=== PATIENT | male | born 1950 | race Caucasian/White ===

== ENCOUNTER 2017-01-28 15:39 | Emergency (ER) | payer OTHER ==
[2017-01-28 15:47] VITALS: BP 155/103
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
--- NOTE | 2017-01-28 17:19 | XRAY Preliminary Report ---
Exam: XR Ribs w/PA Chest LT IMPRESSION: No acute fractures identified. [facility] SITE ID: [id number]
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
== END 2017-01-28 17:36 | disposition home or self-care (01) ==
LOC: ED 15:39
DX: S20.312A Abrasion of left front wall of thorax, initial encounter (principal); Y04.2XXA Assault by strike against or bumped into by another person, initial encounter; Z02.89 Encounter for other administrative examinations; G35 Multiple sclerosis; K21.9 Gastro-esophageal reflux disease without esophagitis; M79.7 Fibromyalgia; M19.90 Unspecified osteoarthritis, unspecified site; Z86.010 Personal history of colon polyps; F17.200 Nicotine dependence, unspecified, uncomplicated
CPT/HCPCS: 99283

== ENCOUNTER 2017-01-30 17:19 | Emergency (ER) | payer OTHER ==
[2017-01-30 17:53] VITALS: BP 104/58
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
[2017-01-30 18:36] LABS: BASOPHILS % (AUTO) 0.8 %; EOSINOPHILS # (AUTO) 0.1 10^3/uL (0.0-0.7); HCT - HEMATOCRIT 40.7 % (42.0-52.0); HGB - HEMOGLOBIN 13.8 g/dL (14.0-18.0); LYMPHOCYTES # (AUTO) 1.1 10^3/uL (1.5-3.5); LYMPHOCYTES % (AUTO) 21.5 %; MEAN CORPUSCULAR HEMOGLOBIN 32.8 pg (27.0-31.0); MEAN CORPUSCULAR HGB CONC 33.9 g/dL (32.0-36.0); MEAN CORPUSCULAR VOLUME 96.7 fL (80.0-94.0); MONOCYTES # (AUTO) 0.6 10^3/uL (0.0-1.0); MONOCYTES % (AUTO) 11.8 %; NEUTROPHILS # (AUTO) 3.3 10^3/uL (1.5-6.6); NEUTROPHILS % (AUTO) 64.9 %; NUCLEATED RED BLOOD CELLS AUTO 0.1 /100WBC; RED BLOOD COUNT 4.21 10^6/uL (4.70-6.10); RED CELL DISTRIBUTION WIDTH 14.2 % (12.0-15.0)
[2017-01-30 18:48] LABS: ALBUMIN/GLOBULIN RATIO 0.8 (1.0-2.2); CALCIUM 8.7 mg/dL (8.5-10.3); CREATININE 0.8 mg/dL (0.6-1.2); POTASSIUM 3.6 mmol/L (3.5-5.0); TOTAL PROTEIN 7.6 g/dL (6.7-8.2)
--- NOTE | 2017-01-30 19:27 | XRAY Preliminary Report ---
Exam: XR Chest 2 View PA/LAT IMPRESSION: Normal 2-view chest radiography. [facility] SITE ID: [id number]
[2017-01-30] MEDS ORDERED: FUROSEMIDE 20 MG TABLET PO STA (19:46)
--- NOTE | 2017-01-30 20:10 | XRAY Report ---
EXAM: CHEST RADIOGRAPHY EXAM DATE: 01/30/2017 07:02 PM. CLINICAL HISTORY: Cough. COMPARISON: 01/28/2017. TECHNIQUE: 2 views. FINDINGS: Lungs/Pleura: No focal opacities evident. No pleural effusion. No pneumothorax. Normal volumes. Mediastinum: Heart and mediastinal contours are unremarkable. Other: Several old left rib fractures. IMPRESSION: Normal 2-view chest radiography. [facility] Referring Provider Line: [phone] SITE ID: [id number]
== END 2017-01-30 19:59 | disposition home or self-care (01) ==
LOC: ED 17:19
DX: R60.9 Edema, unspecified (principal); I50.9 Heart failure, unspecified; K21.9 Gastro-esophageal reflux disease without esophagitis; M79.7 Fibromyalgia; M19.90 Unspecified osteoarthritis, unspecified site; Z86.010 Personal history of colon polyps; F17.200 Nicotine dependence, unspecified, uncomplicated
CPT/HCPCS: 36415; 71020; 80053; 83690; 83880; 85025; 99283; 99284

== ENCOUNTER 2017-01-31 08:12 | Outpatient (CLI) | payer OTHER | END 2017-01-31 08:13 | disposition critical access hospital (66) | LOC: EMS 08:12 | PROVIDERS: ATTEND Surgery | DX: R53.1 Weakness (principal) | CPT/HCPCS: A0425; A0429 ==

== ENCOUNTER 2017-01-31 08:33 | Observation (INO) | payer OTHER ==
[2017-01-31] MEDS ORDERED: SODIUM CHLORIDE 0.9% 1,000 ML IV ONE ×2 (08:55→19:54)
[2017-01-31] MEDS ORDERED: MORPHINE 2 MG/ML CARPUJECT IVP STA ×2 (08:55→19:54)
[2017-01-31 09:15] LABS: BASOPHILS % (AUTO) 0.6 %; EOSINOPHILS % (AUTO) 0.9 %; HCT - HEMATOCRIT 38.5 % (42.0-52.0); HGB - HEMOGLOBIN 13.2 g/dL (14.0-18.0); LYMPHOCYTES # (AUTO) 0.6 10^3/uL (1.5-3.5); LYMPHOCYTES % (AUTO) 13.4 %; MEAN CORPUSCULAR HEMOGLOBIN 32.8 pg (27.0-31.0); MEAN CORPUSCULAR HGB CONC 34.4 g/dL (32.0-36.0); MEAN CORPUSCULAR VOLUME 95.3 fL (80.0-94.0); MEAN PLATELET VOLUME 8.6 fL (7.4-11.4); MONOCYTES # (AUTO) 0.5 10^3/uL (0.0-1.0); MONOCYTES % (AUTO) 12.5 %; NEUTROPHILS # (AUTO) 3.1 10^3/uL (1.5-6.6); NEUTROPHILS % (AUTO) 72.6 %; NUCLEATED RED BLOOD CELLS AUTO 0.1 /100WBC; RED BLOOD COUNT 4.04 10^6/uL (4.70-6.10); RED CELL DISTRIBUTION WIDTH 13.9 % (12.0-15.0); UNCORRECTED WHITE BLOOD COUNT 4.3 x10^3/uL; WHITE BLOOD COUNT 4.3 x10^3/uL (4.8-10.8)
[2017-01-31 09:23] LABS: INR 1.5 (0.8-1.2); PT - PROTHROMBIN TIME 17.4 secs (9.9-12.6)
[2017-01-31 09:28] LABS: ALBUMIN/GLOBULIN RATIO 0.7 (1.0-2.2); BILIRUBIN,TOTAL 3.1 mg/dL (0.2-1.0); CALCIUM 8.5 mg/dL (8.5-10.3); CREATININE 0.9 mg/dL (0.6-1.2); POTASSIUM 3.1 mmol/L (3.5-5.0); TOTAL PROTEIN 7.7 g/dL (6.7-8.2)
[2017-01-31] MEDS ORDERED: IOPAMIDOL-300 100 ML VIAL IVP ONE (09:38)
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
[2017-01-31] MEDS ORDERED: POTASSIUM CHLOR 10 MEQ/100 ML 100 ML IV ONE ×2 (09:46→11:57)
[2017-01-31] MEDS ORDERED: PIPERACILLIN/TAZOBACTAM 4.5 GM in SODIUM CHLORIDE 0.9% MINIBAG 100 ML IV STA (09:46)
--- NOTE | 2017-01-31 10:00 | CT Preliminary Report ---
Exam: CT Abdomen/Pelvis W/ IMPRESSION: 1. No evidence of acute traumatic injury to the abdomen or pelvis. 2. There is hepatic steatosis. 3. There is cholelithiasis. 4. There is lumbar spine degenerative disease. [facility] SITE ID: [id number]
[2017-01-31] MEDS ORDERED: MORPHINE 2 MG/ML CARPUJECT ONE ×2 (10:02→19:59)
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
--- NOTE | 2017-01-31 12:57 | Ultrasound Report ---
RIGHT UPPER QUADRANT ULTRASOUND: 01/31/2017 CLINICAL INDICATION: Elevated bilirubin, cholelithiasis. TECHNIQUE: Real-time scanning was performed with sales representative [employer] static images obtained. FINDINGS: The liver measures 18.5 cm. Hepatic echogenicity is increased, compatible with fatty infi ltration. No focal parenchymal lesion or intrahepatic biliary dilatation is seen. The common bile d uct measures 5 mm. A large stone is again seen in the neck of the gallbladder, with mild wall thicke den. The right kidney measures 12.2 cm, and demonstrates no hydronephrosis. No free fluid is prese nt. IMPRESSION: CHOLELITHIASIS, WITH MILD GALLBLADDER WALL THICKENING. NO EVIDENCE OF DILATATION OF THE COMMON BILE DUCT. FATTY LIVER. JOB #: [id number] EXT JOB #:[id number]
[2017-01-31] MEDS ORDERED: PIPERACILLIN/TAZOBACTAM 3.375 GM in SODIUM CHLORIDE 0.9% MINIBAG 100 ML IV SCH (18:00)
--- NOTE | 2017-01-31 22:18 | ED Physician Documentation ---
ED Addendum - Addendum Addendum: 01/31/17 23:22 Signed out to me by Dr. Berger. D/w Dr. Urbina (gen surg) from [facility] who reviewed the images and doesn't feel confident that this represents cholecystitis. States in this high risk patient, would recommend HIDA scan in AM for further evaluation. Discussed with Dr. Sarabia (gen surg here) who feels that this is reasonable and recommends obs for HIDA scan. D/w Dr. Mathis ( hospitalist) who accepts. Pt's pain well controlled here. No fevers. BP stable. Mild diffuse TTP over pts abdomen. No peritoneal signs. Departure - Departure Disposition: ED Place in Observation Clinical Impression: Pancytopenia, Hypokalemia Cholelithiasis Qualifiers: Cholelithiasis location: gallbladder Cholecystitis presence: with cholecystitis Cholecystitis acuity: unspecified acuity Biliary obstruction: without biliary obstruction Qualified Code(s): K80.00 - Calculus of gallbladder with acute cholecystitis without obstruction Condition: Fair Discharge Date/Time: 01/31/17 23:10
[2017-01-31] MEDS ORDERED: LORazepam 2 MG/ML SYRINGE IVP STA (22:21)
[2017-01-31] MEDS ORDERED: SODIUM CHLORIDE FLUSH 0.9% 10 ML SYRINGE IVP PRN (22:23)
[2017-01-31] MEDS ORDERED: ONDANSETRON 4 MG/2 ML VIAL IVP PRN (22:23)
[2017-01-31] MEDS ORDERED: oxyCODONE 5 MG TABLET PO PRN (22:23)
[2017-01-31] MEDS ORDERED: ACETAMINOPHEN 325 MG TABLET PO PRN (22:23)
[2017-01-31] MEDS ORDERED: ZOLPIDEM 5 MG TABLET PO PRN (22:23)
[2017-01-31] MEDS ORDERED: LORazepam 2 MG/ML SYRINGE IVP PRN (22:23)
[2017-01-31] MEDS ORDERED: MORPHINE 2 MG/ML CARPUJECT IVP PRN (22:23)
[2017-01-31] MEDS ORDERED: PROCHLORPERAZINE 10 MG/2 ML VIAL IVP PRN (22:23)
[2017-02-01] MEDS ORDERED: SODIUM CHLORIDE 0.9% 100ML 100 ML IV ONE (00:03)
[2017-02-01] MEDS: NS W/20 MEQ KCL 1,000 ML IV SCH ×2 (00:14→11:25)
[2017-02-01] MEDS: PIPERACILLIN/TAZOBACTAM 3.375 GM in SODIUM CHLORIDE 0.9% MINIBAG 100 ML IV SCH ×2 (00:14→00:53)
[2017-02-01] MEDS: SODIUM CHLORIDE FLUSH 0.9% 10 ML SYRINGE IVP SCH ×2 (00:15→15:18)
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
[2017-02-01] MEDS: oxyCODONE 5 MG TABLET PO PRN ×2 (06:06→16:57)
[2017-02-01 06:31] LABS: BASOPHILS % (AUTO) 0.6 %; EOSINOPHILS # (AUTO) 0.1 10^3/uL (0.0-0.7); EOSINOPHILS % (AUTO) 3.1 %; HCT - HEMATOCRIT 37.7 % (42.0-52.0); HGB - HEMOGLOBIN 12.9 g/dL (14.0-18.0); LYMPHOCYTES # (AUTO) 0.7 10^3/uL (1.5-3.5); LYMPHOCYTES % (AUTO) 21.2 %; MEAN CORPUSCULAR HEMOGLOBIN 33.2 pg (27.0-31.0); MEAN CORPUSCULAR HGB CONC 34.1 g/dL (32.0-36.0); MEAN CORPUSCULAR VOLUME 97.4 fL (80.0-94.0); MEAN PLATELET VOLUME 8.6 fL (7.4-11.4); MONOCYTES # (AUTO) 0.5 10^3/uL (0.0-1.0); MONOCYTES % (AUTO) 15.2 %; NEUTROPHILS % (AUTO) 59.9 %; NUCLEATED RED BLOOD CELLS AUTO 0.2 /100WBC; RED BLOOD COUNT 3.87 10^6/uL (4.70-6.10); RED CELL DISTRIBUTION WIDTH 14.1 % (12.0-15.0); UNCORRECTED WHITE BLOOD COUNT 3.4 x10^3/uL; WHITE BLOOD COUNT 3.4 x10^3/uL (4.8-10.8)
[2017-02-01 06:38] LABS: ALBUMIN/GLOBULIN RATIO 0.8 (1.0-2.2); BILIRUBIN,TOTAL 2.7 mg/dL (0.2-1.0); CALCIUM 7.9 mg/dL (8.5-10.3); CREATININE 0.8 mg/dL (0.6-1.2); MAGNESIUM 1.5 mg/dL (1.7-2.8); PHOSPHORUS 3.1 mg/dL (2.5-4.6); POTASSIUM 3.3 mmol/L (3.5-5.0); TOTAL PROTEIN 6.7 g/dL (6.7-8.2)
[2017-02-01] MEDS ORDERED: PANTOPRAZOLE 40 MG TABLET PO SCH (07:00)
[2017-02-01] MEDS ORDERED: MAGNESIUM SULFATE 2 GRAM 50 ML IV ONE ×2 (07:45→08:02)
[2017-02-01] MEDS ORDERED: LORazepam 2 MG/ML SYRINGE IVP PRN (08:51)
[2017-02-01] MEDS ORDERED: THIAMINE 100 MG TABLET PO SCH (09:00)
[2017-02-01] MEDS ORDERED: POLYETHYLENE GLYCOL 3350 17 GM PACKET PO SCH (09:00)
[2017-02-01] MEDS ORDERED: MULTIVITAMIN 10 ML in SODIUM CHLORIDE 0.9% 1,000 ML IV SCH ×2 (09:00→17:00)
[2017-02-01] MEDS ORDERED: THIAMINE INJ 100 MG, FOLIC ACID INJ 1 MG in SODIUM CHLORIDE 0.9% 100ML 100 ML IV SCH (09:00)
[2017-02-01] MEDS ORDERED: PRENATAL VITAMIN TABLET PO SCH (09:00)
--- NOTE | 2017-02-01 10:27 | PROVIDER PROGRESS NOTE ---
Assessment/Plan - Problem List (2) Hypomagnesemia Assessment/Plan: acute on chronic. patient drinks alcohol daily and this is probably chronic. replace with magnesium sulfate IV and repeat lab values with daily draw - Current Meds Current Meds: Current Medications Generic Name Dose Route Start Last Admin Trade Name Freq PRN Reason Stop Dose Admin Piperacillin Sod/Tazobactam 100 mls @ 200 mls/hr 01/31/17 20:00 02/01/17 00:53 Sod 3.375 gm/ Sodium Chloride IV Not Given Q6H RIN Potassium Chloride/Sodium Chloride 1,000 mls @ 100 mls/hr 01/31/17 23:00 00:14 Normal Saline 0.9% W/20 Meq Kcl IV 100 mls/hr .Q10H RIN Administration Lorazepam 1 mg 02/01/17 08:51 02/01/17 09:39 Ativan Inj IVP 1 mg Q2HR PRN Administration Anxiety Oxycodone HCl 5 mg 01/31/17 22:23 02/01/17 06:06 Roxicodone PO 5 mg Q4HR PRN Administration Pain 5 to 7 Pantoprazole Sodium 40 mg 02/01/17 07:00 02/01/17 06:05 Protonix PO 40 mg QDAC RIN Administration Polyethylene Glycol 17 gm 02/01/17 09:00 02/01/17 09:12 Miralax PO Not Given DAILY RIN Multivit/Folic Acid/Iron 1 tab 02/01/17 09:00 02/01/17 09:13 Trinatal Rx 1 PO Not Given DAILY RIN Sodium Chloride 10 ml 01/31/17 22:23 02/01/17 09:38 Normal Saline Flush 0.9% IVP 20 ml PRN PRN Administration NEEDED PER PROVIDER ORDERS Sodium Chloride 10 ml 02/01/17 06:00 02/01/17 00:15 Normal Saline Flush 0.9% IVP 10 ml Q8HR RIN Administration Thiamine HCl 100 mg 02/01/17 09:00 02/01/17 09:13 Vitamin B-1 PO Not Given DAILY RIN - Lab Result Lab results reviewed: Yes Fish Bone Diagrams: 02/01/17 06:20 02/01/17 06:20 Other Lab Results: Abnormal Lab Results 01/31/17 01/31/17 01/31/17 09:01 09:01 09:01 WBC 4.3 x10^3/uL L x10^3/uL (4.8-10.8) RBC 4.04 10^6/uL L 10^6/uL (4.70-6.10) Hgb 13.2 g/dL L g/dL (14.0-18.0) Hct 38.5 % L % (42.0-52.0) MCV 95.3 fL H fL (80.0-94.0) MCH 32.8 pg H pg (27.0-31.0) Plt Count 47 10^3/uL L 10^3/uL (130-450) Lymph # 0.6 10^3/uL L 10^3/uL (1.5-3.5) PT 17.4 secs H secs (9.9-12.6) INR 1.5 H (0.8-1.2) Potassium 3.1 mmol/L L mmol/L (3.5-5.0) Chloride 100 mmol/L L mmol/L (101-111) Estimated GFR (MDRD) 84 L (>89) Glucose 139 mg/dL H mg/dL (70-100) Calcium Magnesium Total Bilirubin 3.1 mg/dL H mg/dL (0.2-1.0) AST 65 IU/L H IU/L (10-42) Alkaline Phosphatase 348 IU/L H IU/L (42-121) Albumin Globulin 4.5 g/dL H g/dL (2.1-4.2) Albumin/Globulin Ratio 0.7 L (1.0-2.2) 02/01/17 02/01/17 02/01/17 06:20 06:20 06:20 WBC 3.4 x10^3/uL L x10^3/uL (4.8-10.8) RBC 3.87 10^6/uL L 10^6/uL (4.70-6.10) Hgb 12.9 g/dL L g/dL (14.0-18.0) Hct 37.7 % L % (42.0-52.0) MCV 97.4 fL H fL (80.0-94.0) MCH 33.2 pg H pg (27.0-31.0) Plt Count 45 10^3/uL L 10^3/uL (130-450) Lymph # 0.7 10^3/uL L 10^3/uL (1.5-3.5) PT INR Potassium 3.3 mmol/L L mmol/L (3.5-5.0) Chloride Estimated GFR (MDRD) Glucose Calcium 7.9 mg/dL L mg/dL (8.5-10.3) Magnesium 1.5 mg/dL L mg/dL 1.5 mg/dL L mg/dL (1.7-2.8) (1.7-2.8) Total Bilirubin 2.7 mg/dL H mg/dL (0.2-1.0) AST 54 IU/L H IU/L (10-42) Alkaline Phosphatase 297 IU/L H IU/L (42-121) Albumin 2.9 g/dL L g/dL (3.2-5.5) Globulin Albumin/Globulin Ratio 0.8 L (1.0-2.2) - EKG Results EKG Interpreted Independently: No - Additional Planning My Orders: My Active Orders 02/01/17 08:51 LORazepam INJ [Ativan Inj] 1 mg IVP Q2HR PRN 02/01/17 10:22 GAMMA GLUTAMYL TRANSPEPTIDASE [CHEM] Stat Objective Vital Signs: Vital Signs - 24 hr 01/31/17 02/01/17 02/01/17 22:30 00:22 05:00 Temperature 37.0 C 37.1 C Heart Rate 57 L Heart Rate [ 73 73 Monitoring electrodes] Respiratory 18 18 16 Rate Blood Pressure 164/85 H Blood Pressure 156/87 H 146/91 H [Left Brachial artery] O2 Saturation 100 98 97 02/01/17 08:04 Temperature 37.2 C Heart Rate Heart Rate [ 70 Monitoring electrodes] Respiratory 17 Rate Blood Pressure Blood Pressure 145/90 H [Left Brachial artery] O2 Saturation 97 Oxygen O2 Source Room air I&O (Last 24 Hrs): Intake and Output Totals x24h 01/30/17 01/31/17 02/01/17 23:59 23:59 23:59 Intake Total 577 Output Total 725 Balance -148 - Results Results: Laboratory Results WBC 3.4 x10^3/uL (4.8-10.8) L 02/01/17 06:20 RBC 3.87 10^6/uL (4.70-6.10) L 02/01/17 06:20 Hgb 12.9 g/dL (14.0-18.0) L 02/01/17 06:20 Hct 37.7 % (42.0-52.0) L 02/01/17 06:20 MCV 97.4 fL (80.0-94.0) H 02/01/17 06:20 MCH 33.2 pg (27.0-31.0) H 02/01/17 06:20 MCHC 34.1 g/dL (32.0-36.0) 02/01/17 06:20 RDW 14.1 % (12.0-15.0) 02/01/17 06:20 Plt Count 45 10^3/uL (130-450) L 02/01/17 06:20 MPV 8.6 fL (7.4-11.4) 02/01/17 06:20 Neut # 2.0 10^3/uL (1.5-6.6) 02/01/17 06:20 Lymph # 0.7 10^3/uL (1.5-3.5) L 02/01/17 06:20 [place] # 0.5 10^3/uL (0.0-1.0) 02/01/17 06:20 Eos # 0.1 10^3/uL (0.0-0.7) 02/01/17 06:20 Baso # 0.0 10^3/uL (0.0-0.1) 02/01/17 06:20 Absolute Nucleated RBC 0.01 x10^3/uL 02/01/17 06:20 Nucleated RBCs 0.2 /100WBC 02/01/17 06:20 PT 17.4 secs (9.9-12.6) H 01/31/17 09:01 INR 1.5 (0.8-1.2) H 01/31/17 09:01 Sodium 136 mmol/L (135-145) 02/01/17 06:20 Potassium 3.3 mmol/L (3.5-5.0) L 02/01/17 06:20 Chloride 104 mmol/L (101-111) 02/01/17 06:20 Carbon Dioxide 26 mmol/L (21-32) 02/01/17 06:20 Anion Gap 6.0 (6-13) 02/01/17 06:20 BUN 10 mg/dL (6-20) 02/01/17 06:20 Creatinine 0.8 mg/dL (0.6-1.2) 02/01/17 06:20 Estimated GFR (MDRD) 97 (>89) 02/01/17 06:20 Glucose 92 mg/dL (70-100) 02/01/17 06:20 Lactic Acid 1.0 mmol/L (0.5-2.2) 02/01/17 06:20 Calcium 7.9 mg/dL (8.5-10.3) L 02/01/17 06:20 Phosphorus 3.1 mg/dL (2.5-4.6) 02/01/17 06:20 Magnesium 1.5 mg/dL (1.7-2.8) L 02/01/17 06:20 Total Bilirubin 2.7 mg/dL (0.2-1.0) H 02/01/17 06:20 AST 54 IU/L (10-42) H 02/01/17 06:20 ALT 28 IU/L (10-60) 02/01/17 06:20 Alkaline Phosphatase 297 IU/L (42-121) H 02/01/17 06:20 Troponin I < 0.04 ng/mL (<0.49) 01/31/17 09:01 Total Protein 6.7 g/dL (6.7-8.2) 02/01/17 06:20 Albumin 2.9 g/dL (3.2-5.5) L 02/01/17 06:20 Globulin 3.8 g/dL (2.1-4.2) 02/01/17 06:20 Albumin/Globulin Ratio 0.8 (1.0-2.2) L 02/01/17 06:20 Lipase 32 U/L (22-51) 01/31/17 09:01 Blood Type B POSITIVE 01/31/17 09:01 Antibody Screen NEGATIVE 01/31/17 09:01 - Procedures Procedures: Procedures CLOSURE SKIN & SUBCUTANEOUS NEC (02/07/13) TRANSFUSE NONAUT FROZEN PLASMA IN PERIPH VEIN, PERC (01/22/16) TRANSFUSE NONAUT PLATELETS IN PERIPH VEIN, PERC (01/22/16)
[2017-02-01] MEDS ORDERED: PIPERACILLIN/TAZOBACTAM 3.375 GM in SODIUM CHLORIDE 0.9% MINIBAG 100 ML IV SCH (12:00)
--- NOTE | 2017-02-01 12:09 | Nuclear Medicine Prelim Report ---
Exam: NM Hepatobiliary HIDA w/o Rx IMPRESSION: 1. There is activity in what appears to be the gallbladder indicating patency of the cystic duct. 2. Patent common bile duct. 3. The gallbladder does not appear to fill completely, possibly contracted, negative for acute cholec ystitis at this time. 4. No enterogastric bile reflux. [facility] SITE ID: [id number]
--- NOTE | 2017-02-01 12:12 | Nuclear Medicine Report ---
EXAM: HEPATOBILIARY SCAN EXAM DATE: 02/01/2017 11:17 AM. CLINICAL HISTORY: Abd pain w gallstone and wall thickening on US. COMPARISON: CT and ultrasound exams 01/31/2017 TECHNIQUE: Following the intravenous administration of 7.9 mCi of Tc99m Mebrofenin, a hepatobiliary s can was done centered on the right upper quadrant region in multiple sequential images and projection s. Morphine sulfate given: No. Four-hour delayed images performed: No. FINDINGS: Normal extraction of tracer from the blood pool indicating normal hepatocellular function. The liver size and shape is grossly within normal limits. There is activity visualized within the bile ducts and small bowel within the first 40 minutes. There is also activity in what appears to be a small or contracted gallbladder. IMPRESSION: 1. There is activity in what appears to be the gallbladder indicating patency of the cystic duct. 2. Patent common bile duct. 3. The gallbladder does not appear to fill completely, possibly contracted, negative for acute cholec ystitis at this time. 4. No enterogastric bile reflux. [facility] Referring Provider Line: [phone] SITE ID: [id number]
--- NOTE | 2017-02-01 13:12 | Discharge Plan ---
Discharge Plan Disposition: Home, Self Care Condition: Fair Prescriptions: oxyCODONE [Roxicodone] 10 mg PO Q4HR PRN #12 tablet PRN Reason: Pain 8 to 10 Magnesium Oxide [Mag Ox] 400 mg PO DAILYWM #30 tablet Pantoprazole [Protonix] 40 mg PO QDAC #30 tablet Vitamin [Trinatal Rx 1] 1 tab PO DAILY #30 tablet Thiamine [Vitamin B-1] 100 mg PO DAILY #30 tablet Cholecalciferol (Vitamin D3) [Vitamin D3] 5,000 unit PO BID #60 capsule Diet: Low Sodium Activity Restrictions: Wt Bearing as Tolerated Shower Restrictions: No Driving Restrictions: No Assistance Devices: Walker, Cane Weight Bearing: Full Weight Instruction Topics: Magnesium Salts capsules or tablets immediate release, Pantoprazole tablets, Thiamine Vitamin B1 tablets, Vitamin and Mineral Combinations oral solid dosage forms, Cholecalciferol capsules tablets or chewable dosage forms, Oxycodone tablets or capsules, Alcoholism Get Help, Addiction Alcohol Additional Instructions or Follow Up instructions: 1. Take the medication as prescribed. You will need to see your primary care provider if you need medications refilled 2. Stop drinking alcohol. you have been given some resources to help quit. 3. You need to eat a diet that is low in salt or sodium. You need to avoid soda and drink more water daily 4. Make sure you get rest and exercise during the day. 5. You need to return to the ER if you have chest pain, blood in stool, or shortness of breath. 6. You need to stop smoking and education for stopping has been provided. No Smoking: If you smoke, Please STOP! Call for help. Follow-up with: Rommel Sena MD [Primary Care Provider] -
[2017-02-01] MEDS ORDERED: MAGNESIUM OXIDE 400 MG TABLET PO SCH (14:00)
[2017-02-01 18:04] VITALS: BP 132/84
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
== END 2017-02-01 18:25 | disposition home or self-care (01) ==
LOC: EDUNIT# → ED 08:33 → SDS 15:00 → OBS 22:23
PROVIDERS: ADMIT Internal Medicine; ATTEND Nurse Practitioner
DX: R10.84 Generalized abdominal pain (principal); R10.817 Generalized abdominal tenderness; W22.8XXA Striking against or struck by other objects, initial encounter; K80.20 Calculus of gallbladder without cholecystitis without obstruction; D61.818 Other pancytopenia; E87.6 Hypokalemia; I95.9 Hypotension, unspecified; G89.4 Chronic pain syndrome; G35 Multiple sclerosis; K21.9 Gastro-esophageal reflux disease without esophagitis; M19.90 Unspecified osteoarthritis, unspecified site; M79.7 Fibromyalgia; K76.0 Fatty (change of) liver, not elsewhere classified; F10.29 Alcohol dependence with unspecified alcohol-induced disorder; F17.210 Nicotine dependence, cigarettes, uncomplicated; F32.9 Major depressive disorder, single episode, unspecified; F43.10 Post-traumatic stress disorder, unspecified; F41.9 Anxiety disorder, unspecified; Z96.659 Presence of unspecified artificial knee joint; Z90.81 Acquired absence of spleen; Z59.0 Homelessness; Z91.81 History of falling; Z86.010 Personal history of colon polyps
CPT/HCPCS: 36415; 74177; 76705; 78226; 80053; 82977; 83605; 83690; 83735; 84100; 84484; 85025; 85610; 86850; 86900; 86901; 96361; 96365; 96366; 96367; 96375; 96376; 99284; 99285; A9270; A9537; G0378; J2060; J3411; Q9967

== ENCOUNTER 2017-02-07 18:13 | Outpatient (CLI) | payer OTHER | END 2017-02-07 18:14 | disposition critical access hospital (66) | LOC: EMS 18:13 | PROVIDERS: ATTEND Surgery | DX: R53.1 Weakness (principal); M79.605 Pain in left leg; M79.604 Pain in right leg | CPT/HCPCS: A0425; A0429 ==

== ENCOUNTER 2017-02-07 18:32 | Emergency (ER) | payer OTHER ==
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
[2017-02-07] MEDS ORDERED: oxyCODONE 5 MG TABLET PO STA (19:29)
[2017-02-07] MEDS ORDERED: oxyCODONE 5 MG TABLET ONE (19:49)
--- NOTE | 2017-02-07 20:19 | XRAY Preliminary Report ---
Exam: XR Knee 4 View LT IMPRESSION: 1. No fracture or joint effusion. 2. No significant degenerative changes. 3. Prepatellar soft tissue swelling is nonspecific but can be seen in the setting of hematoma and bur sitis. [facility] SITE ID: [id number]
--- NOTE | 2017-02-07 20:21 | XRAY Preliminary Report ---
Exam: XR Tib/Fib LT IMPRESSION: 1. No fracture. 2. Prepatellar soft tissue swelling is nonspecific but can be seen in the setting of hematoma and bur sitis. 3. Mild soft tissue swelling about the ankle. [facility] SITE ID: [id number]
--- NOTE | 2017-02-07 20:22 | XRAY Report ---
EXAM: LEFT KNEE RADIOGRAPHY EXAM DATE: 02/07/2017 08:01 PM. CLINICAL HISTORY: Leg injury. COMPARISON: None. TECHNIQUE: 4 views. FINDINGS: Bones: Normal. No fractures or bone lesions. Joints: Normal. No effusion. No subluxations. Soft Tissues: Prepatellar soft tissue swelling. IMPRESSION: 1. No fracture or joint effusion. 2. No significant degenerative changes. 3. Prepatellar soft tissue swelling is nonspecific but can be seen in the setting of hematoma and bur sitis. [facility] Referring Provider Line: [phone] SITE ID: [id number]
--- NOTE | 2017-02-07 20:24 | XRAY Report ---
EXAM: RIGHT/LEFT TIBIA/FIBULA RADIOGRAPHY EXAM DATE: 02/07/2017 08:01 PM. CLINICAL HISTORY: Leg injury with pain. COMPARISON: None. TECHNIQUE: 5 views. FINDINGS: Bones: Normal. No fracture or bone lesion. Joints: The visualized knee and ankle joints are normal. No effusions. Soft Tissues: Prepatellar soft tissue swelling. Soft tissue swelling about the ankle. IMPRESSION: 1. No fracture. 2. Prepatellar soft tissue swelling is nonspecific but can be seen in the setting of hematoma and bur sitis. 3. Mild soft tissue swelling about the ankle. [facility] Referring Provider Line: [phone] SITE ID: [id number]
--- NOTE | 2017-02-07 20:24 | XRAY Preliminary Report ---
Exam: XR Femur 2V LT IMPRESSION: 1. No acute fracture. 2. Amorphous wispy calcifications along the lateral and medial aspect of the left femur are nonspecif ic but can be seen in the setting of prior trauma. No cortical irregularity or periosteal reaction of the underlying femur. [facility] SITE ID: [id number]
--- NOTE | 2017-02-07 20:27 | XRAY Report ---
EXAM: LEFT FEMUR RADIOGRAPHY EXAM DATE: 02/07/2017 08:00 PM. CLINICAL HISTORY: Leg injury with leg pain. COMPARISON: None. TECHNIQUE: 2 views. FINDINGS: Bones: Normal. No fracture or bone lesion. Joints: The visualized hip and knee joints are normal. No effusions. Soft Tissues: Subtle amorphous wispy calcifications along the lateral and medial aspect of the proxim al left femur. IMPRESSION: 1. No acute fracture. 2. Amorphous wispy calcifications along the lateral and medial aspect of the left femur are nonspecif ic but can be seen in the setting of prior trauma. No cortical irregularity or periosteal reaction of the underlying femur. [facility] Referring Provider Line: [phone] SITE ID: [id number]
[2017-02-07 20:55] VITALS: BP 148/89
== END 2017-02-07 21:04 | disposition home or self-care (01) ==
LOC: EDUNIT# → ED 18:32
DX: S80.12XA Contusion of left lower leg, initial encounter (principal); Y04.2XXA Assault by strike against or bumped into by another person, initial encounter; R03.0 Elevated blood-pressure reading, without diagnosis of hypertension; G35 Multiple sclerosis; K21.9 Gastro-esophageal reflux disease without esophagitis; M19.90 Unspecified osteoarthritis, unspecified site; M79.7 Fibromyalgia; Z86.010 Personal history of colon polyps; F10.20 Alcohol dependence, uncomplicated; F17.200 Nicotine dependence, unspecified, uncomplicated
CPT/HCPCS: 36415; 73552; 73564; 73590; 80320; 99283; A9270

== ENCOUNTER 2017-08-17 13:46 | Outpatient (CLI) | payer OTHER | END 2017-08-17 13:47 | disposition critical access hospital (66) | LOC: EMS 13:46 | PROVIDERS: ATTEND Surgery | DX: K92.1 Melena (principal); R07.9 Chest pain, unspecified | CPT/HCPCS: A0425; A0429 ==

== ENCOUNTER 2017-08-17 14:06 | Emergency (ER) | payer OTHER ==
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
[2017-08-17 14:36] LABS: BASOPHILS # (AUTO) 0.1 10^3/uL (0.0-0.1); BASOPHILS % (AUTO) 1.7 %; EOSINOPHILS # (AUTO) 0.1 10^3/uL (0.0-0.7); EOSINOPHILS % (AUTO) 1.5 %; HGB - HEMOGLOBIN 14.3 g/dL (14.0-18.0); LYMPHOCYTES # (AUTO) 1.7 10^3/uL (1.5-3.5); LYMPHOCYTES % (AUTO) 33.4 %; MEAN CORPUSCULAR HEMOGLOBIN 32.7 pg (27.0-31.0); MEAN CORPUSCULAR HGB CONC 33.6 g/dL (32.0-36.0); MEAN CORPUSCULAR VOLUME 97.5 fL (80.0-94.0); MEAN PLATELET VOLUME 7.5 fL (7.4-11.4); MONOCYTES # (AUTO) 0.4 10^3/uL (0.0-1.0); MONOCYTES % (AUTO) 7.8 %; NEUTROPHILS # (AUTO) 2.8 10^3/uL (1.5-6.6); NEUTROPHILS % (AUTO) 55.6 %; PLT - PLATELET COUNT 104 10^3/uL (130-450); RED BLOOD COUNT 4.38 10^6/uL (4.70-6.10); RED CELL DISTRIBUTION WIDTH 14.6 % (12.0-15.0); WHITE BLOOD COUNT 5.1 x10^3/uL (4.8-10.8)
[2017-08-17 14:43] LABS: INR 1.3 (0.8-1.2); PT - PROTHROMBIN TIME 14.8 secs (9.9-12.6)
[2017-08-17 14:50] LABS: ALBUMIN 3.4 g/dL (3.2-5.5); ALBUMIN/GLOBULIN RATIO 0.7 (1.0-2.2); BILIRUBIN,TOTAL 1.5 mg/dL (0.2-1.0); CALCIUM 8.5 mg/dL (8.5-10.3); CREATININE 0.7 mg/dL (0.6-1.2)
[2017-08-17 15:19] VITALS: BP 132/82
== END 2017-08-17 15:40 | disposition home or self-care (01) ==
LOC: EDUNIT# → ED 14:06
DX: F10.19 Alcohol abuse with unspecified alcohol-induced disorder (principal); K92.2 Gastrointestinal hemorrhage, unspecified; G35 Multiple sclerosis; F17.200 Nicotine dependence, unspecified, uncomplicated; Z96.659 Presence of unspecified artificial knee joint; Z90.81 Acquired absence of spleen
CPT/HCPCS: 36415; 80053; 80320; 83690; 85025; 85610; 86850; 86900; 86901; 99283; 99284

== ENCOUNTER 2017-09-01 09:41 | Emergency (ER) | payer OTHER ==
--- NOTE | 2017-09-01 11:29 | XRAY Preliminary Report ---
Exam: XR FEMUR 2V LT IMPRESSION: No acute osseous abnormality. [facility] SITE ID: [id number]
--- NOTE | 2017-09-01 11:29 | XRAY Report ---
EXAM: LEFT FEMUR RADIOGRAPHY EXAM DATE: 09/01/2017 11:06 AM. CLINICAL HISTORY: Fall hip contusion medial pain . COMPARISON: 02/07/2017. TECHNIQUE: 2 views. 5 images are provided. FINDINGS: Bones: No acute fracture. Increased density of the calcifications adjacent to the proximal femoral di aphysis suggesting evolving sequela of prior trauma. Joints: No dislocation. Soft Tissues: There appears to soft tissue swelling centered over the greater trochanter. IMPRESSION: No acute osseous abnormality. [facility] Referring Provider Line: [phone] SITE ID: [id number]
--- NOTE | 2017-09-01 11:31 | XRAY Preliminary Report ---
Exam: XR TIB/FIB LT IMPRESSION: No acute osseous abnormality. No significant change from prior. [facility] SITE ID: [id number]
--- NOTE | 2017-09-01 11:31 | XRAY Report ---
EXAM: LEFT TIBIA/FIBULA RADIOGRAPHY EXAM DATE: 09/01/2017 11:07 AM. CLINICAL HISTORY: Fall LE pain/swelling. COMPARISON: 02/07/2017. TECHNIQUE: 2 views. 4 images are provided. FINDINGS: Bones: No acute fracture. Chronic changes of the distal fibula and imaged hindfoot. Joints: No dislocation. Soft Tissues: Diffuse soft tissue swelling. IMPRESSION: No acute osseous abnormality. No significant change from prior. [facility] Referring Provider Line: [phone] SITE ID: [id number]
--- NOTE | 2017-09-01 11:57 | ED Physician Documentation ---
PD HPI LOWER EXT INJURY - Stated complaint Stated Complaint: FALL/LT SIDE PX - Chief complaint Chief Complaint: Ext Problem - History obtained from History obtained from: Patient - History of Present Illness PD HPI LOW EXT INJURY LOCATION: Left, Hip, Lower leg Type of injury: Fall Where injury occurred: Home Timing - onset: How many days ago (3) Timing - duration: Days (3) Timing - details: Abrupt onset, Still present Improved by: Rest, Immobilization Worsened by: Moving, Palpating Associated symptoms: Weakness (generalized) Similar symptoms before: Diagnosis (hip fracture) Recently seen: Emergency Dept - Additional information Additional information: 66-year-old male with history of chronic alcohol abuse and fibromyalgia as well as MS has recently been seen in the emergency department for GI bleeding with a stable hct and today he is in the ED with weakness and a recent fall. He indicates that he was using his scooter and going up a ramp at a friends home and he was unable to get the chair turned around and he ended up going backwards down a set of steps and having the scooter land on top of him. He states he injured the left side of his body with the fall and complains of pain in the left hip and leg all the way down the calf. He notes that the leg is red and swollen and this is new. He usually has some swelling but this has been more than usual and the redness is different. He denies alcohol consumption recently. Review of Systems Constitutional: reports: Myalgias, Fatigue. denies: Fever, Chills Eyes: denies: Decreased vision Ears: denies: Ear pain Nose: denies: Rhinorrhea / runny nose, Congestion Throat: denies: Sore throat Cardiac: denies: Chest pain / pressure, Palpitations Respiratory: reports: Cough. denies: Dyspnea GI: denies: Abdominal Pain : denies: Dysuria, Frequency Skin: denies: Rash Musculoskeletal: reports: Back pain, Extremity pain, Extremity swelling, Pain with weight bearing. denies: Neck pain Neurologic: reports: Generalized weakness. denies: Focal weakness, Numbness PD PAST MEDICAL HISTORY - Past Medical History Past Medical History: Yes Cardiovascular: None Respiratory: None Neuro: Multiple sclerosis Endocrine/Autoimmune: None GI: GERD, Colon polyps : None HEENT: None Psych: Depression, Post traumatic stress disorder Musculoskeletal: Osteoarthritis, Fibromyalgia Derm: None - Past Surgical History Past Surgical History: Yes General: Splenectomy Ortho: Knee replacement, Other - Present Medications Home Medications: Ambulatory Orders Medication Instructions Recorded Confirmed raNITIdine [Zantac] 150 mg PO DAILY 01/30/17 02/07/17 oxyCODONE [Roxicodone] 5 mg PO Q4-6H PRN #10 tablet 02/07/17 Omeprazole [PriLOSEC] 20 mg PO DAILY #14 capsule 08/17/17 Amox/Clav 875/125 [Augmentin] 1 each PO Q12H #14 tablet 09/01/17 - Allergies Allergies/Adverse Reactions: Allergies Allergy/AdvReac Type Severity Reaction Status Date / Time ibuprofen [From Motrin] AdvReac Mild Nausea Verified 09/01/17 09:51 acetaminophen [From Tylenol] AdvReac Unknown Verified 09/01/17 09:51 NSAIDS (Non-Steroidal AdvReac Nausea Verified 09/01/17 09:51 Anti-Inflamma - Social History Does the pt smoke?: Yes Smoking Status: Current every day smoker Does the pt drink ETOH?: Yes Does the pt have substance abuse?: No - Immunizations Immunizations are current?: No Immunizations: TDAP >10years/unknown - POLST Patient has POLST: No POLST Status: Full Code PD ED PE NORMAL - Vitals Vital signs reviewed: Yes (hypertensive) - General General: Alert and oriented X 3, Well developed/nourished, Other (The patient is a deshoveled 66 y/o male with a long thick florian and he [place] in a [place]. He mumbles a lot when he talks. ) - HEENT HEENT: Atraumatic, PERRL, EOMI, Other (dry mucous membranes) - Neck Neck: Supple, no meningeal sign, No bony TTP, Other (There is JVD present with CVP estimated at 5cm. ) - Cardiac Cardiac: RRR, No murmur - Respiratory Respiratory: No respiratory distress, Other (scattered wheezes bilaterally ) - Abdomen Abdomen: Soft, Non tender, Other (well healed left perpendicular to axis surgical scar) - Back Back: No CVA TTP, No spinal TTP - Derm Derm: Warm and dry, No rash - Extremities Extremities: Other (There is bilateral edema pitting and worse on the left. There is post inflamitory hyperpigmentation consistent with venous stasis disease on the right and acute inflamation on the left that extends to the mid calf and over the patella there is an entrance wound aobut 2cm round with surrounding erythema/swelling) - Neuro Neuro: Alert and oriented X 3, steward/stewardess third 2-12 intact, No motor deficit, No sensory deficit, Normal speech Eye Opening: Spontaneous Motor: Obeys Commands Verbal: Oriented GCS Score: 15 - Psych Psych: Normal mood, Normal affect Results - Vitals Vitals: Vital Signs - 24 hr 09/01/17 09:45 Temperature 36.8 C Heart Rate 88 Respiratory 16 Rate Blood Pressure 147/89 H O2 Saturation 96 Oxygen O2 Source Room air - Labs Labs: Laboratory Tests 09/01/17 09/01/17 09/01/17 14:35 14:35 14:35 WBC 3.7 L RBC 3.91 L Hgb 13.1 L Hct 38.4 L MCV 98.1 H MCH 33.5 H MCHC 34.1 RDW 14.4 Plt Count 71 L MPV 8.7 Neut # 2.3 Lymph # 0.7 L [place] # 0.5 Eos # 0.1 Baso # 0.2 H Absolute Nucleated RBC 0.00 Nucleated RBC % 0.0 Sodium 138 Potassium 3.9 Chloride 105 Carbon Dioxide 25 Anion Gap 8.0 BUN 8 Creatinine 0.6 Estimated GFR (MDRD) 135 Glucose 100 Lactic Acid Calcium 8.4 L Total Bilirubin 2.4 H AST 57 H ALT 30 Alkaline Phosphatase 151 H Total Creatine Kinase 67 CK-MB (CK-2) 2.1 Troponin I < 0.04 Total Protein 7.0 Albumin 3.1 L Globulin 3.9 Albumin/Globulin Ratio 0.8 L Lipase 42 Ethyl Alcohol < 5.0 09/01/17 14:35 WBC RBC Hgb Hct MCV MCH MCHC RDW Plt Count MPV Neut # Lymph # Door # Eos # Baso # Absolute Nucleated RBC Nucleated RBC % Sodium Potassium Chloride Carbon Dioxide Anion Gap BUN Creatinine Estimated GFR (MDRD) Glucose Lactic Acid 1.2 Calcium Total Bilirubin AST ALT Alkaline Phosphatase Total Creatine Kinase CK-MB (CK-2) Troponin I Total Protein Albumin Globulin Albumin/Globulin Ratio Lipase Ethyl Alcohol - Rads (name of study) tib/fib Radiology: Prelim report reviewed (Impression: No acute osseous abnormality. No significant change from prior.), EMP read indepedently, See rad report femur Radiology: Prelim report reviewed (Impression: No acute osseous abnormality.), EMP read indepedently, See rad report PD MEDICAL DECISION MAKING - ED course Complexity details: reviewed old records, reviewed results, re-evaluated patient , considered differential, d/w patient ED course: 66-year-old male with a history of chronic alcohol abuse, MS fibromyalgia has had a fall in his scooter and has increased pain in the left leg. There are no fractures present. He has some swelling and erythema consistent with cellulitis. He does not have a fever and WBC is normal. The infectious load of the left LE is moderate and here in the ED he is administered a banana bag IV and rocephin and we will treat as outpatient. Departure - Departure Disposition: 01 Home, Self Care Clinical Impression: Cellulitis Qualifiers: Site of cellulitis: extremity Site of cellulitis of extremity: lower extremity Laterality: left Qualified Code(s): L03.116 - Cellulitis of left lower limb Contusion, hip Qualifiers: Encounter type: initial encounter Laterality: left Qualified Code(s): S70.02XA - Contusion of left hip, initial encounter Contusion of left calf Qualifiers: Encounter type: initial encounter Qualified Code(s): S80.12XA - Contusion of left lower leg, initial encounter Condition: Stable Instructions: ED Infec Skin Cellulitis, ED Contusion Hip Follow-Up: [facility] [Provider Group] Prescriptions: Amox/Clav 875/125 [Augmentin] 1 each PO Q12H #14 tablet
[2017-09-01] MEDS ORDERED: MAGNESIUM SULFATE 2 GRAM 2 GM/50 ML BAG IV STA (14:07)
[2017-09-01] MEDS ORDERED: THIAMINE INJ 100 MG, FOLIC ACID INJ 1 MG in SODIUM CHLORIDE 0.9% 100ML 100 ML IV STA (14:07)
[2017-09-01] MEDS ORDERED: MULTIVITAMIN 10 ML in SODIUM CHLORIDE 0.9% 1,000 ML IV STA (14:07)
[2017-09-01 14:47] LABS: BASOPHILS # (AUTO) 0.2 10^3/uL (0.0-0.1); EOSINOPHILS # (AUTO) 0.1 10^3/uL (0.0-0.7); EOSINOPHILS % (AUTO) 1.5 %; HGB - HEMOGLOBIN 13.1 g/dL (14.0-18.0); LYMPHOCYTES # (AUTO) 0.7 10^3/uL (1.5-3.5); LYMPHOCYTES % (AUTO) 19.4 %; MEAN CORPUSCULAR HEMOGLOBIN 33.5 pg (27.0-31.0); MEAN CORPUSCULAR HGB CONC 34.1 g/dL (32.0-36.0); MEAN CORPUSCULAR VOLUME 98.1 fL (80.0-94.0); MEAN PLATELET VOLUME 8.7 fL (7.4-11.4); MONOCYTES # (AUTO) 0.5 10^3/uL (0.0-1.0); MONOCYTES % (AUTO) 13.1 %; NEUTROPHILS # (AUTO) 2.3 10^3/uL (1.5-6.6); PLT - PLATELET COUNT 71 10^3/uL (130-450); RED BLOOD COUNT 3.91 10^6/uL (4.70-6.10); RED CELL DISTRIBUTION WIDTH 14.4 % (12.0-15.0); WHITE BLOOD COUNT 3.7 x10^3/uL (4.8-10.8)
[2017-09-01 15:01] LABS: ALBUMIN 3.1 g/dL (3.2-5.5); ALBUMIN/GLOBULIN RATIO 0.8 (1.0-2.2); ALKALINE PHOSPHATASE 151 IU/L (42-121); ALT ALANINE AMINOTRANSFERASE 30 IU/L (10-60); AST ASPARTATE AMINOTRANSFERASE 57 IU/L (10-42); BILIRUBIN,TOTAL 2.4 mg/dL (0.2-1.0); BUN - BLOOD UREA NITROGEN 8 mg/dL (6-20); CALCIUM 8.4 mg/dL (8.5-10.3); CARBON DIOXIDE - CO2 25 mmol/L (21-32); CHLORIDE 105 mmol/L (101-111); CK- CREATINE KINASE 67 IU/L (22-269); CREATININE 0.6 mg/dL (0.6-1.2); GFR - MDRD 135 (>89); GLUCOSE 100 mg/dL (70-100); LIPASE 42 U/L (22-51); SODIUM 138 mmol/L (135-145)
[2017-09-01 15:06] LABS: TROPONIN I < 0.04 ng/mL (<0.49)
[2017-09-01] MEDS ORDERED: cefTRIAXone 1 GM in SODIUM CHLORIDE 0.9% MINIBAG 100 ML IV STA (15:06)
[2017-09-01 15:08] LABS: CREATINE KINASE MB 2.1 ng/mL (0.6-6.3)
[2017-09-01 15:49] LABS: INR 1.4 (0.8-1.2); PT - PROTHROMBIN TIME 15.2 secs (9.9-12.6)
[2017-09-01 18:26] VITALS: BP 149/93
== END 2017-09-01 18:35 | disposition home or self-care (01) ==
LOC: ED 09:41
DX: S70.02XA Contusion of left hip, initial encounter (principal); S80.12XA Contusion of left lower leg, initial encounter; L03.116 Cellulitis of left lower limb; W01.0XXA Fall on same level from slipping, tripping and stumbling without subsequent striking against object, initial encounter; Y92.009 Unspecified place in unspecified non-institutional (private) residence as the place of occurrence of the external cause; M79.7 Fibromyalgia; G35 Multiple sclerosis; F10.20 Alcohol dependence, uncomplicated; K21.9 Gastro-esophageal reflux disease without esophagitis; Z86.010 Personal history of colon polyps; M19.90 Unspecified osteoarthritis, unspecified site; F17.200 Nicotine dependence, unspecified, uncomplicated
CPT/HCPCS: 36415; 73552; 73590; 80053; 80320; 82550; 82553; 83605; 83690; 84484; 85025; 85610; 87040; 96365; 96366; 96368; 96375; 99283; 99284; J3411

== ENCOUNTER 2017-10-18 16:16 | Outpatient (CLI) | payer OTHER | END 2017-10-18 16:17 | disposition critical access hospital (66) | LOC: EMS 16:16 | PROVIDERS: ATTEND Surgery | DX: K92.0 Hematemesis (principal); K92.1 Melena | CPT/HCPCS: A0425; A0427 ==

== ENCOUNTER 2017-10-18 16:37 | Emergency (ER) | payer OTHER ==
[2017-10-18] MEDS ORDERED: SODIUM CHLORIDE 0.9% 1,000 ML IV ONE ×2 (16:40→16:45)
[2017-10-18] MEDS ORDERED: PANTOPRAZOLE 40 MG VIAL IV STA (16:41)
[2017-10-18 16:46] VITALS: BP 147/93
--- NOTE | 2017-10-18 16:49 | ED Physician Documentation ---
History of Present Illness - Stated complaint Stated Complaint: N/V - Chief complaint Chief Complaint: General - History obtained from History obtained from: Patient, EMS - History of Present Illness Timing: Today Pain level max: 0 Pain level now: 0 Improved by: nothing Worsened by: nothing - Additonal information Additional information: Patient is a 66-year-old male who presents to the emergency department with hematemesis today. This been ongoing for the past several hours. Also having bright red blood per rectum. States he does have a history of colon cancer. Is also a heavy alcoholic. History of thrombocytopenia and elevated INR due to liver disease. States he does not think he has varices or cirrhosis but is unsure and states he has not been scoped for this. Vomited approximately 500 mL 's of clots and bright red blood in the ambulance on the way to the emergency department. Review of Systems Ten Systems: 10 systems reviewed and negative Constitutional: denies: Fever, Chills Ears: denies: Ear pain Nose: denies: Rhinorrhea / runny nose, Congestion Throat: denies: Oral lesions / sores Cardiac: denies: Chest pain / pressure Respiratory: denies: Cough GI: reports: Vomiting, Hematemesis, Bloody / black stool (bright red) Skin: denies: Rash Musculoskeletal: denies: Neck pain, Back pain Neurologic: denies: Focal weakness, Numbness, Headache PD PAST MEDICAL HISTORY - Past Medical History Cardiovascular: None Respiratory: None Neuro: Multiple sclerosis Endocrine/Autoimmune: None GI: GERD, Colon polyps : None HEENT: None Psych: Depression, Post traumatic stress disorder Musculoskeletal: Osteoarthritis, Fibromyalgia Derm: None - Past Surgical History Past Surgical History: Yes General: Splenectomy Ortho: Knee replacement, Other - Present Medications Home Medications: Ambulatory Orders Medication Instructions Recorded Confirmed raNITIdine [Zantac] 150 mg PO DAILY 01/30/17 02/07/17 oxyCODONE [Roxicodone] 5 mg PO Q4-6H PRN #10 tablet 02/07/17 Omeprazole [PriLOSEC] 20 mg PO DAILY #14 capsule 08/17/17 Amox/Clav 875/125 [Augmentin] 1 each PO Q12H #14 tablet 09/01/17 - Allergies Allergies/Adverse Reactions: Allergies Allergy/AdvReac Type Severity Reaction Status Date / Time ibuprofen [From Motrin] AdvReac Mild Nausea Verified 09/01/17 09:51 acetaminophen [From Tylenol] AdvReac Unknown Verified 09/01/17 09:51 NSAIDS (Non-Steroidal AdvReac Nausea Verified 09/01/17 09:51 Anti-Inflamma - Social History Does the pt smoke?: Yes Smoking Status: Current every day smoker Does the pt drink ETOH?: Yes Does the pt have substance abuse?: No - Immunizations Immunizations are current?: No Immunizations: TDAP >10years/unknown - POLST Patient has POLST: No POLST Status: Full Code PD ED PE NORMAL - Vitals Vital signs reviewed: Yes - General General: Alert and oriented X 3, No acute distress - HEENT HEENT: Moist mucous membranes, Other (bright red blood over the mouth and chest with clots. ) - Neck Neck: Supple, no meningeal sign - Cardiac Cardiac: RRR, Strong equal pulses - Respiratory Respiratory: No respiratory distress, Clear bilaterally - Abdomen Abdomen: Soft, Other (distended, firm.) - Back Back: No spinal TTP - Derm Derm: Warm and dry, No rash - Extremities Extremities: Other (2+ BLE edema) - Neuro Neuro: Alert and oriented X 3 - Psych Psych: Normal mood, Normal affect Results - Vitals Vitals: Vital Signs - 24 hr 10/18/17 16:40 Temperature 36.8 C Heart Rate 117 H Respiratory 20 Rate Blood Pressure 147/93 H O2 Saturation 96 Oxygen O2 Source Room air - Labs Labs: Laboratory Tests 10/18/17 10/18/17 10/18/17 16:47 16:47 16:47 WBC 6.4 RBC 3.31 L Hgb 10.7 L Hct 32.4 L MCV 97.9 H MCH 32.2 H MCHC 32.9 RDW 14.0 Plt Count 82 L MPV 8.0 Neut # 4.1 Lymph # 1.3 L [place] # 0.9 Eos # 0.1 Baso # 0.1 Absolute Nucleated RBC 0.00 Nucleated RBC % 0.1 PT 15.7 H INR 1.4 H APTT 29.2 Sodium 143 Potassium 3.9 Chloride 109 Carbon Dioxide 25 Anion Gap 9.0 BUN 13 Creatinine 0.8 Estimated GFR (MDRD) 97 Glucose 122 H Calcium 7.9 L Total Bilirubin 1.2 H AST 74 H ALT 32 Alkaline Phosphatase 105 Total Protein 6.2 L Albumin 2.5 L Globulin 3.7 Albumin/Globulin Ratio 0.7 L Lipase 59 H Ethyl Alcohol 153.5 Blood Type Antibody Screen Crossmatch IS Only 10/18/17 16:47 WBC RBC Hgb Hct MCV MCH MCHC RDW Plt Count MPV Neut # Lymph # [place] # Eos # Baso # Absolute Nucleated RBC Nucleated RBC % PT INR APTT Sodium Potassium Chloride Carbon Dioxide Anion Gap BUN Creatinine Estimated GFR (MDRD) Glucose Calcium Total Bilirubin AST ALT Alkaline Phosphatase Total Protein Albumin Globulin Albumin/Globulin Ratio Lipase Ethyl Alcohol Blood Type B POSITIVE Antibody Screen NEGATIVE Crossmatch IS Only See Detail PD MEDICAL DECISION MAKING - ED course Complexity details: reviewed old records (prior ED visits and hospitalizations for endoscopy/colonoscopy.), reviewed results, re-evaluated patient, considered differential, d/w patient, d/w quality compliance consultant ED course: Patient is a 66-year-old alcoholic male who presents to the emergency department with significant hematemesis and bright red blood per rectum. Appears to have a significant upper GI bleed. Unclear if he has a history of varices or not, but given his heavy alcohol use, elevated INR, chronic liver disease and thrombocytopenia it is felt to be likely. He was given Rocephin, protonix, octreotide and IV fluids. 2 large-bore IVs were started. Also given tranexamic acid. Patient will need transfer to a higher level of care is we are unable to care for varices in this hospital. [facility] contacted at [phone]. Hgb is down to 10.7, baseline approx 14 from 1 month ago. pRBC will be transfused when ready. D/w Dr. George (mortar mixer operator at [facility]) who graciously accepts in transfer at [phone]. This document was made in part using voice recognition software. While efforts are made to proofread this document, sound alike and grammatical errors may occur. - Critical Care Time(min): 40 Time Includes: Direct patient care, Review records, Reassess patient, Document care, Coordinate care, See progress note Data interpretation: See progress note Procedures included in critical care time: See progress note Procedures excluded from critical care time: See progress note Departure - Departure Disposition: 02 Transfer Acute Care Hosp Clinical Impression: Upper GI bleeding Condition: Serious Discharge Date/Time: 10/18/17 18:10
[2017-10-18] MEDS ORDERED: cefTRIAXone 1 GM VIAL IVP STA (16:50)
[2017-10-18] MEDS ORDERED: TRANEXAMIC ACID 1,000 MG in SODIUM CHLORIDE 0.9% 100ML 100 ML IV STA (16:51)
[2017-10-18] MEDS ORDERED: OCTREOTIDE 100 MCG/ML VIAL IVP STA (16:53)
[2017-10-18] MEDS ORDERED: OCTREOTIDE 500 MCG in SODIUM CHLORIDE 0.9% 100ML 95 ML IV STA (16:53)
[2017-10-18 16:57] LABS: BASOPHILS # (AUTO) 0.1 10^3/uL (0.0-0.1); EOSINOPHILS # (AUTO) 0.1 10^3/uL (0.0-0.7); EOSINOPHILS % (AUTO) 1.6 %; HGB - HEMOGLOBIN 10.7 g/dL (14.0-18.0); LYMPHOCYTES # (AUTO) 1.3 10^3/uL (1.5-3.5); LYMPHOCYTES % (AUTO) 20.4 %; MEAN CORPUSCULAR HEMOGLOBIN 32.2 pg (27.0-31.0); MEAN CORPUSCULAR HGB CONC 32.9 g/dL (32.0-36.0); MEAN CORPUSCULAR VOLUME 97.9 fL (80.0-94.0); MONOCYTES # (AUTO) 0.9 10^3/uL (0.0-1.0); MONOCYTES % (AUTO) 13.2 %; NEUTROPHILS # (AUTO) 4.1 10^3/uL (1.5-6.6); NEUTROPHILS % (AUTO) 63.8 %; PLT - PLATELET COUNT 82 10^3/uL (130-450); RED BLOOD COUNT 3.31 10^6/uL (4.70-6.10); WHITE BLOOD COUNT 6.4 x10^3/uL (4.8-10.8)
[2017-10-18] MEDS ORDERED: OCTREOTIDE 500 MCG in SODIUM CHLORIDE 0.9% 100ML 99 ML IV STA (16:57)
[2017-10-18 17:02] LABS: INR 1.4 (0.8-1.2); PT - PROTHROMBIN TIME 15.7 secs (9.9-12.6)
[2017-10-18 17:12] LABS: ALBUMIN 2.5 g/dL (3.2-5.5); ALBUMIN/GLOBULIN RATIO 0.7 (1.0-2.2); BILIRUBIN,TOTAL 1.2 mg/dL (0.2-1.0); CALCIUM 7.9 mg/dL (8.5-10.3); CREATININE 0.8 mg/dL (0.6-1.2); TOTAL PROTEIN 6.2 g/dL (6.7-8.2)
[2017-10-18] MEDS ORDERED: ONDANSETRON 4 MG/2 ML VIAL IVP STA (17:52)
== END 2017-10-18 18:10 | disposition short-term general hospital (02) ==
LOC: EDUNIT# → ED 16:37
DX: K92.2 Gastrointestinal hemorrhage, unspecified (principal); G35 Multiple sclerosis; K21.9 Gastro-esophageal reflux disease without esophagitis; M79.7 Fibromyalgia; M19.90 Unspecified osteoarthritis, unspecified site; Z86.010 Personal history of colon polyps; F17.200 Nicotine dependence, unspecified, uncomplicated
CPT/HCPCS: 36415; 80053; 80320; 83690; 85025; 85610; 85730; 86850; 86900; 86901; 86920; 96361; 96374; 96375; 99283; 99291; J2354; 99284

== ENCOUNTER 2017-11-13 13:15 | Outpatient (CLI) | payer OTHER | END 2017-11-13 13:16 | disposition home or self-care (01) | LOC: LAB.R 13:15 | PROVIDERS: ATTEND Emergency Medicine Emergency Medical Services | DX: L08.9 Local infection of the skin and subcutaneous tissue, unspecified (principal) | CPT/HCPCS: 87070; 87077; 87181; 87205 ==

== ENCOUNTER 2017-11-16 14:57 | Outpatient (CLI) | payer OTHER | END 2017-11-16 14:58 | disposition critical access hospital (66) | LOC: EMS 14:57 | PROVIDERS: ATTEND Surgery | DX: R50.9 Fever, unspecified (principal); R53.1 Weakness | CPT/HCPCS: A0425; A0429 ==

== ENCOUNTER 2017-11-16 15:22 | Emergency (ER) | payer OTHER ==
--- NOTE | 2017-11-16 15:31 | ED Physician Documentation ---
History of Present Illness - Stated complaint Stated Complaint: FEVER - Chief complaint Chief Complaint: Fever - History obtained from History obtained from: Patient, EMS - History of Present Illness Timing: Today (66-year-old gentleman with multiple health issues including cirrhosis and recent ICU stay for upper GI bleed with esophageal varices banding presents with left lower extremity cellulitis and a fever that he thinks that started today. He has been out of the hospital for about 3 days, he was hospitalized in [place]. Home health sent him in today because of the fever which was 100.4 Fahrenheit at home. He has a lot of pain from the left leg and it has been red and weepy, although he cannot really put a timeframe on how long it has been like that. He had a wound culture done in the last few days which grew both MSSA and Acinetobacter.) Review of Systems Ten Systems: 10 systems reviewed and negative Constitutional: reports: Fever, Chills, Fatigue Cardiac: denies: Chest pain / pressure, Palpitations Respiratory: reports: Cough. denies: Dyspnea GI: denies: Abdominal Pain, Nausea, Vomiting, Bloody / black stool PD PAST MEDICAL HISTORY - Past Medical History Past Medical History: Yes Cardiovascular: Congestive heart failure Respiratory: None Endocrine/Autoimmune: None GI: GERD, Esophageal varices, GI bleed, Colon polyps, Cirrhosis : None HEENT: None Psych: Depression, Post traumatic stress disorder Musculoskeletal: Osteoarthritis, Fibromyalgia Derm: None - Past Surgical History Past Surgical History: Yes General: Splenectomy Ortho: Knee replacement, Other - Present Medications Home Medications: Ambulatory Orders Medication Instructions Recorded Confirmed raNITIdine [Zantac] 150 mg PO DAILY 01/30/17 02/07/17 oxyCODONE [Roxicodone] 5 mg PO Q4-6H PRN #10 tablet 02/07/17 Bisacodyl Supp [Dulcolax Supp] 10 mg [place] 11/16/17 Cholecalciferol (Vitamin D3) 400 unit PO 11/16/17 [Vitamin D3] Ciprofloxacin HCl [Cipro] 500 mg PO BID #14 tablet 11/16/17 Lactulose [Constulose] 10 gm PO 11/16/17 Lidocaine Patch 5% [Lidoderm Patch] 1 each TOP DAILY 11/16/17 11/16/17 Multivitamin/Iron/Folic Acid 11/16/17 [Multivitamin with Iron Tablet] Nystatin 100,000 unit PO 11/16/17 Pantoprazole [Protonix] 40 mg PO 11/16/17 Polyethylene Glycol 3350 1,700 gm PO 11/16/17 [Laxaclear] Senna [Senokot] 8.6 mg PO ONCE 11/16/17 11/16/17 Tamsulosin HCl [Flomax] 0.4 mg PO 11/16/17 11/16/17 oxyCODONE [Roxicodone] 5 mg PO Q4-6H #10 tablet 11/16/17 - Allergies Allergies/Adverse Reactions: Allergies Allergy/AdvReac Type Severity Reaction Status Date / Time ibuprofen [From Motrin] AdvReac Mild Nausea Verified 11/16/17 15:28 acetaminophen [From Tylenol] AdvReac Unknown Verified 11/16/17 15:28 NSAIDS (Non-Steroidal AdvReac Nausea Verified 11/16/17 15:28 Anti-Inflamma - Social History Does the pt smoke?: Yes Smoking Status: Current every day smoker Does the pt drink ETOH?: Yes Does the pt have substance abuse?: No - Family History Family history: reports: Non contributory - Immunizations Immunizations are current?: No Immunizations: TDAP >10years/unknown - POLST Patient has POLST: No POLST Status: Full Code PD ED PE NORMAL - Vitals Vital signs reviewed: Yes - General General: Alert and oriented X 3, No acute distress - HEENT HEENT: PERRL, EOMI - Neck Neck: Supple, no meningeal sign, No bony TTP - Cardiac Cardiac: RRR, No murmur - Respiratory Respiratory: No respiratory distress, Clear bilaterally - Abdomen Abdomen: Normal bowel sounds, Soft, Non tender - Derm Derm: Normal color, Warm and dry - Extremities Extremities: Other (Significant cellulitis of the left leg much more than the right anteriorly with weeping and pressure ulcers, probably grade 2 over both patella.) - Neuro Neuro: Alert and oriented X 3 Eye Opening: Spontaneous - Psych Psych: Normal mood, Normal affect Results - Vitals Vitals: Vital Signs - 24 hr 11/16/17 15:21 Temperature 37.6 C H Heart Rate 91 Respiratory 20 Rate Blood Pressure 153/87 H O2 Saturation 98 Oxygen O2 Source Room air - Labs Labs: Laboratory Tests 11/16/17 11/16/17 11/16/17 15:40 15:40 15:40 WBC 3.3 L RBC 3.14 L Hgb 9.7 L Hct 29.1 L MCV 92.7 MCH 30.8 MCHC 33.2 RDW 15.2 H Plt Count 55 L MPV 7.8 Neut # (Auto) 2.2 Lymph # (Auto) 0.6 L [place] # (Auto) 0.4 Eos # (Auto) 0.0 Baso # (Auto) 0.0 Absolute Nucleated RBC 0.01 Nucleated RBC % 0.2 PT 16.2 H INR 1.5 H Sodium 140 Potassium 3.5 Chloride 108 Carbon Dioxide 25 Anion Gap 7.0 BUN 8 Creatinine 0.8 Estimated GFR (MDRD) 97 Glucose 106 H Lactic Acid Calcium 8.1 L Total Bilirubin 1.3 H AST 56 H ALT 28 Alkaline Phosphatase 125 H Total Protein 7.1 Albumin 2.6 L Globulin 4.5 H Albumin/Globulin Ratio 0.6 L Lipase 63 H Ethyl Alcohol 24.1 11/16/17 15:40 WBC RBC Hgb Hct MCV MCH MCHC RDW Plt Count MPV Neut # (Auto) Lymph # (Auto) [place] # (Auto) Eos # (Auto) Baso # (Auto) Absolute Nucleated RBC Nucleated RBC % PT INR Sodium Potassium Chloride Carbon Dioxide Anion Gap BUN Creatinine Estimated GFR (MDRD) Glucose Lactic Acid 1.8 Calcium Total Bilirubin AST ALT Alkaline Phosphatase Total Protein Albumin Globulin Albumin/Globulin Ratio Lipase Ethyl Alcohol PD MEDICAL DECISION MAKING - ED course ED course: 66-year-old gentleman with cirrhosis presents with cellulitis of the left leg with cultures already done showing MSSA and Acinetobacter, he was administered IV Cipro here which per the sensitivities should cover both. His labs are reassuring, basically at his baseline. He says he has not been drinking but there is a small amount of alcohol in his system; he said he felt well enough to go home. - Sepsis Event Vital Signs: Vital Signs - 24 hr 11/16/17 15:21 Temperature 37.6 C H Heart Rate 91 Respiratory 20 Rate Blood Pressure 153/87 H O2 Saturation 98 Oxygen O2 Source Room air Departure - Departure Disposition: 01 Home, Self Care Clinical Impression: Cirrhosis Qualifiers: Hepatic cirrhosis type: alcoholic cirrhosis Ascites presence: without ascites Qualified Code(s): K70.30 - Alcoholic cirrhosis of liver without ascites Cellulitis Qualifiers: Site of cellulitis: extremity Site of cellulitis of extremity: lower extremity Laterality: left Qualified Code(s): L03.116 - Cellulitis of left lower limb Condition: Good Record reviewed to determine appropriate education?: Yes Instructions: Cellulitis Dc Prescriptions: Ciprofloxacin HCl [Cipro] 500 mg PO BID #14 tablet oxyCODONE [Roxicodone] 5 mg PO Q4-6H #10 tablet Comments: Have the home health nurses look at it daily and return if worsening. Follow- up with your doctor on Monday. Your blood pressure was elevated today on check into the emergency department. This does not mean that you have hypertension, it is a common phenomenon to come to the emergency department and have elevated blood pressure. I recommend that you see your primary care physician within the week to have it rechecked when you are feeling better.
[2017-11-16] MEDS ORDERED: CIPROFLOXACIN 400 MG/200 ML 200 ML IV ONE (15:45)
[2017-11-16 15:51] LABS: BASOPHILS % (AUTO) 0.5 %; EOSINOPHILS % (AUTO) 1.2 %; HGB - HEMOGLOBIN 9.7 g/dL (14.0-18.0); LYMPHOCYTES # (AUTO) 0.6 10^3/uL (1.5-3.5); LYMPHOCYTES % (AUTO) 19.8 %; MEAN CORPUSCULAR HEMOGLOBIN 30.8 pg (27.0-31.0); MEAN CORPUSCULAR HGB CONC 33.2 g/dL (32.0-36.0); MEAN CORPUSCULAR VOLUME 92.7 fL (80.0-94.0); MEAN PLATELET VOLUME 7.8 fL (7.4-11.4); MONOCYTES # (AUTO) 0.4 10^3/uL (0.0-1.0); NEUTROPHILS # (AUTO) 2.2 10^3/uL (1.5-6.6); NEUTROPHILS % (AUTO) 66.5 %; PLT - PLATELET COUNT 55 10^3/uL (130-450); RED BLOOD COUNT 3.14 10^6/uL (4.70-6.10); RED CELL DISTRIBUTION WIDTH 15.2 % (12.0-15.0); WHITE BLOOD COUNT 3.3 x10^3/uL (4.8-10.8)
[2017-11-16 16:00] LABS: INR 1.5 (0.8-1.2); PT - PROTHROMBIN TIME 16.2 secs (9.9-12.6)
[2017-11-16 16:05] LABS: ALBUMIN 2.6 g/dL (3.2-5.5); ALBUMIN/GLOBULIN RATIO 0.6 (1.0-2.2); BILIRUBIN,TOTAL 1.3 mg/dL (0.2-1.0); CALCIUM 8.1 mg/dL (8.5-10.3); CREATININE 0.8 mg/dL (0.6-1.2); TOTAL PROTEIN 7.1 g/dL (6.7-8.2)
[2017-11-16] MEDS ORDERED: oxyCODONE 5 MG TABLET PO STA (16:05)
--- NOTE | 2017-11-16 16:53 | Ultrasound Report ---
EXAM: BILATERAL LOWER EXTREMITY VENOUS ULTRASOUND EXAM DATE: 11/16/2017 04:41 PM. CLINICAL HISTORY: Leg pain, recent icu stay. COMPARISON: None. TECHNIQUE: Real-time sonographic vascular imaging was performed by the rolling mill plugger through the lower extremities utilizing both color-flow and Doppler spectral analysis. Multiple sales representative health insurance static i mages were saved for review. FINDINGS: Right: Common Femoral Vein (CFV): Normal. CFV-GSV Junction: Normal. Profunda Femoral Vein (PFV): Normal. Femoral Vein (FV) Prox: Normal. Femoral Vein (FV) Mid: Normal. Femoral Vein (FV) Dist: Normal. Popliteal Vein: Normal. Left: Common Femoral Vein (CFV): Normal. CFV-GSV Junction: Normal. Profunda Femoral Vein (PFV): Normal. Femoral Vein (FV) Prox: Normal. Femoral Vein (FV) Mid: Normal. Femoral Vein (FV) Dist: Normal. Popliteal Vein: Normal. Bilateral deep calf veins not seen due to edema. IMPRESSION: No evidence for deep venous thrombosis bilaterally. Bilateral deep calf veins not seen due to edema. [facility] Referring Provider Line: [phone] SITE ID: [id number]
--- NOTE | 2017-11-16 16:53 | Ultrasound Preliminary Report ---
Exam: US DUPLEX EXT VEINS BILATERAL IMPRESSION: No evidence for deep venous thrombosis bilaterally. Bilateral deep calf veins not seen due to edema. [facility] SITE ID: [id number]
[2017-11-16 17:08] VITALS: BP 148/90
== END 2017-11-16 19:02 | disposition home or self-care (01) ==
LOC: ED 15:25
DX: K70.30 Alcoholic cirrhosis of liver without ascites (principal); L03.116 Cellulitis of left lower limb; R03.0 Elevated blood-pressure reading, without diagnosis of hypertension; F17.200 Nicotine dependence, unspecified, uncomplicated; Z90.81 Acquired absence of spleen; Z96.659 Presence of unspecified artificial knee joint
CPT/HCPCS: 36415; 80053; 80320; 83605; 83690; 85025; 85610; 87040; 93970; 96365; 99283; 99284; A9270

== ENCOUNTER 2017-12-20 20:29 | Outpatient (CLI) | payer OTHER | END 2017-12-20 20:30 | disposition critical access hospital (66) | LOC: EMS 20:29 | PROVIDERS: ATTEND Surgery | DX: R53.1 Weakness (principal) | CPT/HCPCS: A0425; A0429 ==

== ENCOUNTER 2017-12-20 20:48 | Emergency (ER) | payer OTHER ==
[2017-12-20 21:54] LABS: BASOPHILS % (AUTO) 0.8 %; EOSINOPHILS # (AUTO) 0.1 10^3/uL (0.0-0.7); EOSINOPHILS % (AUTO) 1.7 %; LYMPHOCYTES # (AUTO) 1.3 10^3/uL (1.5-3.5); LYMPHOCYTES % (AUTO) 30.8 %; MEAN CORPUSCULAR HEMOGLOBIN 28.8 pg (27.0-31.0); MEAN CORPUSCULAR HGB CONC 32.7 g/dL (32.0-36.0); MEAN CORPUSCULAR VOLUME 88.2 fL (80.0-94.0); MEAN PLATELET VOLUME 7.5 fL (7.4-11.4); MONOCYTES # (AUTO) 0.8 10^3/uL (0.0-1.0); MONOCYTES % (AUTO) 18.2 %; NEUTROPHILS # (AUTO) 2.1 10^3/uL (1.5-6.6); NEUTROPHILS % (AUTO) 48.5 %; PLT - PLATELET COUNT 54 10^3/uL (130-450); RED BLOOD COUNT 3.47 10^6/uL (4.70-6.10); RED CELL DISTRIBUTION WIDTH 17.8 % (12.0-15.0); WHITE BLOOD COUNT 4.3 x10^3/uL (4.8-10.8)
[2017-12-20 22:03] LABS: ALBUMIN 2.7 g/dL (3.2-5.5); ALBUMIN/GLOBULIN RATIO 0.5 (1.0-2.2); BILIRUBIN,TOTAL 1.3 mg/dL (0.2-1.0); CALCIUM 8.1 mg/dL (8.5-10.3); CREATININE 0.8 mg/dL (0.6-1.2); TOTAL PROTEIN 7.7 g/dL (6.7-8.2)
--- NOTE | 2017-12-20 22:47 | ED Physician Documentation ---
History of Present Illness - Stated complaint Stated Complaint: WEAKNESS - Chief complaint Chief Complaint: Neuro - History obtained from History obtained from: Patient, EMS - History of Present Illness Timing: Unknown (despite repeated attempts to ascertain timing information, patient cannot tell me how long he has had symptoms) Improved by: rest Worsened by: ambulating - Treatment prior to arrival Treatment prior to arrival: BIBA. Patient is a vague historian and repeatedly tells me of chronic issues, such as osteoarthritis, gout, MS, bladder incontinence. His chief complaint is "I can't walk"; when why he can't walk, such as pain or weakness, he replies "I can't function". He is drowsy and falls asleep several times during H+P. Review of Systems Constitutional: reports: Fatigue. denies: Fever, Chills, Sweats Eyes: reports: Reviewed and negative Cardiac: reports: Pedal edema. denies: Chest pain / pressure, Palpitations Respiratory: denies: Dyspnea, Cough GI: denies: Abdominal Pain, Nausea, Vomiting, Constipation, Diarrhea, Hematemesis, Bloody / black stool : denies: Dysuria, Frequency Musculoskeletal: reports: Back pain Neurologic: reports: Generalized weakness. denies: Focal weakness, Numbness PD PAST MEDICAL HISTORY - Past Medical History Past Medical History: Yes Cardiovascular: Congestive heart failure Respiratory: Asthma, COPD Endocrine/Autoimmune: None GI: GERD, Esophageal varices, GI bleed, Colon polyps, Cirrhosis : None HEENT: None Psych: Depression, Post traumatic stress disorder Musculoskeletal: Osteoarthritis, Fibromyalgia, Gout Derm: Other drug resistant infections, Other - Past Surgical History Past Surgical History: Yes General: Splenectomy Ortho: Knee replacement, Other - Present Medications Home Medications: Ambulatory Orders Medication Instructions Recorded Confirmed raNITIdine [Zantac] 150 mg PO DAILY 01/30/17 02/07/17 oxyCODONE [Roxicodone] 5 mg PO Q4-6H PRN #10 tablet 02/07/17 Bisacodyl Supp [Dulcolax Supp] 10 mg [place] 11/16/17 Cholecalciferol (Vitamin D3) 400 unit PO 11/16/17 [Vitamin D3] Ciprofloxacin HCl [Cipro] 500 mg PO BID #14 tablet 11/16/17 Lactulose [Constulose] 10 gm PO 11/16/17 Lidocaine Patch 5% [Lidoderm Patch] 1 each TOP DAILY 11/16/17 11/16/17 Multivitamin/Iron/Folic Acid 11/16/17 [Multivitamin with Iron Tablet] Nystatin 100,000 unit PO 11/16/17 Pantoprazole [Protonix] 40 mg PO 11/16/17 Polyethylene Glycol 3350 1,700 gm PO 11/16/17 [Laxaclear] Senna [Senokot] 8.6 mg PO ONCE 11/16/17 11/16/17 Tamsulosin HCl [Flomax] 0.4 mg PO 11/16/17 11/16/17 oxyCODONE [Roxicodone] 5 mg PO Q4-6H #10 tablet 11/16/17 - Allergies Allergies/Adverse Reactions: Allergies Allergy/AdvReac Type Severity Reaction Status Date / Time ibuprofen [From Motrin] AdvReac Mild Nausea Verified 12/20/17 20:55 acetaminophen [From Tylenol] AdvReac Unknown Verified 12/20/17 20:55 NSAIDS (Non-Steroidal AdvReac Nausea Verified 12/20/17 20:55 Anti-Inflamma - Social History Does the pt smoke?: Yes Smoking Status: Current every day smoker Does the pt drink ETOH?: Yes Does the pt have substance abuse?: No - Immunizations Immunizations are current?: No Immunizations: TDAP >10years/unknown - POLST Patient has POLST: No POLST Status: Full Code PD ED PE NORMAL - Vitals Vital signs reviewed: Yes - General General: Alert and oriented X 3, No acute distress, Well developed/nourished - HEENT HEENT: PERRL, EOMI, Ears normal, Other (bruising noted right temporal scalp with mild tenderness but no bony step-off or crepitus) - Neck Neck: No bony TTP - Cardiac Cardiac: RRR, No murmur - Respiratory Respiratory: No respiratory distress, Clear bilaterally - Abdomen Abdomen: Soft, Non tender - Back Back: No spinal TTP - Derm Derm: Normal color, Warm and dry - Extremities Extremities: No tenderness to palpate - Neuro Neuro: Alert and oriented X 3, 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 2-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, No motor deficit, No sensory deficit Eye Opening: To Voice Motor: Obeys Commands Verbal: Oriented GCS Score: 14 PD ED PE EXPANDED - Extremities Extremities: Pedal edema bilateral, Other (bilateral anterior (pre-tibial) venous stasis changes (hyperpigmentation s/o chronic process)) Results - Vitals Vitals: Oxygen O2 Source Room air - Labs Labs: Laboratory Tests 12/20/17 12/20/17 12/21/17 21:50 21:50 01:36 WBC 4.3 L RBC 3.47 L Hgb 10.0 L Hct 30.6 L MCV 88.2 MCH 28.8 MCHC 32.7 RDW 17.8 H Plt Count 54 L MPV 7.5 Neut # (Auto) 2.1 Lymph # (Auto) 1.3 L [place] # (Auto) 0.8 Eos # (Auto) 0.1 Baso # (Auto) 0.0 Absolute Nucleated RBC 0.00 Nucleated RBC % 0.1 Sodium 142 Potassium 3.7 Chloride 107 Carbon Dioxide 28 Anion Gap 7.0 BUN 7 Creatinine 0.8 Estimated GFR (MDRD) 96 Glucose 124 H Calcium 8.1 L Total Bilirubin 1.3 H AST 105 H ALT 37 Alkaline Phosphatase 149 H Total Protein 7.7 Albumin 2.7 L Globulin 5.0 H Albumin/Globulin Ratio 0.5 L Lipase 120 H Urine Color YELLOW Urine Clarity CLEAR Urine pH 6.0 Ur Specific [place] 1.020 Urine Protein NEGATIVE Urine Glucose (UA) NEGATIVE Urine Ketones NEGATIVE Urine Occult Blood NEGATIVE Urine Nitrite NEGATIVE Urine Bilirubin NEGATIVE Urine Urobilinogen 2 H Ur Leukocyte Esterase NEGATIVE Ur Microscopic Review NOT INDICATED Urine Culture Comments NOT INDICATED - Rads (name of study) CT head Radiology: Prelim report reviewed, See rad report PD MEDICAL DECISION MAKING - ED course Complexity details: reviewed old records, reviewed results, re-evaluated patient , considered differential, d/w patient ED course: presented to ED last month for hematemesis and was transferred at that time. He has no complaints or ROS answers s/o GI bleeding on this presentation. Blood tests and CTH are reassuring. Due to drowsiness, patient was held in ED until the morning. He was significantly more awake, alert, and conversant on reevaluation at approximately 6:30 AM. SW consulted, arranged for services ( wheelchair, walker), and patient then discharged - Sepsis Event Vital Signs: Oxygen O2 Source Room air Departure - Departure Disposition: 01 Home, Self Care Clinical Impression: Weakness Condition: Good Instructions: ED Weakness UKO Follow-Up: [facility] [Provider Group] [facility] [Provider Group] Comments: Follow up with your primary care physician; call to arrange for next available appointment Discharge Date/Time: 12/21/17 10:20
--- NOTE | 2017-12-21 00:20 | CT Report ---
Procedure Date: 12/21/2017 Accession Number: [id number] / [id number] Procedure: CT - Head W/O CPT Code: FULL RESULT: EXAM: CT HEAD EXAM DATE: 12/21/2017 12:02 AM. CLINICAL HISTORY: AMS. COMPARISON: CT axial HEAD W/O 04/20/2016. TECHNIQUE: Multiaxial CT images were obtained from the foramen magnum to the vertex. Reformats: Coronal. IV contrast: None. In accordance with CT protocol optimization, one or more of the following dose reduction techniques were utilized for this exam: automated exposure control, adjustment of mA and/or KV based on patient size, or use of iterative reconstructive technique. FINDINGS: Parenchyma: No intraparenchymal hemorrhage. No evidence of mass, midline shift, or CT findings of infarction. Mckenzie-white differentiation is distinct. There is mild to moderate chronic microvascular changes in the white matter bilaterally. Extraaxial Spaces: Moderate generalized cerebral volume loss appears stable. No subdural or epidural collections identified. Ventricles: Normal. No hydrocephalus. Sinuses and Orbits: The visualized right maxillary sinus is mostly opacified with thickened wick suggesting chronic sinusitis. This appears similar to the prior CT. Remaining sinuses and mastoid air cells are clear. Orbits are symmetric and unremarkable. Bones: No evidence of fracture or calvarial defect. Other: None. IMPRESSION: 1. No acute intracranial abnormality. No significant change compared to 04/20/2016. 2. Generalized cerebral volume loss and chronic microvascular change appears stable. 3. No intracranial mass lesion, mass effect, or hydrocephalus. 4. Chronic right maxillary sinusitis. RADIA
[2017-12-21 01:45] LABS: BILIRUBIN,URINE NEGATIVE (NEGATIVE); GLUCOSE, URINE (UA) NEGATIVE (NEGATIVE); KETONES,URINE (UA) NEGATIVE (NEGATIVE); LEUKOCYTE ESTERASE, URINE NEGATIVE (NEGATIVE); NITRITE,URINE NEGATIVE (NEGATIVE); OCCULT BLOOD,URINE NEGATIVE (NEGATIVE); PROTEIN,URINE NEGATIVE (NEGATIVE); UROBILINOGEN,URINE 2 E.U./dL (NORMAL)
[2017-12-21 01:48] LABS: CLARITY,URINE CLEAR (CLEAR)
[2017-12-21 10:29] VITALS: BP 140/70
== END 2017-12-21 10:20 | disposition home or self-care (01) ==
LOC: EDUNIT# → ED 20:48
DX: R53.1 Weakness (principal); R60.0 Localized edema
CPT/HCPCS: 36415; 70450; 80053; 81001; 81003; 83690; 85025; 87086; 99283; 99285

== ENCOUNTER 2018-03-12 21:23 | Outpatient (CLI) | payer OTHER | END 2018-03-12 21:24 | disposition critical access hospital (66) | LOC: EMS 21:23 | PROVIDERS: ATTEND Surgery | DX: M79.89 Other specified soft tissue disorders (principal); S00.212A Abrasion of left eyelid and periocular area, initial encounter; S80.212A Abrasion, left knee, initial encounter; W05.1XXA Fall from non-moving nonmotorized scooter, initial encounter; Y92.038 Other place in apartment as the place of occurrence of the external cause | CPT/HCPCS: A0425; A0429 ==

== ENCOUNTER 2018-03-12 21:41 | Emergency (ER) | payer OTHER ==
[2018-03-12 22:24] LABS: BASOPHILS % (AUTO) 0.6 %; EOSINOPHILS # (AUTO) 0.1 10^3/uL (0.0-0.7); HGB - HEMOGLOBIN 10.7 g/dL (14.0-18.0); LYMPHOCYTES # (AUTO) 1.3 10^3/uL (1.5-3.5); LYMPHOCYTES % (AUTO) 27.4 %; MEAN CORPUSCULAR HGB CONC 33.1 g/dL (32.0-36.0); MEAN CORPUSCULAR VOLUME 84.8 fL (80.0-94.0); MEAN PLATELET VOLUME 7.7 fL (7.4-11.4); MONOCYTES # (AUTO) 0.5 10^3/uL (0.0-1.0); MONOCYTES % (AUTO) 10.5 %; NEUTROPHILS # (AUTO) 2.7 10^3/uL (1.5-6.6); NEUTROPHILS % (AUTO) 59.5 %; PLT - PLATELET COUNT 86 10^3/uL (130-450); RED BLOOD COUNT 3.81 10^6/uL (4.70-6.10); RED CELL DISTRIBUTION WIDTH 17.8 % (12.0-15.0); WHITE BLOOD COUNT 4.6 x10^3/uL (4.8-10.8)
--- NOTE | 2018-03-12 22:31 | ED Physician Documentation ---
History of Present Illness - Stated complaint Stated Complaint: JOSSUE LEG SWELLING - Chief complaint Chief Complaint: Ext Problem - History obtained from History obtained from: Patient, EMS - History of Present Illness Timing: Today, Chronic - Additonal information Additional information: Patient is a 67 year old male with a history of chronic alcohol abuse, edema and recurrent cellulitis who called ems today for leg swelling. patient states that it is a bit worse than usual. patient also reports falling with a small abrasion on his forehead as well as his left knee. Review of Systems Ten Systems: 10 systems reviewed and negative Cardiac: denies: Chest pain / pressure, Palpitations Respiratory: denies: Cough GI: denies: Nausea, Vomiting Musculoskeletal: reports: Extremity pain, Extremity swelling Neurologic: denies: Generalized weakness, Focal weakness, Numbness Immunocompromised: denies: Immunocompromised PD PAST MEDICAL HISTORY - Past Medical History Cardiovascular: Congestive heart failure Respiratory: Asthma, COPD Endocrine/Autoimmune: None GI: GERD, Esophageal varices, GI bleed, Colon polyps, Cirrhosis : None HEENT: None Psych: Depression, Post traumatic stress disorder Musculoskeletal: Osteoarthritis, Fibromyalgia, Gout Derm: Other drug resistant infections, Other - Past Surgical History Past Surgical History: Yes General: Splenectomy Ortho: Knee replacement, Other - Present Medications Home Medications: Ambulatory Orders Medication Instructions Recorded Confirmed raNITIdine [Zantac] 150 mg PO DAILY 01/30/17 02/07/17 oxyCODONE [Roxicodone] 5 mg PO Q4-6H PRN #10 tablet 02/07/17 Bisacodyl Supp [Dulcolax Supp] 10 mg [place] 11/16/17 Cholecalciferol (Vitamin D3) 400 unit PO 11/16/17 [Vitamin D3] Ciprofloxacin HCl [Cipro] 500 mg PO BID #14 tablet 11/16/17 Lactulose [Constulose] 10 gm PO 11/16/17 Lidocaine Patch 5% [Lidoderm Patch] 1 each TOP DAILY 11/16/17 11/16/17 Multivitamin/Iron/Folic Acid 11/16/17 [Multivitamin with Iron Tablet] Nystatin 100,000 unit PO 11/16/17 Pantoprazole [Protonix] 40 mg PO 11/16/17 Polyethylene Glycol 3350 1,700 gm PO 11/16/17 [Laxaclear] Senna [Senokot] 8.6 mg PO ONCE 11/16/17 11/16/17 Tamsulosin HCl [Flomax] 0.4 mg PO 11/16/17 11/16/17 oxyCODONE [Roxicodone] 5 mg PO Q4-6H #10 tablet 11/16/17 - Allergies Allergies/Adverse Reactions: Allergies Allergy/AdvReac Type Severity Reaction Status Date / Time ibuprofen [From Motrin] AdvReac Mild Nausea Verified 03/12/18 21:51 acetaminophen [From Tylenol] AdvReac Unknown Verified 03/12/18 21:51 NSAIDS (Non-Steroidal AdvReac Nausea Verified 03/12/18 21:51 Anti-Inflamma - Social History Does the pt smoke?: Yes Smoking Status: Current every day smoker Does the pt drink ETOH?: Yes Does the pt have substance abuse?: No - Immunizations Immunizations are current?: No Immunizations: TDAP >10years/unknown - POLST Patient has POLST: No POLST Status: Full Code PD ED PE NORMAL - Vitals Vital signs reviewed: Yes - General General: Alert and oriented X 3 - Neck Neck: No bony TTP - Cardiac Cardiac: RRR - Respiratory Respiratory: No respiratory distress - Neuro Eye Opening: Spontaneous Motor: Obeys Commands Verbal: Oriented GCS Score: 15 PD ED PE EXPANDED - HEENT HEENT Visual: 1 - abrasion - Extremities Extremities: Left knee (small abrasion), Right leg (skin tear), Pedal edema bilateral (plus 4 bilateral lower extremity pitting edema. erythema of bilateral lower extremities ) Results - Vitals Vitals: Vital Signs - 24 hr 03/12/18 21:47 Temperature 35.6 C L Heart Rate 111 H Respiratory 17 Rate Blood Pressure 145/100 H O2 Saturation 95 Oxygen O2 Source Room air - Rads (name of study) ct head Radiology: Final report received (no acute intracranial pathology) left knee Radiology: Final report received (no acute fracture or dislocation) PD MEDICAL DECISION MAKING - ED course Complexity details: reviewed old records, reviewed results, re-evaluated patient, considered differential, d/w patient ED course: Patient was seen and examined at bedside. labs were drawn and imaging was ordered. patient's diagnostics showed no significant abnormalities. patient's conditions were mainly chronic in nature. patient required no inpatient treatment or care and was stable for discharge with outpatient follow up. - Sepsis Event Vital Signs: Vital Signs - 24 hr 03/12/18 21:47 Temperature 35.6 C L Heart Rate 111 H Respiratory 17 Rate Blood Pressure 145/100 H O2 Saturation 95 Oxygen O2 Source Room air Departure - Departure Disposition: Home, Self Care Clinical Impression: Peripheral edema Condition: Good Instructions: ED Edema Legs Bilateral Follow-Up: primary,care provider [Other] Comments: Your diagnostics today were within normal limits. there are no acute abnormalities on your imaging or your blood work. You should continue to work with your doctor on pain control. You should also refrain from drinking so heavily as it is likely contributing to your issues. You may return to the emergency department for new, worsening or uncontrollable symptoms. Discharge Date/Time: 03/12/18 23:46
[2018-03-12 22:38] LABS: ALBUMIN/GLOBULIN RATIO 0.6 (1.0-2.2); BILIRUBIN,TOTAL 0.9 mg/dL (0.2-1.0); CALCIUM 8.1 mg/dL (8.5-10.3); CREATININE 0.6 mg/dL (0.6-1.2); TOTAL PROTEIN 7.8 g/dL (6.7-8.2)
--- NOTE | 2018-03-12 22:44 | XRAY Report ---
Reason: fall etoh, knee abrasion Procedure Date: 03/12/2018 Accession Number: [id number] / [id number] Procedure: XR - Knee 2 View LT CPT Code: FULL RESULT: EXAM: LEFT KNEE RADIOGRAPHY EXAM DATE: 03/12/2018 10:32 PM. CLINICAL HISTORY: Fall etoh, knee abrasion. COMPARISON: 02/07/2017. TECHNIQUE: 2 views. FINDINGS: Bones: No acute fracture. Joints: Probable small amount of chondrocalcinosis in the lateral compartment. Trace effusion. No subluxation. Soft Tissues: Prepatellar soft tissue swelling. IMPRESSION: No acute osseus abnormality. RADIA
[2018-03-12] MEDS ORDERED: BACITRACIN OINT TOP STA (22:49)
--- NOTE | 2018-03-12 23:01 | CT Report ---
Reason: fall, etoh, head abrasion Procedure Date: 03/12/2018 Accession Number: [id number] / [id number] Procedure: CT - Head W/O CPT Code: FULL RESULT: EXAM: CT HEAD EXAM DATE: 03/12/2018 10:37 PM. CLINICAL HISTORY: Fall, etoh, head abrasion. COMPARISON: CT head 12/20/2017. TECHNIQUE: Multiaxial CT images were obtained from the foramen magnum to the vertex. Reformats: Coronal. IV contrast: None. In accordance with CT protocol optimization, one or more of the following dose reduction techniques were utilized for this exam: automated exposure control, adjustment of mA and/or KV based on patient size, or use of iterative reconstructive technique. FINDINGS: Parenchyma: No intraparenchymal hemorrhage. No evidence of mass, midline shift, or CT findings of acute infarction. Mckenzie-white differentiation is distinct. Mild to moderate chronic microvascular ischemic change in the deep white matter appears stable. Extraaxial Spaces: There is moderate generalized cerebral volume loss. This appears stable. No subdural or epidural collections identified. Ventricles: Normal. No hydrocephalus. Sinuses and Orbits: There is moderate mucosal thickening in the right maxillary sinus. This is unchanged. Remaining visualized sinuses and mastoid air cells are unremarkable. Bones: No evidence of fracture or calvarial defect. Other: None. IMPRESSION: 1. No acute intracranial abnormality. No significant change compared to 12/20/2017. 2. Age-related generalized cerebral volume loss and chronic microvascular change are again demonstrated. RADIA
[2018-03-12 23:28] VITALS: BP 147/102
== END 2018-03-12 23:46 | disposition home or self-care (01) ==
LOC: EDUNIT# → ED 21:41
DX: R60.9 Edema, unspecified (principal); S00.81XA Abrasion of other part of head, initial encounter; S80.212A Abrasion, left knee, initial encounter; S81.811A Laceration without foreign body, right lower leg, initial encounter; F10.10 Alcohol abuse, uncomplicated; F17.200 Nicotine dependence, unspecified, uncomplicated; W19.XXXA Unspecified fall, initial encounter
CPT/HCPCS: 36415; 70450; 73560; 80053; 83690; 83880; 85025; 99283; A9270

== ENCOUNTER 2018-06-06 18:17 | Outpatient (CLI) | payer OTHER | END 2018-06-06 18:18 | disposition critical access hospital (66) | LOC: EMS 18:17 | PROVIDERS: ATTEND Surgery | DX: R52 Pain, unspecified (principal) | CPT/HCPCS: A0425; A0429 ==

== ENCOUNTER 2018-08-27 15:08 | Outpatient (CLI) | payer OTHER | END 2018-08-27 15:09 | disposition critical access hospital (66) | LOC: EMS 15:08 | PROVIDERS: ATTEND Surgery | DX: R11.2 Nausea with vomiting, unspecified (principal); K92.1 Melena; R52 Pain, unspecified | CPT/HCPCS: A0425; A0427 ==

== ENCOUNTER 2018-08-27 15:34 | Observation (INO) | payer OTHER ==
[2018-08-27 16:16] LABS: BASOPHILS % (AUTO) 0.6 %; EOSINOPHILS # (AUTO) 0.2 10^3/uL (0.0-0.7); EOSINOPHILS % (AUTO) 3.5 %; HGB - HEMOGLOBIN 11.6 g/dL (14.0-18.0); LYMPHOCYTES # (AUTO) 1.4 10^3/uL (1.5-3.5); LYMPHOCYTES % (AUTO) 30.7 %; MEAN CORPUSCULAR HEMOGLOBIN 28.7 pg (27.0-31.0); MEAN CORPUSCULAR VOLUME 86.8 fL (80.0-94.0); MEAN PLATELET VOLUME 8.1 fL (7.4-11.4); MONOCYTES # (AUTO) 0.5 10^3/uL (0.0-1.0); MONOCYTES % (AUTO) 11.8 %; NEUTROPHILS # (AUTO) 2.5 10^3/uL (1.5-6.6); NEUTROPHILS % (AUTO) 53.4 %; PLT - PLATELET COUNT 80 10^3/uL (130-450); RED BLOOD COUNT 4.03 10^6/uL (4.70-6.10); RED CELL DISTRIBUTION WIDTH 16.1 % (12.0-15.0); WHITE BLOOD COUNT 4.6 x10^3/uL (4.8-10.8)
[2018-08-27 16:21] LABS: INR 1.4 (0.8-1.2); PT - PROTHROMBIN TIME 16.1 secs (9.9-12.6)
[2018-08-27 16:28] LABS: ALBUMIN 3.4 g/dL (3.2-5.5); ALBUMIN/GLOBULIN RATIO 0.8 (1.0-2.2); BILIRUBIN,TOTAL 0.8 mg/dL (0.2-1.0); CALCIUM 8.8 mg/dL (8.5-10.3); CREATININE 0.9 mg/dL (0.6-1.2); TOTAL PROTEIN 7.8 g/dL (6.7-8.2)
[2018-08-27 16:29] LABS: PARTIAL THROMBOPLASTIN TIME 30.6 secs (24.9-33.3)
[2018-08-27 16:47] LABS: BILIRUBIN,URINE NEGATIVE (NEGATIVE); GLUCOSE, URINE (UA) NEGATIVE (NEGATIVE); KETONES,URINE (UA) NEGATIVE (NEGATIVE); LEUKOCYTE ESTERASE, URINE NEGATIVE (NEGATIVE); NITRITE,URINE NEGATIVE (NEGATIVE); OCCULT BLOOD,URINE MODERATE (NEGATIVE); PROTEIN,URINE NEGATIVE (NEGATIVE); UROBILINOGEN,URINE 0.2 (NORMAL) E.U./dL (NORMAL)
[2018-08-27 16:55] LABS: CLARITY,URINE CLEAR (CLEAR)
[2018-08-27 16:56] LABS: RBC,URINE 0-5 /HPF (0-5); SQUAMOUS EPITHELIAL CELL,UR RARE Squamous (<= Few); STARCH,URINE PRESENT
[2018-08-27 16:57] LABS: BACTERIA,URINE Rare /HPF (None Seen)
--- NOTE | 2018-08-27 18:12 | XRAY Report ---
Reason: h/o CHF, leg swelling Procedure Date: 08/27/2018 Accession Number: [id number] / [id number] Procedure: XR - Chest 2 View X-Ray CPT Code: 31272 FULL RESULT: EXAM: CHEST RADIOGRAPHY EXAM DATE: 08/27/2018 05:47 PM. CLINICAL HISTORY: H/o CHF, leg swelling. COMPARISON: CHEST 2 VIEW PA/LAT 01/30/2017 6:46 PM. TECHNIQUE: 2 views. FINDINGS: Lungs/Pleura: No dense consolidation. No large effusion or pneumothorax. No pulmonary edema. Mediastinum: Heart and mediastinal contours are unremarkable. Other: Old left-sided rib fractures. IMPRESSION: No acute radiographic pulmonary abnormalities. RADIA
[2018-08-27] MEDS ORDERED: FUROSEMIDE 40 MG/4 ML VIAL IVP STA (18:22)
--- NOTE | 2018-08-27 19:24 | ED Physician Documentation ---
History of Present Illness - Stated complaint Stated Complaint: GI BLEED/BLOODY STOOL - Chief complaint Chief Complaint: General - Additonal information Additional information: 67-year-old male was brought in by EMS for evaluation of GI bleeding. Per friends the patient has had 4 bloody bowel movements today. The patient appears to be intoxicated and only wants to talk about his chronically swollen legs. The patient's legs are chronically swollen and not any acute changes today. The patient does report that he did have bleeding per rectum today. The patient denies any abdominal discomfort or dizziness. The history is limited secondary to the patient Being a very poor historian. Review of Systems Constitutional: denies: Fever, Chills Eyes: denies: Discharge Ears: denies: Ear pain Nose: denies: Congestion Throat: denies: Sore throat Cardiac: reports: Pedal edema. denies: Chest pain / pressure GI: reports: Bloody / black stool. denies: Abdominal Pain : denies: Dysuria Skin: denies: Rash Musculoskeletal: denies: Neck pain Neurologic: denies: Generalized weakness PD PAST MEDICAL HISTORY - Past Medical History Cardiovascular: Congestive heart failure Respiratory: Asthma, COPD Neuro: None Endocrine/Autoimmune: None GI: GERD, Esophageal varices, GI bleed, Colon polyps, Cirrhosis : None HEENT: None Psych: Depression, Post traumatic stress disorder Musculoskeletal: Osteoarthritis, Fibromyalgia, Gout Derm: Other drug resistant infections, Other - Past Surgical History Past Surgical History: Yes General: Splenectomy Ortho: Knee replacement, Other - Present Medications Home Medications: Ambulatory Orders Medication Instructions Recorded Confirmed raNITIdine [Zantac] 150 mg PO DAILY 01/30/17 02/07/17 oxyCODONE [Roxicodone] 5 mg PO Q4-6H PRN #10 tablet 02/07/17 Bisacodyl Supp [Dulcolax Supp] 10 mg [place] 11/16/17 Cholecalciferol (Vitamin D3) 400 unit PO 11/16/17 [Vitamin D3] Ciprofloxacin HCl [Cipro] 500 mg PO BID #14 tablet 11/16/17 Lactulose [Constulose] 10 gm PO 11/16/17 Lidocaine Patch 5% [Lidoderm Patch] 1 each TOP DAILY 11/16/17 11/16/17 Multivitamin/Iron/Folic Acid 11/16/17 [Multivitamin with Iron Tablet] Nystatin 100,000 unit PO 11/16/17 Pantoprazole [Protonix] 40 mg PO 11/16/17 Polyethylene Glycol 3350 1,700 gm PO 11/16/17 [Laxaclear] Senna [Senokot] 8.6 mg PO ONCE 11/16/17 11/16/17 Tamsulosin HCl [Flomax] 0.4 mg PO 11/16/17 11/16/17 oxyCODONE [Roxicodone] 5 mg PO Q4-6H #10 tablet 11/16/17 - Allergies Allergies/Adverse Reactions: Allergies Allergy/AdvReac Type Severity Reaction Status Date / Time ibuprofen [From Motrin] AdvReac Mild Nausea Verified 08/27/18 15:46 acetaminophen [From Tylenol] AdvReac Unknown Verified 08/27/18 15:46 NSAIDS (Non-Steroidal AdvReac Nausea Verified 08/27/18 15:46 Anti-Inflamma - Social History Does the pt smoke?: Yes Smoking Status: Current every day smoker Does the pt drink ETOH?: Yes Does the pt have substance abuse?: No - Immunizations Immunizations are current?: No Immunizations: TDAP >10years/unknown - POLST Patient has POLST: No POLST Status: Full Code PD ED PE NORMAL - General General: Other (67-year-old chronically ill-appearing male who appears to be in no acute distress) - HEENT HEENT: Atraumatic, PERRL - Cardiac Cardiac: RRR, Strong equal pulses - Respiratory Respiratory: No respiratory distress, Clear bilaterally - Abdomen Abdomen: Soft, Non tender - Male Male : Other (Phlegmonous stool on a glove finger which was heme positive) - Derm Derm: Normal color - Extremities Extremities: Other (Bilateral chronic venous stasis with chronic edema, normal bilateral dorsalis pedis pulses) - Neuro Neuro: Alert and oriented X 3, Normal speech - Psych Psych: Normal mood Results - Vitals Vitals: Vital Signs - 24 hr 08/27/18 08/27/18 08/27/18 15:39 17:18 17:34 Temperature Heart Rate 91 86 89 Respiratory 17 17 Rate Blood Pressure 118/74 125/83 H 125/76 O2 Saturation 95 96 97 08/27/18 08/27/18 19:00 20:44 Temperature 36.8 C Heart Rate 76 81 Respiratory 18 18 Rate Blood Pressure 99/61 129/77 O2 Saturation 95 94 Oxygen O2 Source Room air - EKG (time done) No standard instances Rate: Rate (enter#) (84) Rhythm: NSR Intervals: Normal [place], QRS normal Ischemia: Normal ST segments - Labs Labs: Laboratory Tests 08/27/18 08/27/18 08/27/18 16:09 16:09 16:09 WBC 4.6 L RBC 4.03 L Hgb 11.6 L Hct 35.0 L MCV 86.8 MCH 28.7 MCHC 33.0 RDW 16.1 H Plt Count 80 L MPV 8.1 Neut # (Auto) 2.5 Lymph # (Auto) 1.4 L [place] # (Auto) 0.5 Eos # (Auto) 0.2 Baso # (Auto) 0.0 Absolute Nucleated RBC 0.00 Nucleated RBC % 0.0 PT 16.1 H INR 1.4 H APTT 30.6 Sodium 138 Potassium 3.8 Chloride 105 Carbon Dioxide 22 Anion Gap 11.0 BUN 12 Creatinine 0.9 Estimated GFR (MDRD) 84 L Glucose 109 H Calcium 8.8 Total Bilirubin 0.8 AST 64 H ALT 37 Alkaline Phosphatase 116 Troponin I B-Natriuretic Peptide Total Protein 7.8 Albumin 3.4 Globulin 4.4 H Albumin/Globulin Ratio 0.8 L Lipase 59 H Urine Color Urine Clarity Urine pH Ur Specific [place] Urine Protein Urine Glucose (UA) Urine Ketones Urine Occult Blood Urine Nitrite Urine Bilirubin Urine Urobilinogen Ur Leukocyte Esterase Urine RBC Urine WBC Ur Squamous Epith Cells Urine Bacteria Urine Starch Ur Microscopic Review Urine Culture Comments Blood Type Antibody Screen 08/27/18 08/27/18 08/27/18 16:09 16:30 16:30 WBC RBC Hgb Hct MCV MCH MCHC RDW Plt Count MPV Neut # (Auto) Lymph # (Auto) [place] # (Auto) Eos # (Auto) Baso # (Auto) Absolute Nucleated RBC Nucleated RBC % PT INR APTT Sodium Potassium Chloride Carbon Dioxide Anion Gap BUN Creatinine Estimated GFR (MDRD) Glucose Calcium Total Bilirubin AST ALT Alkaline Phosphatase Troponin I < 0.04 B-Natriuretic Peptide Total Protein Albumin Globulin Albumin/Globulin Ratio Lipase Urine Color YELLOW Urine Clarity CLEAR Urine pH 6.0 Ur Specific [place] <=1.005 Urine Protein NEGATIVE Urine Glucose (UA) NEGATIVE Urine Ketones NEGATIVE Urine Occult Blood MODERATE H Urine Nitrite NEGATIVE Urine Bilirubin NEGATIVE Urine Urobilinogen 0.2 (NORMAL) Ur Leukocyte Esterase NEGATIVE Urine RBC 0-5 Urine WBC 4-5 Ur Squamous Epith Cells RARE Squamous Urine Bacteria Rare Urine Starch PRESENT Ur Microscopic Review INDICATED Urine Culture Comments NOT INDICATED Blood Type B POSITIVE Antibody Screen NEGATIVE 08/27/18 16:30 WBC RBC Hgb Hct MCV MCH MCHC RDW Plt Count MPV Neut # (Auto) Lymph # (Auto) [place] # (Auto) Eos # (Auto) Baso # (Auto) Absolute Nucleated RBC Nucleated RBC % PT INR APTT Sodium Potassium Chloride Carbon Dioxide Anion Gap BUN Creatinine Estimated GFR (MDRD) Glucose Calcium Total Bilirubin AST ALT Alkaline Phosphatase Troponin I B-Natriuretic Peptide 45 Total Protein Albumin Globulin Albumin/Globulin Ratio Lipase Urine Color Urine Clarity Urine pH Ur Specific [place] Urine Protein Urine Glucose (UA) Urine Ketones Urine Occult Blood Urine Nitrite Urine Bilirubin Urine Urobilinogen Ur Leukocyte Esterase Urine RBC Urine WBC Ur Squamous Epith Cells Urine Bacteria Urine Starch Ur Microscopic Review Urine Culture Comments Blood Type Antibody Screen - Rads (name of study) CXR Radiology: Final report received, See rad report (No acute radiographic pulmonary abnormalities. ) PD MEDICAL DECISION MAKING - ED course ED course: The patient is reporting bloody stools, the patient was heme positive and will require admission to the hospital for serial H&H's. The patient will require a Consult from surgery for possible colonoscopy. The case was discussed with the hospitalist who accepts the patient onto her service. The patient understands and agrees to the plan Departure - Departure Disposition: [facility] DC/Xfer Clinical Impression: GI bleed Qualifiers: GI bleed type/associated pathology: unspecified gastrointestinal hemorrhage type Qualified Code(s): K92.2 - Gastrointestinal hemorrhage, unspecified Edema Qualifiers: Edema type: unspecified Qualified Code(s): R60.9 - Edema, unspecified
[2018-08-27] MEDS ORDERED: SODIUM CHLORIDE FLUSH 0.9% 10 ML SYRINGE IVP PRN (20:56)
[2018-08-27 21:08] LABS: BASOPHILS % (AUTO) 0.9 %; EOSINOPHILS # (AUTO) 0.2 10^3/uL (0.0-0.7); EOSINOPHILS % (AUTO) 4.1 %; LYMPHOCYTES # (AUTO) 1.9 10^3/uL (1.5-3.5); LYMPHOCYTES % (AUTO) 36.8 %; MEAN CORPUSCULAR HEMOGLOBIN 28.9 pg (27.0-31.0); MEAN CORPUSCULAR HGB CONC 33.7 g/dL (32.0-36.0); MEAN CORPUSCULAR VOLUME 85.8 fL (80.0-94.0); MEAN PLATELET VOLUME 8.1 fL (7.4-11.4); MONOCYTES # (AUTO) 0.6 10^3/uL (0.0-1.0); MONOCYTES % (AUTO) 12.1 %; NEUTROPHILS # (AUTO) 2.4 10^3/uL (1.5-6.6); NEUTROPHILS % (AUTO) 46.1 %; PLT - PLATELET COUNT 89 10^3/uL (130-450); RED BLOOD COUNT 4.16 10^6/uL (4.70-6.10); RED CELL DISTRIBUTION WIDTH 16.3 % (12.0-15.0); WHITE BLOOD COUNT 5.3 x10^3/uL (4.8-10.8)
--- NOTE | 2018-08-27 21:28 | HISTORY & PHYSICAL EXAMINATION ---
Chief Complaint - Chief Complaint Chief Complaint: ?GI bleed, leg pain History of Present Illness - Admitted From Admitted From:: [facility] ED - History Obtained From Records Reviewed: yes History obtained from: ED physician Exam Limitations: patient is a poor historian - History of Present Illness HPI Comment/Other: 67-year-old male was brought in by EMS for evaluation of GI bleeding. Per friends the patient has had 4 bloody bowel movements today. The patient appears to be intoxicated and only wants to talk about his chronically swollen legs. The patient's legs are chronically swollen and not any acute changes today. The patient does report that he did have bleeding per rectum today. The patient denies any abdominal discomfort or dizziness. The history is limited secondary to the patient Being a very poor historian. The above account was obtained from the ED H&P. He is unable to give me a direct response to the question of why he came to the ED. He is fixated on his legs and requesting sulphur medication because conventional therapy does not work. Patient has chronic changes on his lower extremities from lymphedema. There is no sign indicative of an acute infection. He appears intoxicated. He says his roommate is his friend and landlord and he has been living with this person for 8 years. He was presented for admission mainly because he was heme- positive on digital exam. 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 He lives with a roommate Jesusita and details girlfriend. He lives and [place]. He states that he drinks 2 beers a day but states this he doesn't drink every day he was a heavy drinker previously. Patient states he smokes tobacco daily but smokes only 2 cigarettes a day but sometimes does smoke up to a pack a day and other times he states he doesn't smoke at all. He occasionally uses marijuana. 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 - POLST Patient has POLST: No POLST Status: Full Code Meds/Allgy - Home Medications Home Medications: Ambulatory Orders Medication Instructions Recorded Confirmed raNITIdine [Zantac] 150 mg PO DAILY 01/30/17 02/07/17 oxyCODONE [Roxicodone] 5 mg PO Q4-6H PRN #10 tablet 02/07/17 Bisacodyl Supp [Dulcolax Supp] 10 mg AL 11/16/17 Cholecalciferol (Vitamin D3) 400 unit PO 11/16/17 [Vitamin D3] Lactulose [Constulose] 10 gm PO 11/16/17 Lidocaine Patch 5% [Lidoderm Patch] 1 each TOP DAILY 11/16/17 11/16/17 Multivitamin/Iron/Folic Acid 11/16/17 [Multivitamin with Iron Tablet] Nystatin 100,000 unit PO 11/16/17 Pantoprazole [Protonix] 40 mg PO 11/16/17 Polyethylene Glycol 3350 1,700 gm PO 11/16/17 [Laxaclear] Senna [Senokot] 8.6 mg PO ONCE 11/16/17 11/16/17 Tamsulosin HCl [Flomax] 0.4 mg PO 11/16/17 11/16/17 oxyCODONE [Roxicodone] 5 mg PO Q4-6H #10 tablet 11/16/17 - Allergies Allergies/Adverse Reactions: Allergies Allergy/AdvReac Type Severity Reaction Status Date / Time ibuprofen [From Motrin] AdvReac Mild Nausea Verified 08/27/18 15:46 acetaminophen [From Tylenol] AdvReac Unknown Verified 08/27/18 15:46 NSAIDS (Non-Steroidal AdvReac Nausea Verified 08/27/18 15:46 Anti-Inflamma Review of Systems - Constitutional Constitutional: denies: Chills, Malaise, Weakness, Diaphoresis - Eyes Eyes: denies: Blurred vision, Vision loss, Dipolpia - Ears, Nose & Throat Ears, Nose & Throat: denies: Nasal pain, Nasal discharge - Cardiovascular Cariovascular: reports: Edema. denies: Irregular heart rate, Chest pain, Lightheadedness, Syncope, Exertional dyspnea - Respiratory Respiratory: denies: Cough, Sputum production, Wheezing, SOB at rest - Gastrointestinal Gastrointestinal: denies: Abdominal pain, Abdominal distention, Constipation, Diarrhea, Black stools, Bloody stools, Nausea, Vomiting, Bile emesis, French blood emesis, Coffee grounds emesis, Bloating, Poor appetite - Genitourinary Genitourinary: denies: Frequency, Urgency, Hematuria, Urethral discharge - Integumentary Integumentary: denies: Rash, Lesions, Dryness - Neurological Neurological: denies: Headache, Dizziness, Numbness - Psychiatric Psychiatric: denies: Depression, Anxiety - Endocrine Endocrine: denies: Polyuria, Polydypsia - Hematologic/Lymphatic Hematologic/Lymphatic: denies: Anemia, Bruising Exam - Vital Signs Vital Signs: Vital Signs x48h Temp Pulse Resp BP Pulse Ox 08/27/18 20:44 36.8 C 81 18 129/77 94 08/27/18 19:00 76 18 99/61 95 08/27/18 17:34 89 125/76 97 08/27/18 17:18 86 17 125/83 H 96 08/27/18 15:39 91 17 118/74 95 - Physical Exam General Appearance: positive: No acute distress, Alert Eyes Bilateral: positive: Normal inspection, PERRL, EOMI ENT: positive: ENT inspection nml, No signs of dehydration Neck: positive: Nml inspection, No JVD, Trachea midline Respiratory: positive: Chest non-tender, Breath sounds nml. negative: Wheezes, Rales, Rhonchi Cardiovascular: positive: Regular rate & rhythm, No murmur Abdomen: positive: Non-tender, Nml bowel sounds, No distention Rectal: positive: Stool - heme POS. negative: Black stool, Bloody stool Back: positive: Nml inspection Skin: positive: Color nml, Warm. negative: Cyanosis, Diaphoresis Extremities: positive: Other (chronic changes 2/2 lymphedema) Neurologic/Psychiatric: positive: Oriented x3 Conclusion/Plan - Problem List (1) GI bleed Conclusion/Plan: Serial H&H q6hr X 3. If stable patient may follow up out patient for an EGD and/or colonoscopy Qualifiers: GI bleed type/associated pathology: unspecified gastrointestinal hemorrhage type Qualified Code(s): K92.2 - Gastrointestinal hemorrhage, unspecified (2) Alcohol intoxication Conclusion/Plan: MUDDS and alcohol level pending. If peatient in the hospital longer than 48hrs, Will place on CIWA Qualifiers: Complication of substance-induced condition: uncomplicated Qualified Code(s): F10.920 - Alcohol use, unspecified with intoxication, uncomplicated (3) Lower extremity pain, bilateral Conclusion/Plan: L>R. Suspect chronic 2/2 lymphedema Duplex lower ext ordered (4) GERD (gastroesophageal reflux disease) Conclusion/Plan: Protonix 40mg po daily - Lab Results Fish Bones: 08/27/18 16:09 08/27/18 16:09 Core Measures - Anticipated LOS I expect patient to be DC'd or transferred within 96 hours.: Yes - DVT/VTE - Prophylaxis VTE/DVT Device ordered at admit?: No Not Ordered - Medical Reason: Contraindicated VTE/DVT Prophylaxis med ordered at admit?: No Not Ordered - Medical Reason: Contraindicated
[2018-08-27 21:52] LABS: MUDS CUTOFF CONCENTRATIONS CUTOFF CONC BELOW:
[2018-08-27 22:04] LABS: AMPHETAMINE SCREEN,URINE NEGATIVE (NEGATIVE); BENZODIAZEPINES SCREEN, URINE NEGATIVE (NEGATIVE); COCAINE SCREEN URINE NEGATIVE (NEGATIVE); METHADONE SCREEN, URINE NEGATIVE (NEGATIVE); METHAMPHETAMINES SCREEN, URINE NEGATIVE (NEGATIVE); OPIATE SCREEN, URINE NEGATIVE (NEGATIVE); OXYCODONE SCREEN, URINE NEGATIVE (NEGATIVE); PROPOXYPHENE SCREEN, URINE NEGATIVE (NEGATIVE); TRICYCLIC ANTIDEPRESSANT,URINE NEGATIVE (NEGATIVE)
[2018-08-28] MEDS: SODIUM CHLORIDE FLUSH 0.9% 10 ML SYRINGE IVP SCH ×2 (01:36→09:42)
[2018-08-28 05:48] LABS: HGB - HEMOGLOBIN 10.8 g/dL (14.0-18.0); MEAN CORPUSCULAR HEMOGLOBIN 28.7 pg (27.0-31.0); MEAN CORPUSCULAR HGB CONC 33.4 g/dL (32.0-36.0); MEAN PLATELET VOLUME 8.5 fL (7.4-11.4); RED BLOOD COUNT 3.77 10^6/uL (4.70-6.10); RED CELL DISTRIBUTION WIDTH 16.4 % (12.0-15.0); WHITE BLOOD COUNT 3.9 x10^3/uL (4.8-10.8)
[2018-08-28 05:52] LABS: CALCIUM 8.6 mg/dL (8.5-10.3); CREATININE 0.9 mg/dL (0.6-1.2)
--- NOTE | 2018-08-28 06:32 | Ultrasound Report ---
Reason: bilateral lower ext pain and swelling. L>R Procedure Date: 08/28/2018 Accession Number: [id number] / [id number] Procedure: US - Duplex Ext Veins Bilateral CPT Code: FULL RESULT: EXAM: BILATERAL LOWER EXTREMITY VENOUS ULTRASOUND EXAM DATE: 08/28/2018 05:00 AM. CLINICAL HISTORY: Bilateral lower ext pain and swelling. LR. COMPARISON: DUPLEX EXT VEINS BILATERAL 11/16/2017 4:12 PM. TECHNIQUE: Real-time sonographic vascular imaging was performed by the dormitory counselor through the lower extremities utilizing both color-flow and Doppler spectral analysis. Multiple commercial sales representative static images were saved for review. FINDINGS: Right: Common Femoral Vein (CFV): No evidence of thrombus. CFV-GSV Junction: No evidence of thrombus. Profunda Femoral Vein (PFV): No evidence of thrombus. Femoral Vein (FV) Prox: No evidence of thrombus. Femoral Vein (FV) Mid: No evidence of thrombus. Femoral Vein (FV) Dist: No evidence of thrombus. Popliteal Vein: No evidence of thrombus. Calf veins: Suboptimally visualized due to body habitus. Left: Common Femoral Vein (CFV): No evidence of thrombus. CFV-GSV Junction: No evidence of thrombus. Profunda Femoral Vein (PFV): No evidence of thrombus. Femoral Vein (FV) Prox: No evidence of thrombus. Femoral Vein (FV) Mid: No evidence of thrombus. Femoral Vein (FV) Dist: No evidence of thrombus. Popliteal Vein: No evidence of thrombus. Calf veins: Suboptimally visualized due to body habitus. Other: Subcutaneous edema noted. Small bilateral Hermosillo's cyst, measuring up to 2.4 cm on the right and 2.5 cm on the left. IMPRESSION: No evidence for deep venous thrombosis. RADIA
[2018-08-28 08:36] VITALS: BP 124/74
--- NOTE | 2018-08-28 08:58 | Discharge Plan ---
Discharge Plan Disposition: 01 Home, Self Care Condition: Good Diet: Regular Activity Restrictions: No Restrictions Additional Instructions or Follow Up instructions: You were admitted to the hospital with complaints of questionable GI bleed per report that you had bloody bowel movements. Your blood counts were followed and remained stable during your hospitalization. Given your history of GI bleed and esophageal varices (that you report were banded), it is important for you to decrease/stop drinking alcohol. Please follow-up with your primary care provider within 1 week for post- hospitalization follow-up. No Smoking: If you smoke, Please STOP! Call for help. Follow-up with: Rommel Sena MD [Physician No Access] -
--- NOTE | 2018-08-28 08:58 | DISCHARGE SUMMARY ---
"Discharge Summary Admit Date: 08/27/18 Discharge Date: 08/28/18 Discharging Provider: Jacqueline CHAIDEZ Primary Care Provider: Dr. Rommel Sena Condition at Discharge: Good Discharge Disposition: 01 Home, Self Care - DIAGNOSES Admission Diagnoses: (1) GI bleed (2) Alcohol intoxication (3) Lower extremity pain, bilateral (4) GERD (gastroesophageal reflux disease) Discharge Diagnoses with Status of Each Condition: (1) GI bleed, improved (2) Alcohol intoxication, improved (3) Lower extremity pain, bilateral, stable (4) GERD (gastroesophageal reflux disease), stable - HPI History of Present Illness: As per H&P by Dr. Sneha Cordova 08/27/2018: '67-year-old male was brought in by EMS for evaluation of GI bleeding. Per friends the patient has had 4 bloody bowel movements today. The patient appears to be intoxicated and only wants to talk about his chronically swollen legs. The patient's legs are chronically swollen and not any acute changes today. The patient does report that he did have bleeding per rectum today. The patient denies any abdominal discomfort or dizziness. The history is limited secondary to the patient Being a very poor historian. The above account was obtained from the ED H&P. He is unable to give me a direct response to the question of why he came to the ED. He is fixated on his legs and requesting sulphur medication because conventional therapy does not work. Patient has chronic changes on his lower extremities from lymphedema. There is no sign indicative of an acute infection. He appears intoxicated. He says his roommate is his friend and landlord and he has been living with this person for 8 years. He was presented for admission mainly because he was heme- positive on digital exam.' - CONSULTS | PROCEDURES Consultations: None - HOSPITAL COURSE Hospital Course: (1) GI bleed Per ER physician, ARVIN heme-positive. Serial H&H's were obtained. Hgb remained stable. He will need to be referred by his PCP for EGD and/or colonoscopy. (2) Alcohol intoxication MUDDS negative. Alcohol level 271.6. (3) Lower extremity pain, bilateral Suspect chronic 2/2 lymphedema. BLE duplex ordered, negative for DVT. (4) GERD (gastroesophageal reflux disease) He was continued on protonix 40mg po daily - ALLERGIES Allergies/Adverse Reactions: Allergies Allergy/AdvReac Type Severity Reaction Status Date / Time ibuprofen [From Motrin] AdvReac Mild Nausea Verified 08/27/18 15:46 acetaminophen [From Tylenol] AdvReac Unknown Verified 08/27/18 15:46 NSAIDS (Non-Steroidal AdvReac Nausea Verified 08/27/18 15:46 Anti-Inflamma - MEDICATIONS Home Medications: Ambulatory Orders Medication Instructions Recorded Confirmed raNITIdine [Zantac] 150 mg PO DAILY 01/30/17 02/07/17 oxyCODONE [Roxicodone] 5 mg PO Q4-6H PRN #10 tablet 02/07/17 Bisacodyl Supp [Dulcolax Supp] 10 mg DC 11/16/17 Cholecalciferol (Vitamin D3) 400 unit PO 11/16/17 [Vitamin D3] Lactulose [Constulose] 10 gm PO 11/16/17 Lidocaine Patch 5% [Lidoderm Patch] 1 each TOP DAILY 11/16/17 11/16/17 Multivitamin/Iron/Folic Acid 11/16/17 [Multivitamin with Iron Tablet] Nystatin 100,000 unit PO 11/16/17 Pantoprazole [Protonix] 40 mg PO 11/16/17 Polyethylene Glycol 3350 1,700 gm PO 11/16/17 [Laxaclear] Senna [Senokot] 8.6 mg PO ONCE 11/16/17 11/16/17 Tamsulosin HCl [Flomax] 0.4 mg PO 11/16/17 11/16/17 oxyCODONE [Roxicodone] 5 mg PO Q4-6H #10 tablet 11/16/17 - PHYSICAL EXAM AT DISCHARGE General Appearance: positive: No acute distress, Alert, Other (disheveled) Eyes Bilateral: positive: Normal inspection, PERRL, EOMI ENT: positive: ENT inspection nml, Pharynx nml, No signs of dehydration Neck: positive: Nml inspection, Trachea midline Respiratory: positive: Chest non-tender, No respiratory distress, Breath sounds nml. negative: Wheezes, Rales, Rhonchi Cardiovascular: positive: Regular rate & rhythm, No murmur, No gallop, Bradycardia Peripheral Pulses: positive: 1+ Abdomen: positive: Non-tender, No organomegaly, Nml bowel sounds, No distention Skin: positive: Warm, Dry, Other (chronic skin changes) Extremities: positive: Non-tender, Full ROM, Nml appearance Neurologic/Psychiatric: positive: Oriented x3, CN's nml (2-12), Motor nml, Sensation nml, Mood/affect nml - LABS Result Diagrams: 08/28/18 10:53 08/28/18 05:23 Other Lab Results: Laboratory Tests 08/27/18 08/27/18 08/27/18 16:09 16:09 16:09 WBC 4.6 L RBC 4.03 L Hgb 11.6 L Hct 35.0 L MCV 86.8 MCH 28.7 MCHC 33.0 RDW 16.1 H Plt Count 80 L MPV 8.1 Neut # (Auto) 2.5 Lymph # (Auto) 1.4 L Carter # (Auto) 0.5 Eos # (Auto) 0.2 Baso # (Auto) 0.0 Absolute Nucleated RBC 0.00 Nucleated RBC % 0.0 PT 16.1 H INR 1.4 H APTT 30.6 Sodium 138 Potassium 3.8 Chloride 105 Carbon Dioxide 22 Anion Gap 11.0 BUN 12 Creatinine 0.9 Estimated GFR (MDRD) 84 L Glucose 109 H Calcium 8.8 Total Bilirubin 0.8 AST 64 H ALT 37 Alkaline Phosphatase 116 Troponin I B-Natriuretic Peptide Total Protein 7.8 Albumin 3.4 Globulin 4.4 H Albumin/Globulin Ratio 0.8 L Lipase 59 H Urine Color Urine Clarity Urine pH Ur Specific [place] Urine Protein Urine Glucose (UA) Urine Ketones Urine Occult Blood Urine Nitrite Urine Bilirubin Urine Urobilinogen Ur Leukocyte Esterase Urine RBC Urine WBC Ur Squamous Epith Cells Urine Bacteria Urine Starch Ur Microscopic Review Urine Culture Comments Urine Opiates Screen Ur Oxycodone Screen Urine Methadone Screen Ur Propoxyphene Screen Ur Barbiturates Screen Ur Tricyclics Screen Ur Phencyclidine Scrn Ur Amphetamine Screen U Methamphetamines Scrn U Benzodiazepines Scrn Urine Cocaine Screen U Cannabinoids Screen Ethyl Alcohol Blood Type Antibody Screen 08/27/18 08/27/18 08/27/18 16:09 16:30 16:30 WBC RBC Hgb Hct MCV MCH MCHC RDW Plt Count MPV Neut # (Auto) Lymph # (Auto) Carter # (Auto) Eos # (Auto) Baso # (Auto) Absolute Nucleated RBC Nucleated RBC % PT INR APTT Sodium Potassium Chloride Carbon Dioxide Anion Gap BUN Creatinine Estimated GFR (MDRD) Glucose Calcium Total Bilirubin AST ALT Alkaline Phosphatase Troponin I < 0.04 B-Natriuretic Peptide Total Protein Albumin Globulin Albumin/Globulin Ratio Lipase Urine Color YELLOW Urine Clarity CLEAR Urine pH 6.0 Ur Specific [place] <=1.005 Urine Protein NEGATIVE Urine Glucose (UA) NEGATIVE Urine Ketones NEGATIVE Urine Occult Blood MODERATE H Urine Nitrite NEGATIVE Urine Bilirubin NEGATIVE Urine Urobilinogen 0.2 (NORMAL) Ur Leukocyte Esterase NEGATIVE Urine RBC 0-5 Urine WBC 4-5 Ur Squamous Epith Cells RARE Squamous Urine Bacteria Rare Urine Starch PRESENT Ur Microscopic Review INDICATED Urine Culture Comments NOT INDICATED Urine Opiates Screen Ur Oxycodone Screen Urine Methadone Screen Ur Propoxyphene Screen Ur Barbiturates Screen Ur Tricyclics Screen Ur Phencyclidine Scrn Ur Amphetamine Screen U Methamphetamines Scrn U Benzodiazepines Scrn Urine Cocaine Screen U Cannabinoids Screen Ethyl Alcohol Blood Type B POSITIVE Antibody Screen NEGATIVE 08/27/18 08/27/18 08/27/18 16:30 16:30 21:02 WBC 5.3 RBC 4.16 L Hgb 12.0 L Hct 35.7 L MCV 85.8 MCH 28.9 MCHC 33.7 RDW 16.3 H Plt Count 89 L MPV 8.1 Neut # (Auto) 2.4 Lymph # (Auto) 1.9 Carter # (Auto) 0.6 Eos # (Auto) 0.2 Baso # (Auto) 0.0 Absolute Nucleated RBC 0.00 Nucleated RBC % 0.1 PT INR APTT Sodium Potassium Chloride Carbon Dioxide Anion Gap BUN Creatinine Estimated GFR (MDRD) Glucose Calcium Total Bilirubin AST ALT Alkaline Phosphatase Troponin I B-Natriuretic Peptide 45 Total Protein Albumin Globulin Albumin/Globulin Ratio Lipase Urine Color Urine Clarity Urine pH Ur Specific [place] Urine Protein Urine Glucose (UA) Urine Ketones Urine Occult Blood Urine Nitrite Urine Bilirubin Urine Urobilinogen Ur Leukocyte Esterase Urine RBC Urine WBC Ur Squamous Epith Cells Urine Bacteria Urine Starch Ur Microscopic Review Urine Culture Comments Urine Opiates Screen NEGATIVE Ur Oxycodone Screen NEGATIVE Urine Methadone Screen NEGATIVE Ur Propoxyphene Screen NEGATIVE Ur Barbiturates Screen NEGATIVE Ur Tricyclics Screen NEGATIVE Ur Phencyclidine Scrn NEGATIVE Ur Amphetamine Screen NEGATIVE U Methamphetamines Scrn NEGATIVE U Benzodiazepines Scrn NEGATIVE Urine Cocaine Screen NEGATIVE U Cannabinoids Screen NEGATIVE Ethyl Alcohol Blood Type Antibody Screen 08/27/18 08/28/18 08/28/18 21:36 05:23 05:23 WBC 3.9 L RBC 3.77 L Hgb 10.8 L Hct 32.4 L MCV 86.0 MCH 28.7 MCHC 33.4 RDW 16.4 H Plt Count 65 L MPV 8.5 Neut # (Auto) Lymph # (Auto) Carter # (Auto) Eos # (Auto) Baso # (Auto) Absolute Nucleated RBC Nucleated RBC % PT INR APTT Sodium 140 Potassium 3.8 Chloride 108 Carbon Dioxide 26 Anion Gap 6.0 BUN 17 Creatinine 0.9 Estimated GFR (MDRD) 84 L Glucose 115 H Calcium 8.6 Total Bilirubin AST ALT Alkaline Phosphatase Troponin I B-Natriuretic Peptide Total Protein Albumin Globulin Albumin/Globulin Ratio Lipase Urine Color Urine Clarity Urine pH Ur Specific [place] Urine Protein Urine Glucose (UA) Urine Ketones Urine Occult Blood Urine Nitrite Urine Bilirubin Urine Urobilinogen Ur Leukocyte Esterase Urine RBC Urine WBC Ur Squamous Epith Cells Urine Bacteria Urine Starch Ur Microscopic Review Urine Culture Comments Urine Opiates Screen Ur Oxycodone Screen Urine Methadone Screen Ur Propoxyphene Screen Ur Barbiturates Screen Ur Tricyclics Screen Ur Phencyclidine Scrn Ur Amphetamine Screen U Methamphetamines Scrn U Benzodiazepines Scrn Urine Cocaine Screen U Cannabinoids Screen Ethyl Alcohol 271.6 Blood Type Antibody Screen 08/28/18 10:53 WBC 3.9 L RBC 3.99 L Hgb 11.6 L Hct 34.5 L MCV 86.4 MCH 29.2 MCHC 33.7 RDW 16.6 H Plt Count 69 L MPV 8.2 Neut # (Auto) Lymph # (Auto) Carter # (Auto) Eos # (Auto) Baso # (Auto) Absolute Nucleated RBC Nucleated RBC % PT INR APTT Sodium Potassium Chloride Carbon Dioxide Anion Gap BUN Creatinine Estimated GFR (MDRD) Glucose Calcium Total Bilirubin AST ALT Alkaline Phosphatase Troponin I B-Natriuretic Peptide Total Protein Albumin Globulin Albumin/Globulin Ratio Lipase Urine Color Urine Clarity Urine pH Ur Specific [place] Urine Protein Urine Glucose (UA) Urine Ketones Urine Occult Blood Urine Nitrite Urine Bilirubin Urine Urobilinogen Ur Leukocyte Esterase Urine RBC Urine WBC Ur Squamous Epith Cells Urine Bacteria Urine Starch Ur Microscopic Review Urine Culture Comments Urine Opiates Screen Ur Oxycodone Screen Urine Methadone Screen Ur Propoxyphene Screen Ur Barbiturates Screen Ur Tricyclics Screen Ur Phencyclidine Scrn Ur Amphetamine Screen U Methamphetamines Scrn U Benzodiazepines Scrn Urine Cocaine Screen U Cannabinoids Screen Ethyl Alcohol Blood Type Antibody Screen - DIAGNOSTIC IMAGING Diagnostic Imaging Results: Final report reviewed Diagnostic Imaging Results Comments: 2-view CXR 08/27/2018: No acute radiographic pulmonary abnormalities Bilateral lower extremity venous u/s 08/28/2018: No evidence of deep venous thrombosis - FOLLOW UP Follow Up: Follow-up with Dr. Rommel Sena within 1 week - TIME SPENT Time Spent in Discharge (Minutes): 45"
[2018-08-28] MEDS ORDERED: POLYETHYLENE GLYCOL 3350 17 GM PACKET PO SCH (09:00)
[2018-08-28 11:02] LABS: HGB - HEMOGLOBIN 11.6 g/dL (14.0-18.0); MEAN CORPUSCULAR HEMOGLOBIN 29.2 pg (27.0-31.0); MEAN CORPUSCULAR HGB CONC 33.7 g/dL (32.0-36.0); MEAN CORPUSCULAR VOLUME 86.4 fL (80.0-94.0); MEAN PLATELET VOLUME 8.2 fL (7.4-11.4); RED BLOOD COUNT 3.99 10^6/uL (4.70-6.10); RED CELL DISTRIBUTION WIDTH 16.6 % (12.0-15.0); WHITE BLOOD COUNT 3.9 x10^3/uL (4.8-10.8)
== END 2018-08-28 13:10 | disposition home or self-care (01) ==
LOC: EDUNIT# → ED 15:34 → OBS 20:56
PROVIDERS: ADMIT Internal Medicine; ATTEND Nurse Practitioner
DX: K92.2 Gastrointestinal hemorrhage, unspecified (principal); F10.129 Alcohol abuse with intoxication, unspecified; M79.605 Pain in left leg; M79.604 Pain in right leg; K21.9 Gastro-esophageal reflux disease without esophagitis; J44.9 Chronic obstructive pulmonary disease, unspecified; F17.210 Nicotine dependence, cigarettes, uncomplicated; I89.0 Lymphedema, not elsewhere classified; I50.9 Heart failure, unspecified; I87.8 Other specified disorders of veins; K74.60 Unspecified cirrhosis of liver
CPT/HCPCS: 36415; 71046; 80048; 80053; 80306; 80320; 81001; 83690; 83880; 84484; 85025; 85027; 85610; 85730; 86850; 86900; 86901; 93005; 93970; 99284; G0378; 80307; 81003; 87086

== ENCOUNTER 2019-06-05 18:27 | Outpatient (CLI) | payer OTHER | END 2019-06-05 23:59 | disposition critical access hospital (66) | LOC: EMS 18:27 | PROVIDERS: ATTEND Surgery | DX: M25.562 Pain in left knee (principal); M25.561 Pain in right knee; W01.0XXA Fall on same level from slipping, tripping and stumbling without subsequent striking against object, initial encounter; Y93.01 Activity, walking, marching and hiking; Y92.89 Other specified places as the place of occurrence of the external cause | CPT/HCPCS: A0425; A0429 ==

== ENCOUNTER 2019-06-05 18:46 | Emergency (ER) | payer OTHER ==
--- NOTE | 2019-06-05 18:54 | ED Physician Documentation ---
PD HPI HEAD INJURY - Stated complaint Stated Complaint: GLF, KNEE ABRASIONS, HBD, LT HIP ABSCESS - History obtained from History obtained from: Patient, EMS - History of Present Illness Mechanism of head injury: Fell (68-year-old gentleman with history of alcoholism presents after a fall, he scraped both knees and his left hip. He also says he hit his head but denies any significant head injury but he does seem intoxicated. Tetanus is up-to-date.) Review of Systems Constitutional: reports: Reviewed and negative Nose: reports: Reviewed and negative Throat: reports: Reviewed and negative PD PAST MEDICAL HISTORY - Past Medical History Cardiovascular: Congestive heart failure Respiratory: Asthma, COPD Neuro: None Endocrine/Autoimmune: None GI: GERD, Esophageal varices, GI bleed, Colon polyps, Cirrhosis : None HEENT: None Psych: Depression, Post traumatic stress disorder Musculoskeletal: Osteoarthritis, Fibromyalgia, Gout Derm: Other drug resistant infections, Other - Past Surgical History Past Surgical History: Yes General: Splenectomy Ortho: Knee replacement, Other - Present Medications Home Medications: Ambulatory Orders Medication Instructions Recorded Confirmed raNITIdine [Zantac] 150 mg PO DAILY 01/30/17 02/07/17 oxyCODONE [Roxicodone] 5 mg PO Q4-6H PRN #10 tablet 02/07/17 Bisacodyl Supp [Dulcolax Supp] 10 mg MI 11/16/17 Cholecalciferol (Vitamin D3) 400 unit PO 11/16/17 [Vitamin D3] Lactulose [Constulose] 10 gm PO 11/16/17 Lidocaine Patch 5% [Lidoderm Patch] 1 each TOP DAILY 11/16/17 11/16/17 Multivitamin/Iron/Folic Acid 11/16/17 [Multivitamin with Iron Tablet] Nystatin 100,000 unit PO 11/16/17 Pantoprazole [Protonix] 40 mg PO 11/16/17 Polyethylene Glycol 3350 1,700 gm PO 11/16/17 [Laxaclear] Senna [Senokot] 8.6 mg PO ONCE 11/16/17 11/16/17 Tamsulosin HCl [Flomax] 0.4 mg PO 11/16/17 11/16/17 oxyCODONE [Roxicodone] 5 mg PO Q4-6H #10 tablet 11/16/17 - Allergies Allergies/Adverse Reactions: Allergies Allergy/AdvReac Type Severity Reaction Status Date / Time ibuprofen [From Motrin] AdvReac Mild Nausea Verified 06/05/19 18:58 acetaminophen [From Tylenol] AdvReac Unknown Verified 06/05/19 18:58 NSAIDS (Non-Steroidal AdvReac Nausea Verified 06/05/19 18:58 Anti-Inflamma - Social History Does the pt smoke?: Yes Smoking Status: Current every day smoker Does the pt drink ETOH?: Yes Does the pt have substance abuse?: No - Immunizations Immunizations are current?: No Immunizations: TDAP >10years/unknown - POLST Patient has POLST: No POLST Status: Full Code PD ED PE NORMAL - Vitals Vital signs reviewed: Yes - General General: Alert and oriented X 3, Other (Slow slurred speech but cooperative) - HEENT HEENT: PERRL, EOMI - Neck Neck: Supple, no meningeal sign, No bony TTP - Cardiac Cardiac: RRR, No murmur - Respiratory Respiratory: No respiratory distress, Clear bilaterally - Abdomen Abdomen: Non tender - Back Back: No CVA TTP, No spinal TTP - Derm Derm: Normal color, Warm and dry - Extremities Extremities: Other (He has a hematoma over the left hip with an overlying abrasion, abrasions on both knees, none of his extremities are tender but we will image given his intoxicated status.) - Neuro Neuro: Alert and oriented X 3, Normal speech Results - Vitals Vitals: Vital Signs - 24 hr 06/05/19 12 18:58 20:45 Temperature 36.7 C 36.5 C Heart Rate 79 80 Respiratory 17 16 Rate Blood Pressure 141/91 H 119/61 O2 Saturation 97 98 Oxygen O2 Source Room air - Rads (name of study) X-rays of both knees, the left hip, and CT of the head and cervical spine Radiology: EMP read contemporaneously (Degenerative chronic changes without evidence of acute trauma) PD MEDICAL DECISION MAKING - ED course ED course: 68-year-old gentleman, well-known to this emergency department generally for complications related to alcohol use presents with fall and abrasions and a hematoma on the knees and left hip. Relevant imaging is negative. Ambulating well in the department. Departure - Departure Disposition: 01 Home, Self Care Clinical Impression: Abrasion, Alcohol abuse Injury of hip and thigh Qualifiers: Encounter type: initial encounter Laterality: left Qualified Code(s): S79.912A - Unspecified injury of left hip, initial encounter Fall from slip, trip, or stumble Qualifiers: Encounter type: initial encounter Qualified Code(s): W01.0XXA - Fall on same level from slipping, tripping and stumbling without subsequent striking against object, initial encounter Contusion, hip Qualifiers: Encounter type: initial encounter Laterality: left Qualified Code(s): S70.02XA - Contusion of left hip, initial encounter Alcohol intoxication Qualifiers: Complication of substance-induced condition: uncomplicated Qualified Code(s): F10.920 - Alcohol use, unspecified with intoxication, uncomplicated Contusion of right knee Qualifiers: Encounter type: initial encounter Qualified Code(s): S80.01XA - Contusion of right knee, initial encounter Contusion of left knee Qualifiers: Encounter type: initial encounter Qualified Code(s): S80.02XA - Contusion of left knee, initial encounter Condition: Stable Record reviewed to determine appropriate education?: Yes Instructions: ED Abrasion, ED Alcohol Intoxication Comments: Stop drinking alcohol, it is killing you. Return for any worsening symptoms. I would not take any of your usual pain medications tonight. Return if worse. Follow-up with your primary care doctor. Discharge Date/Time: 06/05/19 20:55
--- NOTE | 2019-06-05 20:06 | XRAY Report ---
Reason: head, B knee and L hip inj, fall ,Etoh Procedure Date: 06/05/2019 Accession Number: [id number] / [id number] Procedure: XR - Hip w/Pelvis 2-3V LT CPT Code: Final Report FULL RESULT: EXAM: LEFT HIP RADIOGRAPHY EXAM DATE: 06/05/2019 07:15 PM. CLINICAL HISTORY: Head, bilateral knee and left hip injury, fall, ETOH. COMPARISON: None. TECHNIQUE: 2 views. FINDINGS: Bones: Normal. No fractures or bone lesion. Joints: No dislocations. Mild bilateral degenerative joint space narrowing. Soft Tissues: Benign appearing soft tissue calcifications noted adjacent to the proximal femur presumably related to remote soft tissue injury. IMPRESSION: Mild degenerative changes. No fracture or dislocation. RADIA
--- NOTE | 2019-06-05 20:09 | XRAY Report ---
Reason: head, B knee and L hip inj, fall ,Etoh Procedure Date: 06/05/2019 Accession Number: [id number] / [id number] Procedure: XR - Knee 4 View BILAT CPT Code: Final Report FULL RESULT: EXAMS: 1. Right Knee Radiography 2. Left Knee Radiography EXAM DATE:06/05/2019 07:56 PM. CLINICAL HISTORY:Head, bilateral knee and left hip injury, fall, ETOH. COMPARISON: XR BILAT KNEES 2 VIEWS 01/21/2010 10:00 PM. TECHNIQUE: 3 views each. FINDINGS: Right Knee: Bones: Normal. No fractures or bone lesions. Joints: Mild narrowing of the medial and patellofemoral joint compartments noting chondrocalcinosis. No joint effusion. Normal alignment. Soft Tissues: Prepatellar soft tissue swelling. Left Knee: Bones: Normal. No fractures or bone lesions. Joints: Mild narrowing of the medial and patellofemoral joint compartments with diffuse chondrocalcinosis. No joint effusion. Normal alignment. Soft Tissues: Mild prepatellar soft tissue swelling. IMPRESSION: Mild bilateral degenerative changes. No acute bony abnormality. RADIA
--- NOTE | 2019-06-05 20:30 | CT Report ---
Reason: head, B knee and L hip inj, fall ,Etoh Procedure Date: 06/05/2019 Accession Number: [id number] / [id number] Procedure: CT - CERVICAL SPINE WO CPT Code: Final Report FULL RESULT: EXAM: CT CERVICAL SPINE WITHOUT CONTRAST DATE: 06/05/2019 07:38 PM. HISTORY: Head, B knee and L hip inj, fall ,Etoh. COMPARISONS: HEAD W/O 03/12/2018 10:24 PM CERVICAL SPINE W/O 01/21/2015 6:05 PM. TECHNIQUE: Thin-section axial images were acquired of the cervical spine without contrast. Post-processing: Coronal and sagittal reformats. Other: None. In accordance with CT protocol optimization, one or more of the following dose reduction techniques were utilized for this exam: automated exposure control, adjustment of mA and/or KV based on patient size, or use of iterative reconstructive technique. FINDINGS: Alignment: No scoliosis. Grade 1 retrolisthesis of C6 on C7 measuring 4 mm. Bones: No acute fractures. No bony destructive lesions. Craniovertebral junction: Intact. Soft tissue calcifications about the dens which can be seen with CPPD (calcium pyrophosphate deposition disease). Interspace Levels/Facets: Severe degenerative disk disease at C6-C7. Moderate severe degenerative disease at C4-C5. Severe level bilateral facet joint arthropathy. Mild to moderate right neural foraminal narrowing at C4-C5. Mild to moderate bilateral neural foraminal narrowing at C5-C6. Moderate right and severe left neural foraminal narrowing at C6-C7. Musculature: Nonspecific and fatty atrophy. Other: No significant prevertebral soft tissue swelling. The lung apices are clear. IMPRESSION: 1. No acute fractures or dislocations. 2. Multilevel degenerative changes as detailed in the findings section of the report. RADIA
--- NOTE | 2019-06-05 20:32 | CT Report ---
Reason: head, B knee and L hip inj, fall ,Etoh Procedure Date: 06/05/2019 Accession Number: [id number] / [id number] Procedure: CT - HEAD WO CPT Code: Final Report FULL RESULT: EXAM: CT HEAD EXAM DATE: 06/05/2019 07:39 PM. CLINICAL HISTORY: Head, B knee and L hip inj, fall ,Etoh. COMPARISON: HEAD W/O 03/12/2018 10:24 PM. TECHNIQUE: Multiaxial CT images were obtained from the foramen magnum to the vertex. Reformats: Sagittal and coronal. IV contrast: None. In accordance with CT protocol optimization, one or more of the following dose reduction techniques were utilized for this exam: automated exposure control, adjustment of mA and/or KV based on patient size, or use of iterative reconstructive technique. FINDINGS: Parenchyma: No intraparenchymal hemorrhage. No evidence of mass, midline shift, or CT findings of infarction. Mckenzie-white differentiation is distinct. Extraaxial Spaces: Normal for age. No subdural or epidural collections identified. Ventricles: Normal in size and position. Sinuses and Orbits: Right maxillary sinusitis. Rest of theimaged paranasal sinuses, orbits, and mastoids show no significant abnormality. Bones: No evidence of fracture or calvarial defect. Other: None. IMPRESSION: No acute traumatic intracranial abnormality. RADIA
[2019-06-05 20:50] VITALS: BP 119/61
== END 2019-06-05 20:55 | disposition home or self-care (01) ==
LOC: EDUNIT# → ED 18:46
DX: S80.212A Abrasion, left knee, initial encounter (principal); S80.211A Abrasion, right knee, initial encounter; S70.212A Abrasion, left hip, initial encounter; W18.30XA Fall on same level, unspecified, initial encounter; F10.129 Alcohol abuse with intoxication, unspecified; F17.200 Nicotine dependence, unspecified, uncomplicated
CPT/HCPCS: 70450; 72125; 99283; 99284

== ENCOUNTER 2020-01-26 15:47 | Outpatient (CLI) | payer OTHER | END 2020-01-26 15:48 | disposition critical access hospital (66) | LOC: EMS 15:47 | PROVIDERS: ATTEND Surgery | DX: R41.82 Altered mental status, unspecified (principal); M54.2 Cervicalgia; M79.605 Pain in left leg; M79.604 Pain in right leg; S50.811A Abrasion of right forearm, initial encounter; W17.81XA Fall down embankment (hill), initial encounter; Y92.89 Other specified places as the place of occurrence of the external cause | CPT/HCPCS: A0425; A0427 ==

== ENCOUNTER 2020-01-26 16:01 | Emergency (ER) | payer OTHER ==
[2020-01-26 16:24] LABS: BASOPHILS % (AUTO) 0.9 %; EOSINOPHILS # (AUTO) 0.1 10^3/uL (0.0-0.7); EOSINOPHILS % (AUTO) 2.6 %; HGB - HEMOGLOBIN 12.6 g/dL (14.0-18.0); LYMPHOCYTES # (AUTO) 1.7 10^3/uL (1.5-3.5); LYMPHOCYTES % (AUTO) 36.3 %; MEAN CORPUSCULAR HEMOGLOBIN 33.1 pg (27.0-31.0); MEAN CORPUSCULAR HGB CONC 34.1 g/dL (32.0-36.0); MEAN CORPUSCULAR VOLUME 96.9 fL (80.0-94.0); MEAN PLATELET VOLUME 10.2 fL (7.4-11.4); MONOCYTES # (AUTO) 0.6 10^3/uL (0.0-1.0); MONOCYTES % (AUTO) 12.4 %; NEUTROPHILS # (AUTO) 2.2 10^3/uL (1.5-6.6); NEUTROPHILS % (AUTO) 47.4 %; PLT - PLATELET COUNT 78 10^3/uL (130-450); RED BLOOD COUNT 3.81 10^6/uL (4.70-6.10); RED CELL DISTRIBUTION WIDTH 13.2 % (12.0-15.0); WHITE BLOOD COUNT 4.6 x10^3/uL (4.8-10.8)
[2020-01-26] MEDS ORDERED: IOVERSOL 320 100 ML VIAL IVP ONE ×2 (16:25→17:29)
[2020-01-26 16:27] LABS: INR 1.4 (0.8-1.2); PT - PROTHROMBIN TIME 15.7 secs (9.9-12.6)
[2020-01-26 16:34] LABS: PARTIAL THROMBOPLASTIN TIME 29.1 secs (24.9-33.3)
[2020-01-26 16:36] LABS: ALBUMIN 3.2 g/dL (3.2-5.5); ALBUMIN/GLOBULIN RATIO 0.8 (1.0-2.2); CALCIUM 8.2 mg/dL (8.5-10.3); CREATININE 0.8 mg/dL (0.6-1.2); TOTAL PROTEIN 7.3 g/dL (6.7-8.2)
--- NOTE | 2020-01-26 17:13 | CT Report ---
PROCEDURE: MAXILLOFACIAL WO INDICATIONS: facial trauma TECHNIQUE: Noncontrast 1.5 mm thick axial images acquired from the mandible through the frontal sinuses, with co yandy and sagittal reformatting. For radiation dose reduction, the following was used: automated ex posure control, adjustment of mA and/or kV according to patient size. COMPARISON: Correlation is made with accompanying head CT and CT cervical spine. FINDINGS: Image quality: Excellent. Bones and teeth: Orbital wick are intact. Sinus wick show no fracture or deformity. Nasal bones and septum are intact. Visualized portions of the mandible demonstrate no fractures or subluxation. Zygomatic arches are intact. Pterygoid plates are intact. Visualized portions of the skull base an d auditory canals are intact. No teeth are seen. Sinuses: There is a mucous retention cyst with mild mucosal thickening involving the right maxillary sinus. Paranasal sinuses are otherwise well aerated, without fluid levels, mucosal thickening, or mu coceles. Mastoid air cells are aerated. Mild rightward nasal septal deviation is seen. Soft tissues: No edema, masses, or fluid collections. No enlarged lymph nodes. No soft tissue lace rations or debris. Vascular: Visualized vascular structures appear normal in the absence of contrast. Bony vascular fo ramina and canals are intact. IMPRESSION: No displaced fractures can be seen. Focal right maxillary sinus disease. Reviewed by: Mazin Sultana MD on 01/26/2020 4:12 PM IDTERESO Approved by: Mazin Sultana MD on 01/26/2020 4:12 PM AKTERESO Station ID: [id number]
--- NOTE | 2020-01-26 17:14 | CT Report ---
PROCEDURE: HEAD WO INDICATIONS: Head trauma, abnormal mental status TECHNIQUE: Noncontrast 4.5 mm thick angled axial sections acquired from the foramen magnum to the vertex. For r adiation dose reduction, the following was used: automated exposure control, adjustment of mA and/or kV according to patient size. COMPARISON: Correlation is made with a maxillofacial CT and cervical spine CT, 01/26/2020. FINDINGS: Image quality: Excellent. CSF spaces: Basal cisterns are patent. No extra-axial fluid collections. Ventricles are normal in size and shape. Brain: No midline shift. No intracranial masses or hemorrhage. Mckenzie-white matter interface is norm al. Skull and face: Calvarium and visualized facial bones are intact, without suspicious lesions. Sinuses: Mild to moderate mucosal thickening is partially seen within the right maxillary sinus. Vis ualized sinuses and mastoids are otherwise clear. IMPRESSION: No intracranial hemorrhage is seen. No significant intracranial abnormality is seen. Right maxillary disease partially seen. Reviewed by: Mazin Sultana MD on 01/26/2020 4:13 PM MABEL Approved by: Mazin Sultana MD on 01/26/2020 4:13 PM MABEL Station ID: [id number]
--- NOTE | 2020-01-26 17:17 | CT Report ---
PROCEDURE: CERVICAL SPINE WO INDICATIONS: Neck trauma, midline tenderness TECHNIQUE: Noncontrast 3 mm thick sections acquired from the skull base to the T4 level. Sagittal and coronal r eformats were then constructed. For radiation dose reduction, the following was used: automated exp osure control, adjustment of mA and/or kV according to patient size. COMPARISON: Correlation is made with the accompanying head CT and maxillofacial CT, 01/26/2020 FINDINGS: Image quality: Excellent. Bones: No fractures or dislocations. Visualized superior ribs are intact. Prominent degenerative changes are seen, with moderate to severe disc space narrowing at C4-C5 and C6 -C7. At least moderate disc space narrowing is seen at C5-C6. Posteriorly directed endplate osteophyt es are seen, which are most prominent at C6-C7. There is minimal retrolisthesis at C6-C7 and mild ant erolisthesis seen at C7-T1. Focal degenerative change is also seen involving the C1-C2 interface ante riorly. Facet hypertrophy is seen throughout, including fusion of right-sided facet joints at C4-C5. Soft tissues: Prevertebral soft tissues are normal in thickness. No paravertebral hematomas. No ap ical pneumothoraces. IMPRESSION: No acute fractures are seen. Degenerative changes are seen, which are most prominent at the C6-C7 level. Reviewed by: Mazin Sultana MD on 01/26/2020 4:15 PM MABEL Approved by: Mazin Sultana MD on 01/26/2020 4:15 PM AKTERESO Station ID: [id number]
[2020-01-26 17:19] LABS: MUDS CUTOFF CONCENTRATIONS CUTOFF CONC BELOW:
--- NOTE | 2020-01-26 17:21 | CT Report ---
PROCEDURE: CHEST W INDICATIONS: Chest trauma, blunt, low energy CONTRAST: IV CONTRAST: Optiray 320 ml: 100 PO CONTRAST: *NO PO CONTRAST TECHNIQUE: After the administration of intravenous contrast, 5 mm thick sections acquired from the pulmonary api meir to the posterior costophrenic angles. 7 mm thick coronal MIP reformats were acquired. For radia tion dose reduction, the following was used: automated exposure control, adjustment of mA and/or kV according to patient size. COMPARISON: Correlation is made with the overlapping portions of cervical spine CT and abdomen pelvi s CT 01/26/2020 FINDINGS: Image quality: Excellent. Lungs and pleura: Mild dependent consolidation is seen, right worse than left, which is attributed to atelectasis. No pleural effusions or pneumothorax. Central and peripheral airways are patent and no rmal in caliber. Mediastinum: Heart size is normal. Coronary artery calcifications are seen. No pericardial effusion . No mediastinal or hilar adenopathy by size criteria. Thoracic aorta and central pulmonary arterie s are normal in size. Atherosclerotic calcification is seen. Esophagus is normal in caliber. There i s a small hiatal hernia. Bones and chest wall: Remote appearing, poorly healed rib fractures seen on the left posteriorly. No acute appearing rib fractures are seen. S-shaped scoliotic curvature is incidentally noted. Age-a ppropriate degenerative changes are seen. No suspicious bony lesions. No vertebral body compressio n fractures. No axillary or supraclavicular adenopathy by size criteria. Thyroid gland demonstrates no significant CT abnormality. Abdomen: Diffuse fatty liver infiltration can be seen. There is a right adrenal nodule seen that me asures 2.3 cm and measures 67 Hounsfield units. A prominent gallstone is seen. The visualized portion s of the upper abdominal structures are otherwise within normal limits. IMPRESSION: No significant acute posttraumatic abnormality is identified. Remote appearing left posterior rib fractures, without acute rib fractures seen. Incidental note is made of: Atelectatic calcification, including coronary artery calcification Dependent atelectasis Small hiatal hernia S shaped scoliotic curvature Fatty liver infiltration Gallstone Right adrenal nodule (please see the accompanying abdomen/pelvis CT report) Reviewed by: Mazin Sultana MD on 01/26/2020 4:20 PM AKDT Approved by: Mazin Sultana MD on 01/26/2020 4:20 PM AKDT Station ID: [id number]
[2020-01-26 17:23] LABS: BILIRUBIN,URINE NEGATIVE (NEGATIVE); GLUCOSE, URINE (UA) NEGATIVE (NEGATIVE); KETONES,URINE (UA) NEGATIVE (NEGATIVE); LEUKOCYTE ESTERASE, URINE NEGATIVE (NEGATIVE); NITRITE,URINE NEGATIVE (NEGATIVE); OCCULT BLOOD,URINE TRACE-LYSE (NEGATIVE); PH,URINE 5.5 PH (5.0-7.5); PROTEIN,URINE NEGATIVE (NEGATIVE); UROBILINOGEN,URINE 0.2 (NORMAL) E.U./dL (NORMAL)
--- NOTE | 2020-01-26 17:26 | CT Report ---
PROCEDURE: Abdomen/Pelvis W INDICATIONS: Abdominal trauma, blunt CONTRAST: IV CONTRAST: Optiray 320 ml: 100 PO CONTRAST: *NO PO CONTRAST TECHNIQUE: After the administration of 100 contrast, 5 mm thick sections acquired from the diaphragms to the sym physis. 5 mm thick coronal and sagittal reformats were acquired. For radiation dose reduction, the following was used: automated exposure control, adjustment of mA and/or kV according to patient size . COMPARISON: Correlation is made with a complete chest CT, 01/26/2020. FINDINGS: Image quality: Excellent. ABDOMEN: Lung bases: Mild dependent atelectasis is seen. Heart size is normal. Solid organs: Diffuse fatty liver infiltration is seen. The liver overall demonstrates normal size. T he spleen demonstrates normal size, without focal lesions. Gallbladder demonstrates a gallstone withi n its lumen. Biliary system is non dilated. Pancreas enhances normally. There is a right adrenal nodule seen, which measures 2.3 cm and 65 Hounsfield units. No left adrenal nodules. Kidneys demonstrate normal size and enhancement, without hydronephrosis. Peritoneum and bowel: Bowel loops demonstrate normal wall thickness and caliber. No free fluid or a ir. Nodes and vessels: No retroperitoneal or mesenteric adenopathy by size criteria. Aorta and inferior vena cava are normal in size. Atherosclerotic calcification is seen. Miscellaneous: No ventral hernias. PELVIS: Genitourinary: Bladder wall thickness is normal. Miscellaneous: No inguinal hernias or adenopathy. Bones: No suspicious bony lesions. No vertebral body compression fractures. Degenerative changes a re seen, which are most prominent involving the lumbar spine. Remote left posterior rib fractures are seen. Sacroiliac joint degenerative change is seen, including partial fusion on the left. Mild dextr oconvex scoliotic curvature is seen. Transitional lumbar anatomy is seen, with partial lumbarization of the S1 level. IMPRESSION: No significant acute posterior back abnormality is identified. Remote left posterior rib fractures are seen. No acute fractures are detected. There is a right adrenal nodule seen. Based upon these images, it cannot be defined as a benign, lipi d rich adrenal adenoma. Further evaluation is recommended with a dedicated adrenal protocol MRI (assu sruthi that there is no contraindication). Incidental note is made of: Dependent atelectasis Fatty liver infiltration Gallstone Dextroconvex scoliotic curvature Lower lumbar spine degenerative change Transitional lumbar anatomy, with partial lumbarization of S1. Partial fusion of the left sacroiliac joint Reviewed by: Mazin Sultana MD on 01/26/2020 4:25 PM MABEL Approved by: Mazin Sultana MD on 01/26/2020 4:25 PM MABEL Station ID: [id number]
[2020-01-26 17:29] LABS: CLARITY,URINE CLEAR (CLEAR)
[2020-01-26 17:35] LABS: AMPHETAMINE SCREEN,URINE NEGATIVE (NEGATIVE); BENZODIAZEPINES SCREEN, URINE NEGATIVE (NEGATIVE); COCAINE SCREEN URINE NEGATIVE (NEGATIVE); METHADONE SCREEN, URINE NEGATIVE (NEGATIVE); METHAMPHETAMINES SCREEN, URINE NEGATIVE (NEGATIVE); OPIATE SCREEN, URINE NEGATIVE (NEGATIVE); OXYCODONE SCREEN, URINE NEGATIVE (NEGATIVE); PROPOXYPHENE SCREEN, URINE NEGATIVE (NEGATIVE); TRICYCLIC ANTIDEPRESSANT,URINE NEGATIVE (NEGATIVE)
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
[2020-01-26 20:09] VITALS: BP 122/108
== END 2020-01-26 20:25 | disposition home or self-care (01) ==
LOC: EDUNIT# → ED 16:01
DX: Z04.3 Encounter for examination and observation following other accident (principal); V00.831A Fall from motorized mobility scooter, initial encounter; F10.229 Alcohol dependence with intoxication, unspecified; E27.8 Other specified disorders of adrenal gland; R60.0 Localized edema; F17.200 Nicotine dependence, unspecified, uncomplicated
CPT/HCPCS: 36415; 70450; 70486; 71260; 72125; 74177; 80053; 80306; 80320; 81003; 83690; 85025; 85610; 85730; 99284; Q9967; 81001; 87086

== ENCOUNTER 2020-03-23 01:41 | Outpatient (CLI) | payer OTHER | END 2020-03-23 01:42 | disposition critical access hospital (66) | LOC: EMS 01:41 | PROVIDERS: ATTEND Surgery | DX: R68.89 Other general symptoms and signs (principal) | CPT/HCPCS: A0425; A0429 ==

== ENCOUNTER 2020-03-23 01:55 | Emergency (ER) | payer OTHER ==
[2020-03-23] MEDS ORDERED: THIAMINE 100 MG/1 ML 2 ML MDV ONE (03:06)
[2020-03-23] MEDS ORDERED: FOLIC ACID 5 MG/1 ML 10ML MDV ONE (03:06)
[2020-03-23] MEDS ORDERED: MAGNESIUM SULFATE 1 GM/2 ML VIAL ONE (03:06)
[2020-03-23] MEDS ORDERED: KETAMINE 500 MG/10 ML VIAL ONE (03:07)
--- NOTE | 2020-03-23 04:16 | ED Physician Documentation ---
History of Present Illness - Stated complaint Stated Complaint: ETOH - History obtained from History obtained from: Patient, EMS - History of Present Illness Timing: Today - Additonal information Additional information: 69 y/o alcoholic male with a history of MS and fibromyalgia is complaining of left arm pain. He points to the inside of the left arm specifically and states he has pain and pain with movement and he is certain he has a blood clot. He is intoxicated and he is unable to tell me if he has injured himself. He denies chest pain specifically or shortness of breath. He was rude to the medics and gave no history to the medics or the call center. He appears angry on arrival to the ED. Review of Systems Constitutional: denies: Fever Eyes: denies: Decreased vision Ears: denies: Ear pain Nose: denies: Rhinorrhea / runny nose, Congestion Throat: denies: Sore throat Cardiac: reports: Pedal edema, Calf pain. denies: Chest pain / pressure, Palpitations Respiratory: denies: Dyspnea, Cough, Wheezing GI: denies: Abdominal Pain, Nausea, Vomiting : denies: Dysuria, Frequency Skin: denies: Rash Musculoskeletal: reports: Back pain, Extremity pain, Extremity swelling. denies: Neck pain Neurologic: denies: Generalized weakness, Focal weakness, Numbness PD PAST MEDICAL HISTORY - Past Medical History Cardiovascular: Congestive heart failure Respiratory: Asthma, COPD Neuro: None Endocrine/Autoimmune: None GI: GERD, Esophageal varices, GI bleed, Colon polyps, Cirrhosis : None HEENT: None Psych: Depression, Post traumatic stress disorder Musculoskeletal: Osteoarthritis, Fibromyalgia, Gout Derm: Other drug resistant infections, Other - Past Surgical History Past Surgical History: Yes General: Splenectomy Ortho: Knee replacement, Other - Present Medications Home Medications: Ambulatory Orders Medication Instructions Recorded Confirmed raNITIdine [Zantac] 150 mg PO DAILY 01/30/17 02/07/17 oxyCODONE [Roxicodone] 5 mg PO Q4-6H PRN #10 tablet 02/07/17 Bisacodyl Supp [Dulcolax Supp] 10 mg [place] 11/16/17 Cholecalciferol (Vitamin D3) 400 unit PO 11/16/17 [Vitamin D3] Lactulose [Constulose] 10 gm PO 11/16/17 Lidocaine Patch 5% [Lidoderm Patch] 1 each TOP DAILY 11/16/17 11/16/17 Multivitamin/Iron/Folic Acid 11/16/17 [Multivitamin with Iron Tablet] Nystatin 100,000 unit PO 11/16/17 Pantoprazole [Protonix] 40 mg PO 11/16/17 Polyethylene Glycol 3350 1,700 gm PO 11/16/17 [Laxaclear] Senna [Senokot] 8.6 mg PO ONCE 11/16/17 11/16/17 Tamsulosin HCl [Flomax] 0.4 mg PO 11/16/17 11/16/17 oxyCODONE [Roxicodone] 5 mg PO Q4-6H #10 tablet 11/16/17 traMADol [Ultram] 50 - 100 mg PO Q6H PRN #20 tablet 03/23/20 - Allergies Allergies/Adverse Reactions: Allergies Allergy/AdvReac Type Severity Reaction Status Date / Time ibuprofen [From Motrin] AdvReac Mild Nausea Verified 01/26/20 16:14 acetaminophen [From Tylenol] AdvReac Unknown Verified 01/26/20 16:14 NSAIDS (Non-Steroidal AdvReac Nausea Verified 01/26/20 16:14 Anti-Inflamma - Social History Does the pt smoke?: Yes Smoking Status: Current every day smoker Does the pt drink ETOH?: Yes Does the pt have substance abuse?: No - Immunizations Immunizations are current?: No Immunizations: TDAP >10years/unknown - POLST Patient has POLST: No POLST Status: Full Code PD ED PE NORMAL - Vitals Vital signs reviewed: Yes - General General: Alert and oriented X 3, Well developed/nourished, Other (swearing and angry complaining of pain in the left arm. ) - HEENT HEENT: Atraumatic, PERRL, EOMI - Neck Neck: Supple, no meningeal sign, No bony TTP - Cardiac Cardiac: RRR, No murmur - Respiratory Respiratory: No respiratory distress, Clear bilaterally - Abdomen Abdomen: Soft, Non tender - Back Back: No CVA TTP, No spinal TTP - Derm Derm: Normal color, Warm and dry, No rash - Extremities Extremities: Other (There is pedal edema bilaterally worse on the left. There is post inflamitory hyperpigmentation present bilaterally to the calves. 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 ) Results - Vitals Vitals: Vital Signs - 24 hr 03/23/20 06:11 Heart Rate 89 Respiratory 26 H Rate Blood Pressure 131/106 H O2 Saturation 98 Oxygen O2 Source Room air - EKG (time done) 0240 Rate: Rate (enter#) (81) Rhythm: NSR Intervals: Prolonged LA Ischemia: Q waves Compare to prior EKG: Unchanged from prior EKG (SPT 08-27-2018 no changes) Computer interpretation: Disagree with computer (I do not see ST elevation in the anterior leads) PD MEDICAL DECISION MAKING - ED course Complexity details: reviewed old records, reviewed results, re-evaluated patient, considered differential, d/w patient ED course: 69m y/o alcoholic male presents to the ED intoxicated and complaining of left shoulder and arm pain. He has increased pain with palpation and movement and is a super poor historian. We worked up his heart with unchanged EKG and negative troponin. At shift change films of the chest and shoulder are pending and care is turned over to Dr. Breen. His x-ray shows calcific tendonitis and he is given IV decadron for the pain. Departure - Departure Disposition: 01 Home, Self Care Clinical Impression: Calcific tendonitis Pain in extremity Qualifiers: Extremity pain location: upper extremity Laterality: left Qualified Code(s): M79.602 - Pain in left arm Condition: Stable Instructions: ED Tendinitis Calcific Follow-Up: Your, doctor [Other] Prescriptions: traMADol [Ultram] 50 - 100 mg PO Q6H PRN #20 tablet PRN Reason: Pain
[2020-03-23] MEDS ORDERED: MAGNESIUM SULFATE IM ONE ×5 (06:00)
[2020-03-23] MEDS ORDERED: THIAMINE IM ONE ×5 (06:00)
[2020-03-23] MEDS ORDERED: [UNRECOGNIZED DRUG - OTHER] IM ONE ×5 (06:00)
[2020-03-23] MEDS ORDERED: FOLIC ACID IM ONE ×5 (06:00)
[2020-03-23] MEDS ORDERED: DEXAMETHASONE 10 MG/ML VIAL IVP STA (07:59)
[2020-03-23] MEDS ORDERED: DEXAMETHASONE 10 MG/ML VIAL ONE (08:26)
[2020-03-23 08:39] VITALS: BP 145/103
[2020-03-23] MEDS ORDERED: oxyCODONE 5 MG TABLET PO STA (09:05)
[2020-03-23] MEDS ORDERED: oxyCODONE 5 MG TABLET ONE (09:37)
[2020-03-23 18:42] LABS: ALBUMIN 2.9 g/dL (3.2-5.5); ALBUMIN/GLOBULIN RATIO 0.7 (1.0-2.2); BILIRUBIN,TOTAL 0.9 mg/dL (0.2-1.0); CALCIUM 8.5 mg/dL (8.5-10.3); CREATININE 0.8 mg/dL (0.6-1.2); TOTAL PROTEIN 7.1 g/dL (6.7-8.2)
[2020-03-23 18:44] LABS: BASOPHILS % (AUTO) 0.5 %; EOSINOPHILS # (AUTO) 0.1 10^3/uL (0.0-0.7); EOSINOPHILS % (AUTO) 2.4 %; HGB - HEMOGLOBIN 12.8 g/dL (14.0-18.0); LYMPHOCYTES # (AUTO) 1.5 10^3/uL (1.5-3.5); LYMPHOCYTES % (AUTO) 35.4 %; MEAN CORPUSCULAR HEMOGLOBIN 32.9 pg (27.0-31.0); MEAN CORPUSCULAR HGB CONC 33.9 g/dL (32.0-36.0); MEAN CORPUSCULAR VOLUME 97.2 fL (80.0-94.0); MEAN PLATELET VOLUME 11.9 fL (7.4-11.4); MONOCYTES # (AUTO) 0.4 10^3/uL (0.0-1.0); MONOCYTES % (AUTO) 10.7 %; NEUTROPHILS # (AUTO) 2.1 10^3/uL (1.5-6.6); NEUTROPHILS % (AUTO) 50.5 %; PLT - PLATELET COUNT 71 10^3/uL (130-450); RED BLOOD COUNT 3.89 10^6/uL (4.70-6.10); RED CELL DISTRIBUTION WIDTH 13.6 % (12.0-15.0); WHITE BLOOD COUNT 4.1 x10^3/uL (4.8-10.8)
--- NOTE | 2020-03-23 20:44 | ED Physician Documentation ---
ED Addendum - Addendum Addendum: 03/23/20 20:41Patient awaiting xray results. I talked with Radiologist who felt shoulder okay with calcified tendonosis old. No fractures. Old healing/healed fractures in ribs. No acute injuries noted. Patient doing okay on recheck, able to talk sentences, is oriented. Ask for pain med. Limited by allergy list. Discharged aftert Social Work talked with him about resources for self care, transportation. Diagnoses: shoulder contusion, rib contusion, alcohol intoxication
--- NOTE | 2020-03-24 08:26 | XRAY Report ---
PROCEDURE: Shoulder 3 View LT INDICATIONS: LEFT SHOULDER JOINT PAIN, MULTIPLE FALLS TECHNIQUE: 3 views of the shoulder were acquired. COMPARISON: None. FINDINGS: Bones: Heterotopic ossification is seen lateral to the left humeral neck that may be related to a rem ote prior fracture or soft tissue injury. No acute fracture is identified in the shoulder. Chronic le ft-sided rib fractures are seen. Narrowing of the acromiohumeral interval likely indicates underlying rotator cuff tendon pathology. Mild acromioclavicular degenerative changes are noted. Soft tissues: Included lungs are clear. IMPRESSION: 1. No acute fracture or dislocation. 2. Sequela of prior trauma including heterotopic ossification adjacent to the left proximal femur an d multiple chronic appearing left rib fractures. 3. Narrowing of the acromiohumeral interval may indicate underlying rotator cuff tendon tearing. Findings were discussed with Dr. Breen of the Emergency Department by telephone on 03/23/2020 at ap proximately 9:00 AM. This dictation is being submitted the following day due to system downtime. Reviewed by: Goran London MD on 03/24/2020 8:24 AM PDT Approved by: Goran London MD on 03/24/2020 8:24 AM PDT Station ID: [id number]
--- NOTE | 2020-03-24 08:31 | XRAY Report ---
PROCEDURE: Chest 1 View X-Ray INDICATIONS: CHEST PAIN TECHNIQUE: One view of the chest was acquired. COMPARISON: CT chest the 2019, chest radiographs 08/27/2018 FINDINGS: Surgical changes and devices: None. Lungs and pleura: No pleural effusions or pneumothorax. Lungs are clear. Mediastinum: Mediastinal contours appear normal. Heart size is normal. Bones and chest wall: There is a healing fracture of the right distal clavicle with associated callus formation. Chronic appearing fractures are seen in the left posterior ribs and likely the right fift h rib. Overlying soft tissues appear unremarkable. IMPRESSION: 1. No acute cardiopulmonary abnormality. No pneumothorax or pleural effusion. 2. Healing right distal clavicle fracture. 3. Chronic bilateral rib fractures. Findings were discussed with Dr. Breen of the Emergency Department by telephone on 03/23/2020 at ap proximately 9:00 AM. This dictation is being submitted the following day due to system downtime. Reviewed by: Goran London MD on 03/24/2020 8:30 AM PDT Approved by: Goran London MD on 03/24/2020 8:30 AM PDT Station ID: [id number]
== END 2020-03-23 12:15 | disposition home or self-care (01) ==
LOC: ED 01:55
DX: S40.012A Contusion of left shoulder, initial encounter (principal); S20.219A Contusion of unspecified front wall of thorax, initial encounter; X58.XXXA Exposure to other specified factors, initial encounter; M75.32 Calcific tendinitis of left shoulder; M79.602 Pain in left arm; F10.229 Alcohol dependence with intoxication, unspecified; R60.0 Localized edema; I44.0 Atrioventricular block, first degree; G35 Multiple sclerosis; M79.7 Fibromyalgia; F17.200 Nicotine dependence, unspecified, uncomplicated
CPT/HCPCS: 36415; 71045; 73030; 80053; 80320; 83690; 84484; 85025; 96374; 99283; 99284; A9270; J3411

== ENCOUNTER 2020-12-12 10:55 | Outpatient (CLI) | payer OTHER | END 2020-12-12 10:56 | disposition critical access hospital (66) | LOC: EMS 10:55 | DX: R60.0 Localized edema (principal) | CPT/HCPCS: A0425; A0429 ==

== ENCOUNTER 2020-12-12 11:14 | Emergency (ER) | payer OTHER ==
--- NOTE | 2020-12-12 11:46 | ED Physician Documentation ---
History of Present Illness - Stated complaint Stated Complaint: LFT LEG PX - Chief complaint Chief Complaint: Ext Problem - Additonal information Additional information: Old male is brought to the emergency department for evaluation of left leg wound, swelling and erythema. This gentleman lives in a trailer and his landlord checked on him today and found that the house and floor was covered with feces rats as well as blood. Don reports that he was sleeping in his recliner and woke up and found rats eating at his left lower leg. He does have chronic skin changes on the left leg consistent with a peripheral vascular disease or lymphedema but he says recently has become more painful and more swollen. unsure if fevers. This gentleman admits to drinking alcohol daily because they cut him off of his pain medications. He is otherwise a very poor historian. When asked about the medications he takes he says oh, on your kidding me there might be 50 of them. Review of Systems Unable to obtain: Other (poor historian) Constitutional: denies: Fever, Chills Cardiac: denies: Chest pain / pressure, Palpitations Respiratory: denies: Dyspnea, Cough GI: reports: Diarrhea : denies: Dysuria, Frequency Skin: reports: Abrasion (s), Laceration (s) PD PAST MEDICAL HISTORY - Past Medical History Cardiovascular: Congestive heart failure Respiratory: Asthma, COPD Neuro: None Endocrine/Autoimmune: None GI: GERD, Esophageal varices, GI bleed, Colon polyps, Cirrhosis : None HEENT: None Psych: Depression, Post traumatic stress disorder Musculoskeletal: Osteoarthritis, Fibromyalgia, Gout Derm: Other drug resistant infections, Other - Past Surgical History Past Surgical History: Yes General: Splenectomy Ortho: Knee replacement, Other - Present Medications Home Medications: Ambulatory Orders Medication Instructions Recorded Confirmed raNITIdine [Zantac] 150 mg PO DAILY 01/30/17 02/07/17 oxyCODONE [Roxicodone] 5 mg PO Q4-6H PRN #10 tablet 02/07/17 Bisacodyl Supp [Dulcolax Supp] 10 mg MT 11/16/17 Cholecalciferol (Vitamin D3) 400 unit PO 11/16/17 [Vitamin D3] Lactulose [Constulose] 10 gm PO 11/16/17 Lidocaine Patch 5% [Lidoderm Patch] 1 each TOP DAILY 11/16/17 11/16/17 Multivitamin/Iron/Folic Acid 11/16/17 [Multivitamin with Iron Tablet] Nystatin 100,000 unit PO 11/16/17 Pantoprazole [Protonix] 40 mg PO 11/16/17 Senna [Senokot] 8.6 mg PO ONCE 11/16/17 11/16/17 Tamsulosin HCl [Flomax] 0.4 mg PO 11/16/17 11/16/17 oxyCODONE [Roxicodone] 5 mg PO Q4-6H #10 tablet 11/16/17 polyethylene glycoL 3350 1,700 gm PO 11/16/17 [Laxaclear] traMADol [Ultram] 50 - 100 mg PO Q6H PRN #20 tablet 03/23/20 - Allergies Allergies/Adverse Reactions: Allergies Allergy/AdvReac Type Severity Reaction Status Date / Time ibuprofen [From Motrin] AdvReac Mild Nausea Verified 12/12/20 11:28 acetaminophen [From Tylenol] AdvReac Unknown Verified 12/12/20 11:28 NSAIDS (Non-Steroidal AdvReac Nausea Verified 12/12/20 11:28 Anti-Inflamma - Social History Does the pt smoke?: Yes Smoking Status: Current every day smoker Does the pt drink ETOH?: Yes Does the pt have substance abuse?: No - Immunizations Immunizations are current?: No Immunizations: TDAP >10years/unknown - POLST Patient has POLST: No POLST Status: Full Code PD ED PE EXPANDED - General General: Disheveled, poorly kept (Very poor hygiene.) - Cardiac Cardiac: Regular Rate, Radial strong equal, Cap refill < 2 sec - Respiratory Respiratory: No: Distress, Labored - Abdomen Abdomen: Hyperactive BS. No: Tender to palpation - Extremities Extremities: Left leg (Significant swelling erythema and chronic skin changes on the left lower leg below the knee. Lateral side does show multiple areas with yellow and purulent drainage more tender than the rest of the leg. Unable to appreciate palpable pulse in this extremity secondary to the swelling though it is wa) - Neuro Neuro: Alert and Oriented X 3, CNII-XII intact - GCS Eye Opening: Spontaneous Motor: Obeys Commands Verbal: Oriented Total: 15 Results - Vitals Vitals: Vital Signs - 24 hr 12/12/20 12/12/20 12/12/20 11:15 11:47 12:00 Temperature 36.5 C Heart Rate 95 89 89 Respiratory 20 18 19 Rate Blood Pressure 120/85 H 124/92 H 107/75 O2 Saturation 96 95 93 12/12/20 12/12/20 12/12/20 12:30 13:00 13:30 Temperature 36.5 C 36.5 C 36.5 C Heart Rate 87 80 82 Respiratory 14 16 16 Rate Blood Pressure 134/82 H 116/80 127/80 O2 Saturation 100 99 99 12/12/20 12/12/20 12/12/20 14:00 14:30 15:00 Temperature 36.5 C 36.6 C Heart Rate 84 84 86 Respiratory 16 16 18 Rate Blood Pressure 136/84 H 140/70 H 146/74 H O2 Saturation 100 100 100 12/12/20 12/12/20 15:30 16:33 Temperature Heart Rate 76 81 Respiratory 15 18 Rate Blood Pressure 145/89 H 141/95 H O2 Saturation 99 100 Oxygen O2 Source Room air - Labs Labs: Laboratory Tests 12/12/20 12/12/20 12/12/20 12:06 12:06 12:06 WBC 6.2 RBC 4.13 L Hgb 13.1 L Hct 38.6 L MCV 93.5 MCH 31.7 H MCHC 33.9 RDW 14.2 Plt Count 98 L MPV 11.1 Neut # (Auto) 3.8 Lymph # (Auto) 1.3 L [place] # (Auto) 0.7 Eos # (Auto) 0.3 Baso # (Auto) 0.1 Absolute Nucleated RBC 0.00 Nucleated RBC % 0.0 Sodium 137 Potassium 3.8 Chloride 104 Carbon Dioxide 23 Anion Gap 10.0 BUN 13 Creatinine 0.9 Estimated GFR (MDRD) 83 L Glucose 128 H Lactic Acid 2.0 Calcium 8.9 Total Bilirubin 1.1 H AST 64 H ALT 37 Alkaline Phosphatase 136 H Total Protein 8.5 H Albumin 3.6 Globulin 4.9 H Albumin/Globulin Ratio 0.7 L Urine Color Urine Clarity Urine pH Ur Specific [place] Urine Protein Urine Glucose (UA) Urine Ketones Urine Occult Blood Urine Nitrite Urine Bilirubin Urine Urobilinogen Ur Leukocyte Esterase Urine RBC Urine WBC Ur Squamous Epith Cells Urine Bacteria Urine Culture Comments Ethyl Alcohol 188.1 12/12/20 12:36 WBC RBC Hgb Hct MCV MCH MCHC RDW Plt Count MPV Neut # (Auto) Lymph # (Auto) [place] # (Auto) Eos # (Auto) Baso # (Auto) Absolute Nucleated RBC Nucleated RBC % Sodium Potassium Chloride Carbon Dioxide Anion Gap BUN Creatinine Estimated GFR (MDRD) Glucose Lactic Acid Calcium Total Bilirubin AST ALT Alkaline Phosphatase Total Protein Albumin Globulin Albumin/Globulin Ratio Urine Color YELLOW Urine Clarity CLEAR Urine pH 5.5 Ur Specific [place] <=1.005 Urine Protein NEGATIVE Urine Glucose (UA) NEGATIVE Urine Ketones NEGATIVE Urine Occult Blood TRACE-INTA Urine Nitrite NEGATIVE Urine Bilirubin NEGATIVE Urine Urobilinogen 0.2 (NORMAL) Ur Leukocyte Esterase NEGATIVE Urine RBC 0-5 Urine WBC 0-3 Ur Squamous Epith Cells NONE SEEN Urine Bacteria None Seen Urine Culture Comments NOT INDICATED Ethyl Alcohol - Rads (name of study) CXR Radiology: Final report received (No evidence of acute pulmonary process.) Left lower leg XR Radiology: Final report received (Diffuse edema. No evidence of acute bony abnormality of the left tibia and fibula.) CT Radiology: Final report received (Diffuse cellulitis. No FC, no free air) PD MEDICAL DECISION MAKING - ED course Complexity details: reviewed results, re-evaluated patient, d/w patient ED course: 7-year-old male was brought to the emergency department for evaluation of left lower extremity wounds. He has chronic lower leg swelling likely secondary to lymphedema or peripheral vascular disease. However his landlord checked in on him today and found him asleep in his recliner with rats gnawing at his legs. Patient reports that the rats have also been lapping of the blood that is on the floor. By report there was a very poor living situation at the home and patient is very disheveled. He is a daily alcohol drinker. He denies any fevers. He reports that due to the worsening leg swelling and pain he is no longer able to ambulate. He has been trying to get around with a wheelchair but is finding that more difficult. Screening labs show no acute worrisome abnormalities but the lower extremity wounds are extensive and consistent with cellulitis. A CT this leg confirms this without findings of necrotizing fasciitis. I did ask And show to our daytime hospitalist to admit the patient but he declined to admit for cellulitis as there were no vital sign abnormalities or lab abnormalities. He suggested that we give the patient IV antibiotics and start him on oral medications. My concern is that with the extent of the ce llulitis he is not likely to do well on oral antibiotics alone however to declined to admit the patient. I did ask our social media editor to speak with the patient as we do not have a safe discharge plan home. The patient appears very unable to care for himself. Unfortunately after many hours in the emergency department the patient became very agitated. He requested a wheelchair to go to the bathroom. Once he was in the wheelchair he requested to leave the hospital and asked for somebody to roll him out to the bus stop. I discussed with him extensively that I did not feel that he was able to care for himself or his leg at home but he declined to remain in the hospital. He ultimately eloped from the emergency department before I could discuss further care option or AMA. Impression: Alcohol abuse Left leg cellulitis Departure - Departure Disposition: ED Elope Discharge Date/Time: 12/12/20 17:45
[2020-12-12 12:30] LABS: BASOPHILS # (AUTO) 0.1 10^3/uL (0.0-0.1); BASOPHILS % (AUTO) 0.8 %; EOSINOPHILS # (AUTO) 0.3 10^3/uL (0.0-0.7); EOSINOPHILS % (AUTO) 4.7 %; HCT - HEMATOCRIT 38.6 % (42.0-52.0); HGB - HEMOGLOBIN 13.1 g/dL (14.0-18.0); LYMPHOCYTES # (AUTO) 1.3 10^3/uL (1.5-3.5); LYMPHOCYTES % (AUTO) 20.9 %; MEAN CORPUSCULAR HEMOGLOBIN 31.7 pg (27.0-31.0); MEAN CORPUSCULAR HGB CONC 33.9 g/dL (32.0-36.0); MEAN CORPUSCULAR VOLUME 93.5 fL (80.0-94.0); MEAN PLATELET VOLUME 11.1 fL (7.4-11.4); MONOCYTES # (AUTO) 0.7 10^3/uL (0.0-1.0); MONOCYTES % (AUTO) 11.2 %; NEUTROPHILS # (AUTO) 3.8 10^3/uL (1.5-6.6); NEUTROPHILS % (AUTO) 62.1 %; PLT - PLATELET COUNT 98 10^3/uL (130-450); RED BLOOD COUNT 4.13 10^6/uL (4.70-6.10); RED CELL DISTRIBUTION WIDTH 14.2 % (12.0-15.0); WHITE BLOOD COUNT 6.2 x10^3/uL (4.8-10.8)
[2020-12-12 12:31] LABS: ALBUMIN 3.6 g/dL (3.2-5.5); ALBUMIN/GLOBULIN RATIO 0.7 (1.0-2.2); BILIRUBIN,TOTAL 1.1 mg/dL (0.2-1.0); CALCIUM 8.9 mg/dL (8.5-10.3); CREATININE 0.9 mg/dL (0.6-1.2); ETOH - ETHANOL 188.1 mg/dL; POTASSIUM 3.8 mmol/L (3.5-5.0); TOTAL PROTEIN 8.5 g/dL (6.7-8.2)
[2020-12-12 12:44] LABS: BILIRUBIN,URINE NEGATIVE (NEGATIVE); GLUCOSE, URINE (UA) NEGATIVE (NEGATIVE); KETONES,URINE (UA) NEGATIVE (NEGATIVE); LEUKOCYTE ESTERASE, URINE NEGATIVE (NEGATIVE); NITRITE,URINE NEGATIVE (NEGATIVE); OCCULT BLOOD,URINE TRACE-INTA (NEGATIVE); PH,URINE 5.5 PH (5.0-7.5); PROTEIN,URINE NEGATIVE (NEGATIVE); UROBILINOGEN,URINE 0.2 (NORMAL) E.U./dL (NORMAL)
[2020-12-12 12:45] LABS: BACTERIA,URINE None Seen /HPF (None Seen); CLARITY,URINE CLEAR (CLEAR); RBC,URINE 0-5 /HPF (0-5); SQUAMOUS EPITHELIAL CELL,UR NONE SEEN (<= Few); WBC,URINE 0-3 /HPF (0-3)
--- NOTE | 2020-12-12 12:51 | XRAY Report ---
PROCEDURE: Chest 1 View X-Ray INDICATIONS: chest pain TECHNIQUE: One view of the chest was acquired. COMPARISON: 03/23/2020 FINDINGS: Surgical changes and devices: None. Lungs and pleura: No pleural effusions or pneumothorax. Lungs are clear. Mediastinum: Mediastinal contours appear normal. Heart size is normal. Bones and chest wall: No suspicious bony lesions. Multiple old healed bilateral rib fractures. Overl jane soft tissues appear unremarkable. IMPRESSION: No evidence acute pulmonary process. Reviewed by: Pop Leggett MD on 12/12/2020 11:50 AM MABEL Approved by: Pop Leggett MD on 12/12/2020 11:50 AM MABEL Station ID: [id number]
--- NOTE | 2020-12-12 12:52 | XRAY Report ---
PROCEDURE: Tib/Fib LT INDICATIONS: swelling, infection TECHNIQUE: 2 views of the tibia and fibula were acquired. COMPARISON: FINDINGS: Bones: No fractures or dislocations. No suspicious bony lesions. Soft tissues: No suspicious soft tissue calcifications or masses. Diffuse subcutaneous edema. No ra diopaque foreign body or soft tissue gas. IMPRESSION: Diffuse edema. No evidence of acute bony abnormality of the left tibia and fibula. Reviewed by: Pop Leggett MD on 12/12/2020 11:51 AM MABEL Approved by: Pop Leggett MD on 12/12/2020 11:51 AM MABEL Station ID: [id number]
[2020-12-12] MEDS ORDERED: IOVERSOL 320 100 ML VIAL IVP ONE ×2 (13:06→14:53)
--- NOTE | 2020-12-12 14:22 | CT Report ---
PROCEDURE: LOWER EXTREMITY W - LT INDICATIONS: swelling, erythema, purulent drainage TECHNIQUE: Noncontrast 3-mm axial sections acquired from above the knee through the foot, with coronal and sagit nicole reformats after the administration of intravenous contrast. Sagittal and coronal reformats. COMPARISON: None. FINDINGS: Image quality: Excellent. Bones: No acute fracture or dislocation. No findings of osteomyelitis. Soft tissues: There is straight line flow from the popliteal artery through the foot. The 3 trifurca tion vessels are continuous, with atherosclerotic disease. There is diffuse subcutaneous edema. No so ft tissue gas or radiopaque foreign body. Impression: Diffuse cellulitic change. No radiopaque foreign body or soft tissue gas or findings of o steomyelitis or abscess. Reviewed by: Pop Leggett MD on 12/12/2020 1:21 PM MABEL Approved by: Pop Leggett MD on 12/12/2020 1:21 PM MABEL Station ID: [id number]
[2020-12-12] MEDS ORDERED: cefTRIAXone 2 GM in SODIUM CHLORIDE 0.9% MINIBAG 100 ML IV STA (14:56)
[2020-12-12 16:34] VITALS: BP 141/95
== END 2020-12-12 17:45 | disposition left against medical advice (07) ==
LOC: EDUNIT# → ED 11:14
DX: L03.116 Cellulitis of left lower limb (principal); F10.10 Alcohol abuse, uncomplicated; F17.200 Nicotine dependence, unspecified, uncomplicated; Z74.2 Need for assistance at home and no other household member able to render care
CPT/HCPCS: 36415; 71045; 73590; 73701; 80053; 80320; 81001; 83605; 85025; 87040; 96365; 99283; 99284; Q9967; 87086

== ENCOUNTER 2021-01-13 14:37 | Outpatient (CLI) | payer OTHER | END 2021-01-13 14:38 | disposition critical access hospital (66) | LOC: EMS 14:37 | DX: R40.20 Unspecified coma (principal) | CPT/HCPCS: A0425; A0427 ==

== ENCOUNTER 2021-01-13 14:52 | Emergency (ER) | payer OTHER ==
[2021-01-13] MEDS ORDERED: NALOXONE 2 MG in SODIUM CHLORIDE 0.9% 495 ML IV STA (14:56)
--- NOTE | 2021-01-13 15:03 | ED Physician Documentation ---
PD HPI ALTERED MENTAL STATUS - Stated complaint Stated Complaint: OD - History obtained from History obtained from: EMS - Additional information Additional information: 70-year-old gentleman with history of alcoholism and chronic narcotic use was reportedly with a friend using injectable heroin and had a respiratory arrest. On arrival he is being bagged and had just gotten his fourth dose of Narcan, two nasal and two IV. Review of Systems Unable to obtain: AMS PD PAST MEDICAL HISTORY - Past Medical History Cardiovascular: Congestive heart failure Respiratory: Asthma, COPD Neuro: None Endocrine/Autoimmune: None GI: GERD, Esophageal varices, GI bleed, Colon polyps, Cirrhosis : None HEENT: None Psych: Depression, Post traumatic stress disorder Musculoskeletal: Osteoarthritis, Fibromyalgia, Gout Derm: Other drug resistant infections, Other - Past Surgical History Past Surgical History: Yes General: Splenectomy Ortho: Knee replacement, Other - Present Medications Home Medications: Ambulatory Orders Medication Instructions Recorded Confirmed raNITIdine [Zantac] 150 mg PO DAILY 01/30/17 02/07/17 oxyCODONE [Roxicodone] 5 mg PO Q4-6H PRN #10 tablet 02/07/17 Bisacodyl Supp [Dulcolax Supp] 10 mg CO 11/16/17 Cholecalciferol (Vitamin D3) 400 unit PO 11/16/17 [Vitamin D3] Lactulose [Constulose] 10 gm PO 11/16/17 Lidocaine Patch 5% [Lidoderm Patch] 1 each TOP DAILY 11/16/17 11/16/17 Multivitamin/Iron/Folic Acid 11/16/17 [Multivitamin with Iron Tablet] Nystatin 100,000 unit PO 11/16/17 Pantoprazole [Protonix] 40 mg PO 11/16/17 Senna [Senokot] 8.6 mg PO ONCE 11/16/17 11/16/17 Tamsulosin HCl [Flomax] 0.4 mg PO 11/16/17 11/16/17 oxyCODONE [Roxicodone] 5 mg PO Q4-6H #10 tablet 11/16/17 polyethylene glycoL 3350 1,700 gm PO 11/16/17 [Laxaclear] traMADol [Ultram] 50 - 100 mg PO Q6H PRN #20 tablet 03/23/20 - Allergies Allergies/Adverse Reactions: Allergies Allergy/AdvReac Type Severity Reaction Status Date / Time ibuprofen [From Motrin] AdvReac Mild Nausea Verified 01/13/21 14:56 acetaminophen [From Tylenol] AdvReac Unknown Verified 01/13/21 14:56 NSAIDS (Non-Steroidal AdvReac Nausea Verified 01/13/21 14:56 Anti-Inflamma - Social History Does the pt smoke?: Yes Smoking Status: Current every day smoker Does the pt drink ETOH?: Yes Does the pt have substance abuse?: No - Immunizations Immunizations are current?: No Immunizations: TDAP >10years/unknown - POLST Patient has POLST: No POLST Status: Full Code PD ED PE NORMAL - Vitals Vital signs reviewed: Yes - General General: Other (He is basically obtunded, with vigorous stimulus he will withdraw to pain. He is incontinent of urine.) - HEENT HEENT: Other (Pinpoint pupils) - Neck Neck: Supple, no meningeal sign, No bony TTP - Cardiac Cardiac: RRR, No murmur - Respiratory Respiratory: Other (On arrival he had just gotten Narcan and his respiratory effort was normal and his sats were unremarkable.) - Abdomen Abdomen: Non tender (With multiple well-healed surgical scars) - Back Back: No CVA TTP, No spinal TTP - Derm Derm: Normal color, Warm and dry, Other (Venous stasis changes of the legs) - Neuro Eye Opening: None Motor: Withdraws to Pain Verbal: Inappropriate GCS Score: 8 Results - Vitals Vitals: Vital Signs - 24 hr 01/13/21 01/13/21 01/13/21 14:56 15:42 17:47 Temperature 36.5 C Heart Rate 95 91 75 Respiratory 16 20 18 Rate Blood Pressure 130/92 H 116/88 H 135/95 H O2 Saturation 94 97 95 Oxygen O2 Source Room air - EKG (time done) 1457 Rate: Rate (enter#) (93) Rhythm: NSR [place]: Normal Intervals: Prolonged CO. No: Prolonged QT QRS: Normal Ischemia: Non specific changes. No: ST elevation c/w ischemia, ST depression - Labs Labs: Laboratory Tests 01/13/21 01/13/21 01/13/21 15:06 15:06 15:06 WBC 4.5 L RBC 3.97 L Hgb 12.5 L Hct 40.2 L MCV 101.3 H MCH 31.5 H MCHC 31.1 L RDW 13.8 Plt Count 103 L MPV 10.2 Neut # (Auto) 2.2 Lymph # (Auto) 1.6 [place] # (Auto) 0.5 Eos # (Auto) 0.2 Baso # (Auto) 0.0 Absolute Nucleated RBC 0.00 Nucleated RBC % 0.0 Sodium 143 Potassium 3.5 Chloride 113 H Carbon Dioxide 19 L Anion Gap 11.0 BUN 11 Creatinine 0.7 Estimated GFR (MDRD) 111 Glucose 130 H Calcium 8.1 L Total Bilirubin 0.9 AST 64 H ALT 52 Alkaline Phosphatase 124 H Total Protein 7.1 Albumin 3.2 Globulin 3.9 Albumin/Globulin Ratio 0.8 L Lipase 64 H TSH 1.88 Salicylates < 6.0 Acetaminophen < 10 L Ethyl Alcohol 236.4 PD MEDICAL DECISION MAKING - ED course ED course: 70-year-old gentleman presents after respiratory arrest due to polydrug overdose including alcohol and heroin. I did discuss the case with his nurse practitioner at the OR, Giovanni Urias. Patient has been lost to follow-up and Mr. Urias plans to discontinue his prescriptions until he can be seen again. He was observed for several hours with complete return to his baseline mental status. We had a long talk. He externalizes all the problems in his life to remote medical issues, but he really has not spent much effort taking care of himself at and at the same time has spent a lot of effort seeking relief in alcohol and illicit drugs. He was agreeable to talk to the social media campaign manager, But the social media campaign manager had gone home by the time he sobered up enough to talk to them. Departure - Departure Disposition: 01 Home, Self Care Clinical Impression: Alcohol abuse with alcohol-induced disorder, Drug overdose, Heroin abuse Alcohol intoxication Qualifiers: Complication of substance-induced condition: with delirium Qualified Code(s): F10.921 - Alcohol use, unspecified with intoxication delirium Condition: Good Record reviewed to determine appropriate education?: Yes Instructions: ED Drug Abuse General, ED Alcohol Intoxication Comments: Unfortunately, as per our discussion you feel that all of your current problems are related to your underlying medical illnesses and previous injuries. The truth of the matter is that all of your current problems are related to your ongoing drug and alcohol abuse and failure to follow-up with your primary care physician. I strongly recommend you abstain from alcohol and drugs and follow- up with your nurse practitioner, Giovanni Urias at the [facility]. The phone number there is [phone]. Return anytime for new or worsening symptoms Discharge Date/Time: 01/13/21 17:48
[2021-01-13 15:15] LABS: BASOPHILS % (AUTO) 0.9 %; EOSINOPHILS # (AUTO) 0.2 10^3/uL (0.0-0.7); EOSINOPHILS % (AUTO) 3.3 %; HCT - HEMATOCRIT 40.2 % (42.0-52.0); HGB - HEMOGLOBIN 12.5 g/dL (14.0-18.0); LYMPHOCYTES # (AUTO) 1.6 10^3/uL (1.5-3.5); LYMPHOCYTES % (AUTO) 35.8 %; MEAN CORPUSCULAR HEMOGLOBIN 31.5 pg (27.0-31.0); MEAN CORPUSCULAR HGB CONC 31.1 g/dL (32.0-36.0); MEAN CORPUSCULAR VOLUME 101.3 fL (80.0-94.0); MEAN PLATELET VOLUME 10.2 fL (7.4-11.4); MONOCYTES # (AUTO) 0.5 10^3/uL (0.0-1.0); MONOCYTES % (AUTO) 10.4 %; NEUTROPHILS # (AUTO) 2.2 10^3/uL (1.5-6.6); NEUTROPHILS % (AUTO) 49.4 %; PLT - PLATELET COUNT 103 10^3/uL (130-450); RED BLOOD COUNT 3.97 10^6/uL (4.70-6.10); RED CELL DISTRIBUTION WIDTH 13.8 % (12.0-15.0); WHITE BLOOD COUNT 4.5 x10^3/uL (4.8-10.8)
[2021-01-13 15:27] LABS: ACETAMINOPHEN < 10 ug/mL (10-30); ALBUMIN 3.2 g/dL (3.2-5.5); ALBUMIN/GLOBULIN RATIO 0.8 (1.0-2.2); ALKALINE PHOSPHATASE 124 IU/L (42-121); ALT ALANINE AMINOTRANSFERASE 52 IU/L (10-60); AST ASPARTATE AMINOTRANSFERASE 64 IU/L (10-42); BILIRUBIN,TOTAL 0.9 mg/dL (0.2-1.0); BUN - BLOOD UREA NITROGEN 11 mg/dL (6-20); CALCIUM 8.1 mg/dL (8.5-10.3); CARBON DIOXIDE - CO2 19 mmol/L (21-32); CHLORIDE 113 mmol/L (101-111); CREATININE 0.7 mg/dL (0.6-1.2); ETOH - ETHANOL 236.4 mg/dL; GFR - MDRD 111 (>89); GLUCOSE 130 mg/dL (70-100); LIPASE 64 U/L (22-51); POTASSIUM 3.5 mmol/L (3.5-5.0); SALICYLATE < 6.0 mg/dL; SODIUM 143 mmol/L (135-145); TOTAL PROTEIN 7.1 g/dL (6.7-8.2)
[2021-01-13 17:48] VITALS: BP 135/95
== END 2021-01-13 17:48 | disposition home or self-care (01) ==
LOC: EDUNIT# → ED 14:52
DX: T50.901A Poisoning by unspecified drugs, medicaments and biological substances, accidental (unintentional), initial encounter (principal); F11.10 Opioid abuse, uncomplicated; F10.921 Alcohol use, unspecified with intoxication delirium; F17.200 Nicotine dependence, unspecified, uncomplicated
CPT/HCPCS: 36415; 80053; 80307; 80320; 80329; 83690; 84443; 85025; 93005; 99281; 99283

== ENCOUNTER 2021-12-31 20:24 | Outpatient (CLI) | payer OTHER | END 2021-12-31 20:25 | disposition EMS.NT | LOC: EMS 20:24 | DX: R46.89 Other symptoms and signs involving appearance and behavior (principal) ==

== ENCOUNTER 2022-01-01 15:00 | Outpatient (CLI) | payer OTHER | END 2022-01-01 15:01 | disposition left against medical advice (07) | LOC: EMS 15:00 | DX: L03.115 Cellulitis of right lower limb (principal); L03.116 Cellulitis of left lower limb; Z72.89 Other problems related to lifestyle ==

== ENCOUNTER 2022-06-16 12:38 | Outpatient (CLI) | payer OTHER | END 2022-06-16 12:39 | disposition short-term general hospital (02) | LOC: EMS 12:38 | DX: R10.9 Unspecified abdominal pain (principal); M25.50 Pain in unspecified joint; R60.0 Localized edema; R32 Unspecified urinary incontinence; R62.7 Adult failure to thrive | CPT/HCPCS: A0425; A0429 ==